=== PATIENT | male | born 1940 | race Caucasian/White ===

== ENCOUNTER 2017-03-06 10:17 | Emergency (ER) | payer MEDICARE, OTHER ==
[2017-03-06] MEDS ORDERED: Sodium Chloride 0.9% 1,000 ML IV SCH (10:45)
[2017-03-06] MEDS ORDERED: Sodium Chloride 0.9% 10 ML Syringe FLUSH PRN (10:45)
[2017-03-06] MEDS ORDERED: Ondansetron 4 MG/2 ML SDV IVPUSH ONE (10:45)
--- NOTE | 2017-03-06 10:49 | EDM.PDOC ---
ED HPI GENERAL MEDICAL PROBLEM - General Chief Complaint: General Stated Complaint: weakness Time Seen by Provider: 03/06/17 10:23 Source of Information: Reports: Patient, Family History Limitations: Reports: No Limitations - History of Present Illness INITIAL COMMENTS - FREE TEXT/NARRATIVE: Patient comes in after feeling fatigued, weak, tired, and decrease in appetite approximate 4-5 days. Patient has an active history of lymphoma currently undergoing treatment at the [facility]. His chemotherapy regimens is every 28 days his last treatment was the week before and the As though 13 of March. Patient/family had called [facility] today in hopes of talking to them regarding patient's status. They werer on hold for over 20 mins and unable to reach anyone so they brought him in here. Patient also complains of the cough that has progressed over the last week at times he is coughing up sputum and other times to try half and loose stool the past week. He has been using his inhaler a little bit more that is prescribed him. He has not had much energy to get around the house at times and does not even have enough energy to get up and eat. He denies any fever at the current time feels fatigued and tired and has noticed that his skin color is more yellow. Onset: Gradual Onset Date: 03/02/17 Duration: Getting Worse Quality: Reports: Other (fatigue, tired, run down) Severity: Mild Associated Symptoms: Reports: Cough, cough w sputum, Loss of Appetite, Malaise, Weakness Neck Pain Score (Numeric/FACES): 2 - Related Data Allergies Allergy/AdvReac Type Severity Reaction Status Date / Time doxycycline Allergy Other Verified 03/06/17 10:37 Home Meds: Home Meds Acetaminophen [Tylenol] 650 mg PO Q8H PRN 03/06/17 [History] Acyclovir [Zovirax] 400 mg PO BID 03/06/17 [History] Albuterol [Ventolin HFA] 2 puff IH Q4H PRN 03/06/17 [History] Aspirin 325 mg PO DAILY 03/06/17 [History] Dutasteride [Dutasteride] 1 tab PO DAILY 03/06/17 [History] Omeprazole [Omeprazole] 20 mg PO DAILY 03/06/17 [History] Prochlorperazine Maleate [Compazine] 10 mg PO QID PRN 03/06/17 [History] Sulfamethoxazole/Trimethoprim [Bactrim Ds Tablet] 1 each PO MOWEFR 03/06/17 [ History] Tamsulosin [Flomax] 0.4 mg PO BIDPC 03/06/17 [History] diphenhydrAMINE HCl [Benadryl] 25 mg PO Q8H PRN 03/06/17 [History] Past Medical History Oncologic (Cancer) History: Reports: Non-Hodgkin's Lymphoma Social & Family History - Tobacco Use Smoking Status *Q: Never Smoker - Recreational Drug Use Recreational Drug Use: No ED ROS GENERAL - Review of Systems Review Of Systems: See Below Constitutional: Reports: Chills, Malaise, Weakness, Fatigue, Decreased Appetite , Weight Loss HEENT: Reports: No Symptoms Respiratory: Reports: Cough, Sputum GI/Abdominal: Reports: Anorexia, Diarrhea, Nausea : Reports: No Symptoms Musculoskeletal: Reports: No Symptoms Skin: Reports: Jaundice Neurological: Reports: No Symptoms Psychiatric: Reports: No Symptoms Immunologic: Reports: No Symptoms ED EXAM, GENERAL - Physical Exam Exam: See Below Exam Limited By: No Limitations General Appearance: Alert, Lethargic (will answer questions but closes eyes inbetween answers) Respiratory/Chest: Decreased Breath Sounds, Crackles Cardiovascular: Normal Peripheral Pulses GI/Abdominal: Normal Bowel Sounds, Soft, Non-Tender, No Distention, No Mass, Pelvis Stable, Abnormal Bowel Sounds (hyperactive ) (Male) Exam: Deferred Rectal (Males) Exam: Deferred Extremities: Normal Inspection, Normal Range of Motion, Non-Tender, No Pedal Edema, Normal Capillary Refill Neurological: Alert, Oriented Psychiatric: Normal Affect, Normal Mood Skin Exam: Warm, Dry, Jaundice ED GENERAL MEDICAL PROCEDURES - Additional/Other Procedure(s) Other (Free Text) Procedure(s): blood transfusion ordered due to severe anemia. The risk and the benefits have been discussed with the pt. Consent formed signed. Code status discussed. Pt would like to continue with the blood transfusion and would like to remain a code level 1 and have all resuscitated effort completed if needed. Course - Vital Signs Last Recorded V/S: Last Vital Signs Temp 37.3 C 03/06/17 13:11 Pulse 90 03/06/17 13:10 Resp 16 03/06/17 13:10 BP 113/44 L 03/06/17 13:10 Pulse Ox 98 03/06/17 13:10 - Orders/Labs/Meds Orders: Active Orders 24 hr Category Date Time Status EKG Documentation Completion [RC] ROUTINE Care 03/06/17 10:42 Ordered Verify Patient Consent Obtain [RC] ASDIRECTED Care 03/06/17 11:20 Active Chest 1V Frontal [CR] Stat Exams 03/06/17 10:42 Taken ANTIBODY ID [REF] Stat Lab 03/06/17 10:54 Received ANTIBODY IDENTIFICATION [BBK] Stat Lab 03/06/17 10:54 Results CULTURE BLOOD [BC] Stat Lab 03/06/17 10:54 Received CULTURE BLOOD [BC] Stat Lab 03/06/17 11:01 Received HAPTOGLOBIN [REF] Stat Lab 03/06/17 12:18 Received MISC TEST Stat Lab 03/06/17 12:18 Received RED BLOOD CELLS LP [BBK] Stat Lab 03/06/17 10:54 Results RETICULOCYTE COUNT [REF] Stat Lab 03/06/17 12:18 Received TYPE AND SCREEN [BBK] Stat Lab 03/06/17 10:54 Results Sodium Chloride 0.9% [Normal Saline] 1,000 ml Med 03/06/17 10:45 Active IV ASDIRECTED Sodium Chloride 0.9% [Normal Saline] 1,000 ml Med 03/06/17 12:42 Active IV ONETIME Sodium Chloride 0.9% [Saline Flush] Med 03/06/17 10:45 Active 10 ml FLUSH ASDIRECTED PRN cefTRIAXone [Rocephin] Med 03/06/17 12:15 Active 1 gm IVPUSH DAILY Blood Culture x2 Reflex Set [OM.PC] Stat Oth 03/06/17 10:42 Ordered Blood Transfusion Reflex Orders [OM.PC] Routine Oth 03/06/17 11:20 Ordered Peripheral IV Insertion Adult [OM.PC] Routine Oth 03/06/17 10:45 Ordered Transfuse Red Blood Cells [COMM] Stat Oth 03/06/17 11:20 Ordered Medication Orders Ceftriaxone Sodium (Rocephin) 1 gm IVPUSH DAILY [facility] Last Admin: 03/06/17 12:27 Dose: 1 gm Sodium Chloride (Normal Saline) 1,000 mls @ 1,000 mls/hr IV ASDIRECTED GREGG Last Admin: 03/06/17 11:25 Dose: 1,000 mls/hr Sodium Chloride (Normal Saline) 1,000 mls @ 1,000 mls/hr IV ONETIME ONE Stop: 03/06/17 13:41 Sodium Chloride (Saline Flush) 10 ml FLUSH ASDIRECTED PRN PRN Reason: Keep Vein Open Labs: Laboratory Tests 03/06/17 03/06/17 03/06/17 Range/Units 10:54 10:54 10:54 WBC 4.3 (4.0-10.0) x10^3/uL RBC 1.26 L (4.5-6.0) x10^6/uL Hgb 3.8 L* (14.0-18.0) g/dL Hct 11.4 L (40.0-52.0) % MCV 90.5 (78.0-93.0) fL MCH 30.2 (26.0-32.0) pg MCHC 33.3 (32.0-36.0) g/dL RDW Coeff of Derian 18.9 H (10.0-15.0) % Plt Count 89 L (130-400) x10^3/uL Add Manual Diff Yes Neutrophils % (Manual) 90 H (50-80) % Band Neutrophils % 2 (0-6) % Lymphocytes % (Manual) 2 L (25-50) % Monocytes % (Manual) 6 (2-11) % Platelet Estimate Decreased L Polychromasia 1+ slight H Poikilocytosis 1+ slight H Anisocytosis 4+ H Microcytosis 3+ marked H Macrocytosis 1+ slight H Spherocytes 2+ moderate H PT (9.8-11.8) SEC INR (2.0-3.5) APTT (22.0-34.0) SEC Sodium 140 (136-145) mmol/L Potassium 4.3 (3.5-5.1) mmol/L Chloride 105 (98-107) mmol/L Carbon Dioxide 23 (21-32) mmol/L BUN 17 (7-18) mg/dL Creatinine 0.9 (0.70-1.30) mg/dL Est Cr Clr Drug Dosing 82.45 mL/min Estimated GFR (MDRD) > 60 Glucose 132 H (74-106) mg/dL Lactic Acid 2.2 H* (0.4-2.0) mmol/L Calcium 7.8 L (8.5-10.1) mg/dL Corrected Calcium 8.36 L (8.5-10.1) mg/dL Total Bilirubin 2.6 H (0.2-1.0) mg/dL AST 57 H (15-37) U/L ALT 12 L (16-63) U/L Alkaline Phosphatase 71 (46-116) U/L C-Reactive Protein 1.0 H (<=0.9) mg/dL Total Protein 5.3 L (6.4-8.2) g/dL Albumin 3.3 L (3.4-5.0) g/dL Globulin 2.0 Albumin/Globulin Ratio 1.65 Amylase 29 (25-115) U/L Lipase 69 L (73-393) U/L Urine Color (YELLOW) Urine Appearance (CLEAR) Urine pH (5.0-8.0) Ur Specific Warrior Urine Protein (NEGATIVE) mg/dL Urine Glucose (UA) (NEGATIVE) mg/dL Urine Ketones (NEGATIVE) mg/dL Urine Occult Blood (NEGATIVE) Urine Nitrite (NEGATIVE) Urine Bilirubin (NEGATIVE) Urine Urobilinogen (0.2) EU/dL Ur Leukocyte Esterase (NEGATIVE) Urine RBC (NOT SEEN) /HPF Urine WBC (NOT SEEN) /HPF Ur Squamous Epith Cells (NEGATIVE) /HPF Urine Bacteria (NEGATIVE) /HPF Urine Mucus (NEGATIVE) /LPF Stool Occult Blood (NEGATIVE) Gel Antibody Screen Crossmatch 03/06/17 03/06/17 03/06/17 Range/Units 10:54 10:54 11:34 WBC (4.0-10.0) x10^3/uL RBC (4.5-6.0) x10^6/uL Hgb (14.0-18.0) g/dL Hct (40.0-52.0) % MCV (78.0-93.0) fL MCH (26.0-32.0) pg MCHC (32.0-36.0) g/dL RDW Coeff of Derian (10.0-15.0) % Plt Count (130-400) x10^3/uL Add Manual Diff Neutrophils % (Manual) (50-80) % Band Neutrophils % (0-6) % Lymphocytes % (Manual) (25-50) % Monocytes % (Manual) (2-11) % Platelet Estimate Polychromasia Poikilocytosis Anisocytosis Microcytosis Macrocytosis Spherocytes PT 11.0 (9.8-11.8) SEC INR 1.0 L (2.0-3.5) APTT 21.4 L (22.0-34.0) SEC Sodium (136-145) mmol/L Potassium (3.5-5.1) mmol/L Chloride (98-107) mmol/L Carbon Dioxide (21-32) mmol/L BUN (7-18) mg/dL Creatinine (0.70-1.30) mg/dL Est Cr Clr Drug Dosing mL/min Estimated GFR (MDRD) Glucose (74-106) mg/dL Lactic Acid (0.4-2.0) mmol/L Calcium (8.5-10.1) mg/dL Corrected Calcium (8.5-10.1) mg/dL Total Bilirubin (0.2-1.0) mg/dL AST (15-37) U/L ALT (16-63) U/L Alkaline Phosphatase (46-116) U/L C-Reactive Protein (<=0.9) mg/dL Total Protein (6.4-8.2) g/dL Albumin (3.4-5.0) g/dL Globulin Albumin/Globulin Ratio Amylase (25-115) U/L Lipase (73-393) U/L Urine Color Radha H (YELLOW) Urine Appearance Clear (CLEAR) Urine pH 7.0 (5.0-8.0) Ur Specific Warrior 1.010 Urine Protein Trace H (NEGATIVE) mg/dL Urine Glucose (UA) Negative (NEGATIVE) mg/dL Urine Ketones Negative (NEGATIVE) mg/dL Urine Occult Blood Moderate H (NEGATIVE) Urine Nitrite Negative (NEGATIVE) Urine Bilirubin Small H (NEGATIVE) Urine Urobilinogen 4.0 H (0.2) EU/dL Ur Leukocyte Esterase Trace H (NEGATIVE) Urine RBC 0-5 (NOT SEEN) /HPF Urine WBC 0-5 (NOT SEEN) /HPF Ur Squamous Epith Cells Rare (NEGATIVE) /HPF Urine Bacteria Few H (NEGATIVE) /HPF Urine Mucus Rare H (NEGATIVE) /LPF Stool Occult Blood (NEGATIVE) Gel Antibody Screen Positive Crossmatch See Detail 03/06/17 03/06/17 Range/Units 12:18 12:34 WBC 3.9 L (4.0-10.0) x10^3/uL RBC 1.16 L (4.5-6.0) x10^6/uL Hgb 3.5 L* (14.0-18.0) g/dL Hct 10.6 L (40.0-52.0) % MCV 91.4 (78.0-93.0) fL MCH 30.2 (26.0-32.0) pg MCHC 33.0 (32.0-36.0) g/dL RDW Coeff of Derian 18.8 H (10.0-15.0) % Plt Count 78 L (130-400) x10^3/uL Add Manual Diff Yes Neutrophils % (Manual) 89 H (50-80) % Band Neutrophils % 2 (0-6) % Lymphocytes % (Manual) 1 L (25-50) % Monocytes % (Manual) 8 (2-11) % Platelet Estimate Decreased L Polychromasia Poikilocytosis Anisocytosis 4+ H Microcytosis 3+ marked H Macrocytosis 1+ slight H Spherocytes 2+ moderate H PT (9.8-11.8) SEC INR (2.0-3.5) APTT (22.0-34.0) SEC Sodium (136-145) mmol/L Potassium (3.5-5.1) mmol/L Chloride (98-107) mmol/L Carbon Dioxide (21-32) mmol/L BUN (7-18) mg/dL Creatinine (0.70-1.30) mg/dL Est Cr Clr Drug Dosing mL/min Estimated GFR (MDRD) Glucose (74-106) mg/dL Lactic Acid (0.4-2.0) mmol/L Calcium (8.5-10.1) mg/dL Corrected Calcium (8.5-10.1) mg/dL Total Bilirubin (0.2-1.0) mg/dL AST (15-37) U/L ALT (16-63) U/L Alkaline Phosphatase (46-116) U/L C-Reactive Protein (<=0.9) mg/dL Total Protein (6.4-8.2) g/dL Albumin (3.4-5.0) g/dL Globulin Albumin/Globulin Ratio Amylase (25-115) U/L Lipase (73-393) U/L Urine Color (YELLOW) Urine Appearance (CLEAR) Urine pH (5.0-8.0) Ur Specific Warrior Urine Protein (NEGATIVE) mg/dL Urine Glucose (UA) (NEGATIVE) mg/dL Urine Ketones (NEGATIVE) mg/dL Urine Occult Blood (NEGATIVE) Urine Nitrite (NEGATIVE) Urine Bilirubin (NEGATIVE) Urine Urobilinogen (0.2) EU/dL Ur Leukocyte Esterase (NEGATIVE) Urine RBC (NOT SEEN) /HPF Urine WBC (NOT SEEN) /HPF Ur Squamous Epith Cells (NEGATIVE) /HPF Urine Bacteria (NEGATIVE) /HPF Urine Mucus (NEGATIVE) /LPF Stool Occult Blood Negative (NEGATIVE) Gel Antibody Screen Crossmatch Meds: Medications Generic Name Dose Route Start Last Admin Trade Name Freq PRN Reason Stop Dose Admin Ceftriaxone Sodium 1 gm 03/06/17 12:15 03/06/17 12:27 Rocephin IVPUSH 1 gm DAILY GREGG Administration Sodium Chloride 1,000 mls @ 1,000 mls/hr 03/06/17 10:45 03/06/17 11:25 Normal Saline IV 1,000 mls/hr ASDIRECTED GREGG Administration Sodium Chloride 1,000 mls @ 1,000 mls/hr 03/06/17 12:42 Normal Saline IV 03/06/17 13:41 ONETIME ONE Sodium Chloride 10 ml 03/06/17 10:45 Saline Flush FLUSH ASDIRECTED PRN Keep Vein Open Discontinued Medications Generic Name Dose Route Start Last Admin Trade Name Freq PRN Reason Stop Dose Admin Acetaminophen 1,000 mg 03/06/17 12:27 03/06/17 12:30 Tylenol Extra Strength PO 03/06/17 12:28 1,000 mg ONETIME ONE Administration Ceftriaxone Sodium 1 gm 03/06/17 11:32 03/06/17 12:44 Rocephin IM 03/06/17 11:33 Not Given ONETIME ONE Diphenhydramine HCl Confirm 03/06/17 13:14 Benadryl Administered 03/06/17 13:15 Dose 100 mg .ROUTE .STK-MED ONE Vancomycin HCl 1 gm/ Sodium 250 mls @ 250 mls/hr 03/06/17 11:31 03/06/17 12: 37 Chloride IV 03/06/17 12:30 250 mls/hr ONETIME ONE Administration Ondansetron HCl 4 mg 03/06/17 10:45 03/06/17 11:26 Zofran IVPUSH 03/06/17 10:46 4 mg ONETIME ONE Administration - Re-Assessments/Exams Free Text/Narrative Re-Assessment/Exam: 03/06/17 12:[address] Moreno who is the pt's oncologist and the provider propulsion machinery service engineer today at [facility]. He would like addition labs ordered and blood products given here to help stabilize prior to transfer. The facility will call back with a room as one becomes available. Additional labs were ordered per his request and will be sent to [facility] in assumption. Results will need to be sent through the [employer] system. Pt still denies any pain or discomfort of any type. Will continue to monitor. O2 saturations have flucuated but have remained 90% and below on room air. supplemental O2 provided. 03/06/17 12:43 12:43 Pt is becoming confused and trashing upon the bed and not responding appropriately. Contact with Dr. Moreno made recommendations: send to [facility]. ER provider states with turn of events and decline in mentation is advised to go ahead and give uncrossed O- universal blood 2 units. We will has had a transfusion immediately. This patient will be taken by ground ALS crew to the [facility] emergency Department with a teen is awaiting for him. CBC was redrawn labs are provided to Dr. Moreno along with the ER physician Dr. chinchilla. The team will be awaiting. 03/06/17 12:56 03/06/17 13:20 Ambulance on site pt discharged. O- blood 2 units given, 2 L fluids given, Rocephin 1gm, Vanco 1gm, ER contacted regarding status. Mentation still remains diminished. Not answering questions appropriate, eyes remaining closes, moaning , will open eyes but unable to follow commands. Elevated temp as well did give Tylenol. 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, Pleural effusion - Discharge Information Referrals: Danelle Ryder MD [Primary Care Provider] - Forms: ED Department Discharge, Interfacility Transfer EMTALA - My Orders Last 24 Hours: My Active Orders 03/06/17 10:42 EKG Documentation Completion [RC] ROUTINE Chest 1V Frontal [CR] Stat Blood Culture x2 Reflex Set [OM.PC] Stat 03/06/17 10:45 Sodium Chloride 0.9% [Normal Saline] 1,000 ml IV ASDIRECTED Sodium Chloride 0.9% [Saline Flush] 10 ml FLUSH ASDIRECTED PRN Peripheral IV Insertion Adult [OM.PC] Routine 03/06/17 10:54 ANTIBODY ID [REF] Stat ANTIBODY IDENTIFICATION [BBK] Stat CULTURE BLOOD [BC] Stat RED BLOOD CELLS LP [BBK] Stat TYPE AND SCREEN [BBK] Stat 03/06/17 11:01 CULTURE BLOOD [BC] Stat 03/06/17 11:20 Verify Patient Consent Obtain [RC] ASDIRECTED Blood Transfusion Reflex Orders [OM.PC] Routine Transfuse Red Blood Cells [COMM] Stat 03/06/17 12:15 cefTRIAXone [Rocephin] 1 gm IVPUSH DAILY 03/06/17 12:18 HAPTOGLOBIN [REF] Stat MISC TEST Stat RETICULOCYTE COUNT [REF] Stat 03/06/17 12:42 Sodium Chloride 0.9% [Normal Saline] 1,000 ml IV ONETIME - Assessment/Plan Last 24 Hours: My Active Orders 03/06/17 10:42 EKG Documentation Completion [RC] ROUTINE Chest 1V Frontal [CR] Stat Blood Culture x2 Reflex Set [OM.PC] Stat 03/06/17 10:45 Sodium Chloride 0.9% [Normal Saline] 1,000 ml IV ASDIRECTED Sodium Chloride 0.9% [Saline Flush] 10 ml FLUSH ASDIRECTED PRN Peripheral IV Insertion Adult [OM.PC] Routine 03/06/17 10:54 ANTIBODY ID [REF] Stat ANTIBODY IDENTIFICATION [BBK] Stat CULTURE BLOOD [BC] Stat RED BLOOD CELLS LP [BBK] Stat TYPE AND SCREEN [BBK] Stat 03/06/17 11:01 CULTURE BLOOD [BC] Stat 03/06/17 11:20 Verify Patient Consent Obtain [RC] ASDIRECTED Blood Transfusion Reflex Orders [OM.PC] Routine Transfuse Red Blood Cells [COMM] Stat 03/06/17 12:15 cefTRIAXone [Rocephin] 1 gm IVPUSH DAILY 03/06/17 12:18 HAPTOGLOBIN [REF] Stat MISC TEST Stat RETICULOCYTE COUNT [REF] Stat 01/07/18 12:42 Sodium Chloride 0.9% [Normal Saline] 1,000 ml IV ONETIME
[2017-03-06 11:26] LABS: CHLORIDE,CL 105 mmol/L (98-107); SODIUM,NA 140 mmol/L (136-145)
[2017-03-06] MEDS ORDERED: cefTRIAXone 1 GM Vial IM ONE (11:32)
[2017-03-06] MEDS ORDERED: cefTRIAXone 1 GM Vial IVPUSH SCH (12:15)
[2017-03-06] MEDS ORDERED: Acetaminophen 500 MG Tab PO ONE (12:27)
[2017-03-06] MEDS ORDERED: Sodium Chloride 0.9% 1,000 ML IV ONE (12:42)
[2017-03-06 13:10] VITALS: BP 113/44
[2017-03-06] MEDS ORDERED: diphenhydrAMINE 50 MG/ML SDV ONE (13:14)
== END 2017-03-06 13:19 | disposition short-term general hospital (02) ==
LOC: VM.ED 10:17
DX: B99.9 Unspecified infectious disease (principal); D63.8 Anemia in other chronic diseases classified elsewhere; D58.9 Hereditary hemolytic anemia, unspecified; J90 Pleural effusion, not elsewhere classified
CPT/HCPCS: 36415; 36430; 71045; 80053; 81001; 82150; 82274; 83010; 83605; 83690; 85025; 85045; 85610; 85730; 86140; 86850; 86870; 86900; 86901; 86920; 86922; 87040; 93005; 94760; 96361; 96365; 96375; 99291; 99292; A9270; J0696; J2405; J3370; J7030; J7050; P9016; 86880; 99285-GF

== ENCOUNTER 2017-08-10 08:15 | Day surgery (SDC) | payer MEDICARE, OTHER ==
[2017-08-10] MEDS: Lactated Ringers 1,000 ML IV SCH (08:51)
[2017-08-10] MEDS ORDERED: fentaNYL 100 MCG/2 ML SDV ONE (10:55)
[2017-08-10] MEDS ORDERED: Propofol 200 MG/20 ML SDV ONE (10:55)
[2017-08-10 12:00] VITALS: BP 144/61
--- NOTE | 2017-08-10 17:59 | OR ---
PREOPERATIVE DIAGNOSIS: Positive Cologuard test. POSTOPERATIVE DIAGNOSIS: Moderate sigmoid diverticulosis, otherwise normal exam. PROCEDURE PROPOSED AND PROCEDURE DONE: Total flexible colonoscopy. INDICATION: This is a 77-year-old gentleman, who was found to have a positive Cologuard test for screening in the clinic and was referred for colonoscopy. He has had one previously about 15 years ago for screening purposes. TECHNIQUE: The patient was brought to the endoscopy suite, placed in left lateral decubitus position. He was sedated per [employer] [facility] with propofol. The flexible video colonoscope was then passed transanally and under visualization advanced to the cecum. Examination revealed normal ascending, transverse, and descending colon. The sigmoid colon revealed rather moderate diverticulosis and the rectum was normal. There was no evidence of any polyps or colitis or other abnormalities. The scope was then withdrawn. The patient tolerated the procedure well. FINAL IMPRESSION: Sigmoid diverticulosis, otherwise normal exam. PLAN: The patient is reassured. I felt that he really does not need any future colonoscopies based on his age. SCM: 08/10/2017 11:22:42 MODL: 08/10/2017 17:50:53 /[id number]
== END 2017-08-10 12:20 | disposition home or self-care (01) ==
LOC: VM.SDS 08:15
PROVIDERS: ATTEND Surgery
DX: R19.5 Other fecal abnormalities (principal); K57.30 Diverticulosis of large intestine without perforation or abscess without bleeding; K21.9 Gastro-esophageal reflux disease without esophagitis; J18.9 Pneumonia, unspecified organism; J01.00 Acute maxillary sinusitis, unspecified; E66.9 Obesity, unspecified; Z68.34 Body mass index [BMI] 34.0-34.9, adult; Z79.2 Long term (current) use of antibiotics; Z79.82 Long term (current) use of aspirin; Z79.899 Other long term (current) drug therapy; Z88.1 Allergy status to other antibiotic agents; Z87.891 Personal history of nicotine dependence
CPT/HCPCS: 00811; 45378; J2704; J3010; J7120

== ENCOUNTER 2017-08-26 13:29 | Inpatient (IN) | payer MEDICARE, OTHER ==
[2017-08-26] MEDS ORDERED: Sodium Chloride 0.9% 10 ML Syringe FLUSH PRN (13:41)
[2017-08-26] MEDS ORDERED: Ondansetron 4 MG/2 ML SDV IV ONE (13:50)
--- NOTE | 2017-08-26 13:52 | EDM.PDOC ---
ED HPI GENERAL MEDICAL PROBLEM - General Stated Complaint: ER Time Seen by Provider: 08/26/17 13:29 Source of Information: Reports: Patient History Limitations: Reports: No Limitations - History of Present Illness INITIAL COMMENTS - FREE TEXT/NARRATIVE: Patient comes to the emergency department which a sterile started having a 5 days her inability to eat, nausea, diarrhea, and abdominal distention. Pt is currently undergoing cancer treatment with the [facility] in [place]. His oncologist advised the family to have him evaluated in the ER. If pt is needing admission to contact them and they would be willing to discuss transfer. Pt stated he started noticing loose diarrhea 5 days ago approximately 5-10 diarrhea episodes a day. He has also had an increase of abdominal discomfort and distention over the course of the last 5 days along with nausea and vomiting. Recently patient was seen in the clinic and was started on lasix 40mg 4 days ago for increase fluid retention and SOB with movement. Onset: Gradual Location: Reports: Abdomen Quality: Reports: Ache Severity: Moderate Improves with: Reports: Immobilization Worsens with: Reports: Movement - Related Data Allergies Allergy/AdvReac Type Severity Reaction Status Date / Time doxycycline Allergy Other Verified 08/26/17 14:36 Old Spice Shaving Lotion Allergy Hives Uncoded 08/10/17 08:47 Seasonal Allergies Allergy Other Uncoded 08/10/17 08:47 Home Meds: Home Meds Acetaminophen [Tylenol] 650 mg PO Q8H PRN 03/06/17 [History] Acyclovir [Zovirax] 400 mg PO BID 03/06/17 [History] Albuterol [Ventolin HFA] 2 puff IH Q4H PRN 03/06/17 [History] Dutasteride 1 tab PO DAILY 03/06/17 [History] Omeprazole 20 mg PO DAILY 03/06/17 [History] Sulfamethoxazole/Trimethoprim [Bactrim Ds Tablet] 1 each PO MOWEFR 03/06/17 [ History] Aspirin [Halfprin] 81 mg PO DAILY 08/05/17 [History] Budesonide [Pulmicort] 0.5 mg NASBOTH DAILY 08/05/17 [History] Fluticasone Propionate [Flonase] 1 spray NASBOTH BID 08/05/17 [History] Fluticasone Propionate [Flovent HFA 110 MCG] 2 puff INH BID 08/05/17 [History] Folic Acid 1 mg PO DAILY 08/05/17 [History] rOPINIRole HCl [Requip] 0.25 mg PO BEDTIME 08/10/17 [History] Past Medical History HEENT History: Reports: Allergic Rhinitis Other HEENT History: amblyopia. paroxysmal positional vertigo of left ear. retinal degeneration. tinnitus Cardiovascular History: Reports: None Respiratory History: Reports: Asthma Other Respiratory History: dyspnea on exertion. chronic bronchitis Gastrointestinal History: Reports: Diverticulosis, GERD Other Gastrointestinal History: diaphragmatic hernia Genitourinary History: Reports: BPH Musculoskeletal History: Reports: Back Pain, Chronic Other Musculoskeletal History: muscle atrophy Neurological History: Reports: Neuropathy, Peripheral, Other (See Below) Other Neuro History: restless leg syndrome. 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 nasal surgery Cardiovascular Surgical History: Reports: None GI Surgical History: Reports: Appendectomy Other GI Surgeries/Procedures: hemorrhoidectomy ext comp Male Surgical History: Reports: Vasectomy Musculoskeletal Surgical History: Reports: None Oncologic Surgical History: Reports: None ED ROS GENERAL - Review of Systems Review Of Systems: See Below Constitutional: Reports: Malaise, Weakness, Fatigue HEENT: Reports: No Symptoms Respiratory: Reports: Cough Cardiovascular: Reports: No Symptoms Endocrine: Reports: Fatigue GI/Abdominal: Reports: Abdominal Pain, Anorexia, Decreased Appetite, Distension , Flatus, Nausea, Stool Incontinence, Vomiting. Denies: Black Stool, Difficulty Swallowing : Reports: No Symptoms Musculoskeletal: Reports: No Symptoms Skin: Reports: Jaundice Neurological: Reports: No Symptoms Psychiatric: Reports: No Symptoms Hematologic/Lymphatic: Reports: Anemia Immunologic: Reports: No Symptoms ED EXAM, GENERAL - Physical Exam Exam: See Below Exam Limited By: No Limitations General Appearance: Alert, WD/WN, No Apparent Distress Eye Exam: Bilateral Eye: PERRL Head: Atraumatic, Normocephalic Neck: Normal Inspection, Supple, Non-Tender, Full Range of Motion Respiratory/Chest: Decreased Breath Sounds, Crackles, Accessory Muscle Use. No : Retractions Cardiovascular: Tachycardia, Gallop/S4 Peripheral Pulses: 1+: Dorsalis Pedis (L), Dorsalis Pedis (R), 3+: Radial (L), Radial (R) GI/Abdominal: Distended, Tender, Abnormal Bowel Sounds (Male) Exam: Deferred Rectal (Males) Exam: Deferred Back Exam: Normal Inspection, Full Range of Motion Extremities: Pallor Neurological: Alert, Oriented, Normal Gait Psychiatric: Normal Affect, Normal Mood Skin Exam: Jaundice, Pallor Course - Vital Signs Last Recorded V/S: Last Vital Signs Temp 37.4 C 08/26/17 13:35 Pulse 88 08/26/17 13:35 Resp 16 08/26/17 13:35 BP 142/68 H 08/26/17 13:35 Pulse Ox 93 L 08/26/17 13:35 - Orders/Labs/Meds Orders: Active Orders 24 hr Category Date Time Status EKG Documentation Completion [RC] STAT Care 08/26/17 13:42 Active Abdomen Pelvis wo Cont [CT] Stat Exams 08/26/17 13:41 Taken Ang Chest [CT] Stat Exams 08/26/17 14:54 Ordered CULTURE BLOOD [BC] Stat Lab 08/26/17 13:57 Received CULTURE BLOOD [BC] Stat Lab 08/26/17 14:06 Received Piperacillin/Tazobactam [Zosyn] 3.375 gm Med 08/26/17 15:50 Active Sodium Chloride 0.9% [Normal Saline] 100 ml IV ONETIME Sodium Chloride 0.9% [Normal Saline] 1,000 ml Med 08/26/17 14:00 Active IV ASDIRECTED Sodium Chloride 0.9% [Saline Flush] Med 08/26/17 13:41 Active 10 ml FLUSH ASDIRECTED PRN metroNIDAZOLE/Normal Saline [Flagyl 500 MG in NS 100 ML Med 08/26/17 15:50 Active ] 500 mg Premix Bag 1 bag IV ONETIME Blood Culture x2 Reflex Set [OM.PC] Stat Oth 08/26/17 13:41 Ordered Peripheral IV Insertion Adult [OM.PC] Stat Oth 08/26/17 13:40 Ordered Medication Orders Sodium Chloride (Normal Saline) 1,000 mls @ 150 mls/hr IV ASDIRECTED GREGG Last Admin: 08/26/17 14:38 Dose: 150 mls/hr Metronidazole 500 mg/ Premix 100 mls @ 100 mls/hr IV ONETIME ONE Stop: 08/26/17 16:49 Piperacillin Sod/Tazobactam (Sod 3.375 gm/ Sodium Chloride) 100 mls @ 200 mls/ hr IV ONETIME ONE Stop: 08/26/17 16:19 Sodium Chloride (Saline Flush) 10 ml FLUSH ASDIRECTED PRN PRN Reason: Keep Vein Open Labs: Laboratory Tests 08/26/17 08/26/17 08/26/17 Range/Units 13:57 13:57 13:57 WBC 2.4 L (4.0-10.0) x10^3/uL RBC 3.29 L (4.5-6.0) x10^6/uL Hgb 10.0 L D (14.0-18.0) g/dL Hct 30.1 L (40.0-52.0) % MCV 91.5 (78.0-93.0) fL MCH 30.4 (26.0-32.0) pg MCHC 33.2 (32.0-36.0) g/dL RDW Coeff of Derian 16.3 H (10.0-15.0) % Plt Count 89 L (130-400) x10^3/uL Neut % (Auto) 72.2 (50.0-80.0) % Lymph % (Auto) 8.7 L (25.0-50.0) % Wetzel % (Auto) 16.2 H (2.0-11.0) % Eos % (Auto) 2.5 (0.0-4.0) % Baso % (Auto) 0.4 (0.2-1.2) % D-Dimer, Quantitative 2.39 H (<=0.58) mg/LFEU Sodium 139 (136-145) mmol/L Potassium 3.9 (3.5-5.1) mmol/L Chloride 102 (98-107) mmol/L Carbon Dioxide 31 (21-32) mmol/L Anion Gap 9.9 L (10-20) mmol/L BUN 15 (7-18) mg/dL Creatinine 0.9 (0.70-1.30) mg/dL Est Cr Clr Drug Dosing TNP Estimated GFR (MDRD) > 60 Glucose 136 H (74-106) mg/dL Lactic Acid (0.4-2.0) mmol/L Calcium 8.3 L (8.5-10.1) mg/dL Corrected Calcium 8.78 (8.5-10.1) mg/dL Total Bilirubin 2.8 H (0.2-1.0) mg/dL AST 31 (15-37) U/L ALT 12 L (16-63) U/L Alkaline Phosphatase 80 (46-116) U/L Troponin I < 0.017 (<=0.056) ng/mL NT-Pro-B Natriuret Pep 346 (<=450) pg/mL Total Protein 5.9 L (6.4-8.2) g/dL Albumin 3.4 (3.4-5.0) g/dL Globulin 2.5 Albumin/Globulin Ratio 1.36 Amylase 25 (25-115) U/L Lipase 68 L (73-393) U/L 08/26/17 Range/Units 13:57 WBC (4.0-10.0) x10^3/uL RBC (4.5-6.0) x10^6/uL Hgb (14.0-18.0) g/dL Hct (40.0-52.0) % MCV (78.0-93.0) fL MCH (26.0-32.0) pg MCHC (32.0-36.0) g/dL RDW Coeff of Derian (10.0-15.0) % Plt Count (130-400) x10^3/uL Neut % (Auto) (50.0-80.0) % Lymph % (Auto) (25.0-50.0) % Wetzel % (Auto) (2.0-11.0) % Eos % (Auto) (0.0-4.0) % Baso % (Auto) (0.2-1.2) % D-Dimer, Quantitative (<=0.58) mg/LFEU Sodium (136-145) mmol/L Potassium (3.5-5.1) mmol/L Chloride (98-107) mmol/L Carbon Dioxide (21-32) mmol/L Anion Gap (10-20) mmol/L BUN (7-18) mg/dL Creatinine (0.70-1.30) mg/dL Est Cr Clr Drug Dosing Estimated GFR (MDRD) Glucose (74-106) mg/dL Lactic Acid 1.6 (0.4-2.0) mmol/L Calcium (8.5-10.1) mg/dL Corrected Calcium (8.5-10.1) mg/dL Total Bilirubin (0.2-1.0) mg/dL AST (15-37) U/L ALT (16-63) U/L Alkaline Phosphatase (46-116) U/L Troponin I (<=0.056) ng/mL NT-Pro-B Natriuret Pep (<=450) pg/mL Total Protein (6.4-8.2) g/dL Albumin (3.4-5.0) g/dL Globulin Albumin/Globulin Ratio Amylase (25-115) U/L Lipase (73-393) U/L Meds: Medications Generic Name Dose Route Start Last Admin Trade Name Freq PRN Reason Stop Dose Admin Sodium Chloride 1,000 mls @ 150 mls/hr 08/26/17 14:00 08/26/17 14:38 Normal Saline IV 150 mls/hr ASDIRECTED GREGG Administration Metronidazole 500 mg/ Premix 100 mls @ 100 mls/hr 08/26/17 15:50 IV 08/26/17 16:49 ONETIME ONE Piperacillin Sod/Tazobactam 100 mls @ 200 mls/hr 08/26/17 15:50 Sod 3.375 gm/ Sodium Chloride IV 08/26/17 16:19 ONETIME ONE Sodium Chloride 10 ml 08/26/17 13:41 Saline Flush FLUSH ASDIRECTED PRN Keep Vein Open Discontinued Medications Generic Name Dose Route Start Last Admin Trade Name Freq PRN Reason Stop Dose Admin Iopamidol 100 ml 08/26/17 15:07 08/26/17 15:08 Isovue-300 (61%) IVPUSH 08/26/17 15:08 100 ml ONETIME ONE Administration Ondansetron HCl 4 mg 08/26/17 13:50 08/26/17 14:39 Zofran IV 08/26/17 13:51 4 mg ONETIME ONE Administration Departure - Departure Time of Disposition: 16:15 Disposition: Admitted As Inpatient 68 Condition: Good Clinical Impression: Diverticulitis, Acute diarrhea, Dehydration Diverticulosis Qualifiers: Diverticulosis site: unspecified location Diverticulosis bleeding: diverticulosis without bleeding Qualified Code(s): K57.90 - Diverticulosis of intestine, part unspecified, without perforation or abscess without bleeding Abdominal pain Qualifiers: Abdominal location: generalized Qualified Code(s): R10.84 - Generalized abdominal pain - Discharge Information Referrals: Danelle Ryder MD [Primary Care Provider] - - Problem List Review Problem List Initiated/Reviewed/Updated: Yes - My Orders Last 24 Hours: My Active Orders 08/26/17 13:40 Peripheral IV Insertion Adult [OM.PC] Stat 08/26/17 13:41 Abdomen Pelvis wo Cont [CT] Stat Sodium Chloride 0.9% [Saline Flush] 10 ml FLUSH ASDIRECTED PRN Blood Culture x2 Reflex Set [OM.PC] Stat 08/26/17 13:42 EKG Documentation Completion [RC] STAT 08/26/17 13:57 CULTURE BLOOD [BC] Stat 08/26/17 14:00 Sodium Chloride 0.9% [Normal Saline] 1,000 ml IV ASDIRECTED 08/26/17 14:06 CULTURE BLOOD [BC] Stat 08/26/17 14:54 Ang Chest [CT] Stat 08/26/17 15:50 Piperacillin/Tazobactam [Zosyn] 3.375 gm Sodium Chloride 0.9% [Normal Saline] 100 ml IV ONETIME metroNIDAZOLE/Normal Saline [Flagyl 500 MG in NS 100 ML] 500 mg Premix Bag 1 bag IV ONETIME - Assessment/Plan Last 24 Hours: My Active Orders 08/26/17 13:40 Peripheral IV Insertion Adult [OM.PC] Stat 08/26/17 13:41 Abdomen Pelvis wo Cont [CT] Stat Sodium Chloride 0.9% [Saline Flush] 10 ml FLUSH ASDIRECTED PRN Blood Culture x2 Reflex Set [OM.PC] Stat 08/26/17 13:42 EKG Documentation Completion [RC] STAT 08/26/17 13:57 CULTURE BLOOD [BC] Stat 08/26/17 14:00 Sodium Chloride 0.9% [Normal Saline] 1,000 ml IV ASDIRECTED 08/26/17 14:06 CULTURE BLOOD [BC] Stat 08/26/17 14:54 Ang Chest [CT] Stat 08/26/17 15:50 Piperacillin/Tazobactam [Zosyn] 3.375 gm Sodium Chloride 0.9% [Normal Saline] 100 ml IV ONETIME metroNIDAZOLE/Normal Saline [Flagyl 500 MG in NS 100 ML] 500 mg Premix Bag 1 bag IV ONETIME Assessment:: 1. Nausea vomiting 2. Decreased appetite 3. Abdominal pain/distention 4. Diverticulitis/diverticulosis Plan: 1. Labs ordered and results reviewed with the patient 2. EKG ordered and results reviewed with patient 3. IV hydration given for history of 5 days of diarrhea 4. Zofran provided for nausea and vomiting 5. CT abdomen and pelvis without contrast ordered results: minimal extraluminal air in the retroperitoneum, minimal cholecystolithiasis, moderate splenomegaly 6. CT [place] chest for elevated D.dimer lab result and history of PE in the past: CT results negative 7. Dr. Moreno consulted regarding pt findings-[id number] Antibiotic treatment was withheld until consultation with oncologist due to patients condition, decrease white count and current oncology treatment pt is under. Oncologist believes the patients current condition is related to diverticulitis and would recommend treatment of Flagyl and Zosyn and be admitted within local facility. If local facility is not capable of treating diverticulitis they will have internal medicine admit pt. He does not feel surgical intervention/consult is needed especially during the acute infectious process. 8. Zosyn and Flagyl given in ER 9. Prednisone 40mg Given in ER per recommendation of Dr. Moreno. Pt should be placed on prednisone 40mg daily until follow up in his clinic post discharge due to autoimmune concerns. 10. Dr. Ryder contacted regarding possible hospital admission. is willing to admit to acute care and pt will be transferred to the medical floor for further treatment and management.
[2017-08-26] MEDS ORDERED: Sodium Chloride 0.9% 1,000 ML IV SCH (14:00)
[2017-08-26 14:40] LABS: ANION GAP 9.9 mmol/L (10-20); CHLORIDE,CL 102 mmol/L (98-107); SODIUM,NA 139 mmol/L (136-145)
[2017-08-26] MEDS ORDERED: Iopamidol 612 MG/ML 100 ML Bottle IVPUSH ONE (15:07)
[2017-08-26] MEDS ORDERED: Piperacillin/Tazobactam 3.375 GM in Sodium Chloride 0.9% 100 ML IV ONE (15:50)
[2017-08-26] MEDS ORDERED: metroNIDAZOLE/Normal Saline 500 MG in Premix Bag 1 BAG IV ONE (15:50)
[2017-08-26] MEDS ORDERED: predniSONE 20 MG Tab PO STA (16:08)
--- NOTE | 2017-08-26 19:27 | PCM.HP ---
H&P History of Present Illness - General Date of Service: 08/26/17 Admit Problem/Dx: Admission Diagnosis/Problem Admission Diagnosis/Problem Diverticulitis Source of Information: Patient, Family () History Limitations: Reports: No Limitations - History of Present Illness Initial Comments - Free Text/Narative: Mr. Mejía is a 77 yo male who presented to the ER today for evaluation of worsening generalized weakness over the past 2-3 days. He has also been having diarrhea for the past 2-3 days, up to 7 stools/day. No blood in the stools or dark, sticky stools. He has not had any abdominal pain unless he presses fairly firmly on the lower abdomen. No fever or chills. He has had a decreased appetite associated with some nausea but no vomiting. I had seen him earlier in the week with ongoing difficulty with shortness of breath. He was started on lasix and has noticed a reduction in both his shortness of breath as well as his leg swelling. He is feeling much better from that standpoint but then developed the symptoms as above. His hemoglobin had dipped slightly from previous at that point and is down further yet today. He denies any bleeding from anywhere. He has not had any chest pain. His cough is at baseline. He has had increased sinus congestion compared to his usual. - Related Data Allergies/Adverse Reactions: Allergies Allergy/AdvReac Type Severity Reaction Status Date / Time doxycycline Allergy Other Verified 08/26/17 14:36 Old Spice Shaving Lotion Allergy Hives Uncoded 08/10/17 08:47 Seasonal Allergies Allergy Other Uncoded 08/10/17 08:47 Home Medications: Home Meds Acetaminophen [Tylenol] 650 mg PO Q8H PRN 03/06/17 [History] Albuterol [Ventolin HFA] 2 puff IH Q4H PRN 03/06/17 [History] Omeprazole 20 mg PO DAILY 03/06/17 [History] Aspirin [Halfprin] 81 mg PO DAILY 08/05/17 [History] Budesonide [Pulmicort] 0.5 mg NASBOTH DAILY 08/05/17 [History] Fluticasone Propionate [Flonase] 1 spray NASBOTH BID 08/05/17 [History] Fluticasone Propionate [Flovent HFA 110 MCG] 2 puff INH BID 08/05/17 [History] Dutasteride [Avodart] 0.5 mg PO DAILY 08/26/17 [History] Furosemide [Lasix] 40 mg PO DAILY 08/26/17 [History] Past Medical History HEENT History: Reports: Allergic Rhinitis Other HEENT History: amblyopia. paroxysmal positional vertigo of left ear. retinal degeneration. tinnitus Cardiovascular History: Reports: None Respiratory History: Reports: Asthma Other Respiratory History: dyspnea on exertion. chronic bronchitis Gastrointestinal History: Reports: Diverticulosis, GERD Other Gastrointestinal History: diaphragmatic hernia Genitourinary History: Reports: BPH Musculoskeletal History: Reports: Back Pain, Chronic Other Musculoskeletal History: muscle atrophy Neurological History: Reports: Neuropathy, Peripheral, Other (See Below) Other Neuro History: restless leg syndrome. 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 nasal surgery Cardiovascular Surgical History: Reports: None GI Surgical History: Reports: Appendectomy Other GI Surgeries/Procedures: hemorrhoidectomy ext comp Male Surgical History: Reports: Vasectomy Musculoskeletal Surgical History: Reports: None Oncologic Surgical History: Reports: None Social & Family History - Family History Cardiac: Reports: Hypertension : Reports: Cystic Kidney Disease Oncologic: Reports: Bone, Prostate - Tobacco Use Smoking Status *Q: Former Smoker Tobacco Use Within Last Twelve Months: No - Alcohol Use Alcohol Use History: No Alcohol Use in Last Twelve Months: Yes Alcohol Use Frequency: Rarely - Recreational Drug Use Recreational Drug Use: No - Living Situation & Occupation Living situation: Reports: , with Significant Other Occupation: Retired H&P Review of Systems - Review of Systems: Review Of Systems: See Below General: Reports: Malaise, Weakness, Fatigue. Denies: Fever, Chills HEENT: Reports: No Symptoms Pulmonary: Reports: No Symptoms Cardiovascular: Reports: No Symptoms Gastrointestinal: Reports: Diarrhea, Nausea Genitourinary: Reports: No Symptoms Musculoskeletal: Reports: No Symptoms Skin: Reports: No Symptoms Neurological: Reports: No Symptoms Exam - Exam Exam: See Below - Vital Signs Vital Signs: Last Vital Signs Temp 37.0 C 08/26/17 17:38 Pulse 76 08/26/17 17:38 Resp 20 08/26/17 17:38 BP 152/74 H 08/26/17 17:38 Pulse Ox 91 L 08/26/17 17:38 Weight: 109.004 kg - Exam General: Alert, Cooperative HEENT: Conjunctiva Clear, Mucosa Moist & [place], Posterior Pharynx Clear, Pupils Equal, Pupils Reactive Neck: Supple, Trachea Midline. No: Lymphadenopathy, Thyromegaly Lungs: Clear to Auscultation, Normal Respiratory Effort Cardiovascular: Regular Rate, Regular Rhythm, Normal S1, Normal S2 GI/Abdominal Exam: Normal Bowel Sounds, Soft, No Organomegaly, No Distention, No Mass, Tender (lower quadrants bilaterally with deep palpation). No: Guarding , Rigid, Rebound Extremities: Normal Inspection, Non-Tender, Normal Capillary Refill, Pedal Edema (trace bilateral) Peripheral Pulses: 2+: Radial (L), Radial (R) Skin: Warm, Dry, Intact - Patient Data Lab Results Last 24 hrs: Laboratory Results - last 24 hr 08/26/17 08/26/17 08/26/17 Range/Units 13:57 13:57 13:57 WBC 2.4 L (4.0-10.0) x10^3/uL RBC 3.29 L (4.5-6.0) x10^6/uL Hgb 10.0 L D (14.0-18.0) g/dL Hct 30.1 L (40.0-52.0) % MCV 91.5 (78.0-93.0) fL MCH 30.4 (26.0-32.0) pg MCHC 33.2 (32.0-36.0) g/dL RDW Coeff of Derian 16.3 H (10.0-15.0) % Plt Count 89 L (130-400) x10^3/uL Neut % (Auto) 72.2 (50.0-80.0) % Lymph % (Auto) 8.7 L (25.0-50.0) % [place] % (Auto) 16.2 H (2.0-11.0) % Eos % (Auto) 2.5 (0.0-4.0) % Baso % (Auto) 0.4 (0.2-1.2) % D-Dimer, Quantitative 2.39 H (<=0.58) mg/LFEU Sodium 139 (136-145) mmol/L Potassium 3.9 (3.5-5.1) mmol/L Chloride 102 (98-107) mmol/L Carbon Dioxide 31 (21-32) mmol/L Anion Gap 9.9 L (10-20) mmol/L BUN 15 (7-18) mg/dL Creatinine 0.9 (0.70-1.30) mg/dL Est Cr Clr Drug Dosing TNP Estimated GFR (MDRD) > 60 Glucose 136 H (74-106) mg/dL Lactic Acid (0.4-2.0) mmol/L Calcium 8.3 L (8.5-10.1) mg/dL Corrected Calcium 8.78 (8.5-10.1) mg/dL Total Bilirubin 2.8 H (0.2-1.0) mg/dL AST 31 (15-37) U/L ALT 12 L (16-63) U/L Alkaline Phosphatase 80 (46-116) U/L Troponin I < 0.017 (<=0.056) ng/mL NT-Pro-B Natriuret Pep 346 (<=450) pg/mL Total Protein 5.9 L (6.4-8.2) g/dL Albumin 3.4 (3.4-5.0) g/dL Globulin 2.5 Albumin/Globulin Ratio 1.36 Amylase 25 (25-115) U/L Lipase 68 L (73-393) U/L 08/26/17 Range/Units 13:57 WBC (4.0-10.0) x10^3/uL RBC (4.5-6.0) x10^6/uL Hgb (14.0-18.0) g/dL Hct (40.0-52.0) % MCV (78.0-93.0) fL MCH (26.0-32.0) pg MCHC (32.0-36.0) g/dL RDW Coeff of Derian (10.0-15.0) % Plt Count (130-400) x10^3/uL Neut % (Auto) (50.0-80.0) % Lymph % (Auto) (25.0-50.0) % [place] % (Auto) (2.0-11.0) % Eos % (Auto) (0.0-4.0) % Baso % (Auto) (0.2-1.2) % D-Dimer, Quantitative (<=0.58) mg/LFEU Sodium (136-145) mmol/L Potassium (3.5-5.1) mmol/L Chloride (98-107) mmol/L Carbon Dioxide (21-32) mmol/L Anion Gap (10-20) mmol/L BUN (7-18) mg/dL Creatinine (0.70-1.30) mg/dL Est Cr Clr Drug Dosing Estimated GFR (MDRD) Glucose (74-106) mg/dL Lactic Acid 1.6 (0.4-2.0) mmol/L Calcium (8.5-10.1) mg/dL Corrected Calcium (8.5-10.1) mg/dL Total Bilirubin (0.2-1.0) mg/dL AST (15-37) U/L ALT (16-63) U/L Alkaline Phosphatase (46-116) U/L Troponin I (<=0.056) ng/mL NT-Pro-B Natriuret Pep (<=450) pg/mL Total Protein (6.4-8.2) g/dL Albumin (3.4-5.0) g/dL Globulin Albumin/Globulin Ratio Amylase (25-115) U/L Lipase (73-393) U/L Result Diagrams: 08/26/17 13:57 08/26/17 13:57 - Problem List (1) Diverticulitis SNOMED Code(s): 646193390 ICD Code: K57.92 - DVTRCLI OF INTEST, PART UNSP, W/O PERF OR ABSCESS W/O BLEED Status: Acute Current Visit: Yes (2) Autoimmune hemolytic anemia SNOMED Code(s): 405918279 ICD Code: D59.1 - OTHER AUTOIMMUNE HEMOLYTIC ANEMIAS Status: Acute Current Visit: Yes (3) Marginal zone lymphoma SNOMED Code(s): 304207090, 699265119 ICD Code: C85.80 - OTH TYPES OF NON-HODGKIN LYMPHOMA, UNSPECIFIED SITE Status: Chronic Current Visit: Yes (4) Pleural effusion SNOMED Code(s): 19269530 ICD Code: J90 - PLEURAL EFFUSION, NOT ELSEWHERE CLASSIFIED Status: Chronic Current Visit: No (5) Restless leg syndrome SNOMED Code(s): 61686694 ICD Code: G25.81 - RESTLESS LEGS SYNDROME Status: Chronic Current Visit: Yes (6) GERD (gastroesophageal reflux disease) SNOMED Code(s): 002293219 ICD Code: K21.9 - GASTRO-ESOPHAGEAL REFLUX DISEASE WITHOUT ESOPHAGITIS Status: Chronic Current Visit: Yes Qualifiers: Esophagitis presence: esophagitis presence not specified Qualified Code(s) : K21.9 - Gastro-esophageal reflux disease without esophagitis (7) Chronic sinusitis SNOMED Code(s): 37142335 ICD Code: J32.9 - CHRONIC SINUSITIS, UNSPECIFIED Status: Chronic Current Visit: Yes Qualifiers: Sinusitis location: pansinusitis Qualified Code(s): J32.4 - Chronic pansinusitis (8) BPH (benign prostatic hyperplasia) SNOMED Code(s): 676475315 ICD Code: N40.0 - BENIGN PROSTATIC HYPERPLASIA WITHOUT LOWER URINRY TRACT SYMP Status: Chronic Current Visit: Yes Qualifiers: Lower urinary tract symptom presence: symptoms absent Qualified Code(s): N40.0 - Benign prostatic hyperplasia without lower urinary tract symptoms Problem List Initiated/Reviewed/Updated: Yes Orders Last 24hrs: Active Orders 24 hr Category Date Time Status Admission Status [Patient Status] [ADT] Routine ADT 08/26/17 16:15 Active Notify Provider Vital Signs [RC] 06,10,14,18,22,02 Care 08/26/17 17:51 Active Oxygen Therapy [RC] .PRN Care 08/26/17 17:51 Active Up With Assistance [RC] ASDIRECTED Care 08/26/17 17:51 Active VTE/DVT Education [RC] .PRN Care 08/26/17 17:51 Active Vital Signs [RC] 06,10,14,18,22,02 Care 08/26/17 17:51 Active Regular Diet [DIET] Diet 08/26/17 Dinner Active Abdomen Pelvis wo Cont [CT] Stat Exams 08/26/17 13:41 Taken Ang Chest [CT] Stat Exams 08/26/17 14:54 Taken CBC WITH AUTO DIFF [HEME] Routine Lab 08/27/17 05:11 Ordered COMPREHENSIVE METABOLIC PN,CMP [CHEM] Routine Lab 08/27/17 05:11 Ordered CULTURE BLOOD [BC] Stat Lab 08/26/17 13:57 Received CULTURE BLOOD [BC] Stat Lab 08/26/17 14:06 Received Aspirin [Halfprin] Med 08/27/17 08:00 Ordered 81 mg PO DAILY Dutasteride [Avodart] Med 08/27/17 08:00 Ordered 0.5 mg PO DAILY Fluticasone Propionate [Flonase] Med 08/26/17 20:00 Ordered 1 spray NASBOTH BID Fluticasone Propionate [Flovent HFA 110 MCG] Med 08/26/17 20:00 Ordered 2 puff INH BID Furosemide [Lasix] Med 08/27/17 08:00 Ordered 40 mg PO DAILY Omeprazole Med 08/27/17 08:00 Ordered 20 mg PO DAILY Piperacillin/Tazobactam [Zosyn] 3.375 gm Med 08/26/17 23:00 Active Sodium Chloride 0.9% [Normal Saline] 100 ml IV Q8H Sodium Chloride 0.9% [Saline Flush] Med 08/26/17 13:41 Active 10 ml FLUSH ASDIRECTED PRN predniSONE Med 08/27/17 08:00 Active 40 mg PO WITHBREAKFAST Blood Culture x2 Reflex Set [OM.PC] Stat Oth 08/26/17 13:41 Ordered Peripheral IV Insertion Adult [OM.PC] Stat Oth 08/26/17 13:40 Ordered Sequential Compression Device [OM.PC] Per Unit Routine Oth 08/26/17 17:52 Ordered Resuscitation Status Routine Resus Stat 08/26/17 17:51 Ordered Medication Orders Aspirin (Halfprin) 81 mg PO DAILY GREGG Fluticasone Propionate (Flonase) 0 gm NASBOTH BID GREGG Furosemide (Lasix) 40 mg PO DAILY [facility]GG Piperacillin Sod/Tazobactam (Sod 3.375 gm/ Sodium Chloride) 100 mls @ 25 mls/ hr IV Q8H GREGG Non-Formulary Medication (Dutasteride [Avodart]) 0.5 mg PO DAILY GREGG Non-Formulary Medication (Fluticasone Propionate [Flovent Hfa 110 Mcg]) 2 puff INH BID GREGG Omeprazole (Omeprazole) 20 mg PO DAILY GREGG Prednisone (Prednisone) 40 mg PO WITHBREAKFAST GREGG Sodium Chloride (Saline Flush) 10 ml FLUSH ASDIRECTED PRN PRN Reason: Keep Vein Open Assessment/Plan Comment:: #1 Diverticulitis - Confirmed by CT scan. Patient has longstanding history of diverticulosis. No other focal pathology on CT scan. - Concern for possible retroperitoneal air. [facility] significant nor concerning. Agreed with patient's oncologist (see below) that it is acceptable for him to stay in [place] as they would plan to medically manage him in [place] as well. - The patient and his also prefer to stay in [place] rather than transferring to [place] if possible. - WBC low. - Patient does not meet any other sepsis criteria. In light of recent issues with fluid overload, will hold off on additional continuous IV fluids above what was given in the ER and bolus IV fluids as needed. - Blood cultures are pending. - Will continue zosyn q6 hours. This should be adequate coverage for relevant bacteria so will not also continue flagyl. - Recheck labs in the am. 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 - Has been discussed with oncology who did not feel the patient required transfer to [place] and would be appropriate to remain in [place]. - Advised restarting prednisone at 40 mg daily. - Will recheck labs daily. #4 Pleural Effusions - Recent Echo without significant abnormalities. - Patient symptoms much better on lasix. - Will continue 40 mg daily. #5 RLS #6 GERD #7 Chronic Sinusitis #8 BPH - Continue home medications. Patient will be admitted [facility] as it is anticipated he will require at least 2 nights in the hospital. As above, his case has been reviewed with oncology and general surgery and neither team felt it was necessary for him to transfer to [place]. Patient and in agreement with admission locally as well but ok with transfer if need be. He wishes to be full code. No pharmacologic VTE prophylaxis in light of his hematologic abnormalities - will do SCD's.
[2017-08-26] MEDS: Fluticasone Propionate Nasal Spray 16 GM Bottle NASBOTH SCH (21:04)
[2017-08-26] MEDS: rOPINIRole 0.5 MG Tab PO SCH (21:06)
[2017-08-26] MEDS: Piperacillin/Tazobactam 3.375 GM in Sodium Chloride 0.9% 100 ML IV SCH (22:42)
[2017-08-27] MEDS: Piperacillin/Tazobactam 3.375 GM in Sodium Chloride 0.9% 100 ML IV SCH ×3 (06:33→23:50)
[2017-08-27] MEDS: Omeprazole 20 MG Cap.CR PO SCH (06:33)
[2017-08-27] MEDS: Aspirin 81 MG Tab.EC PO SCH (08:23)
[2017-08-27] MEDS: Furosemide 40 MG Tab PO SCH (08:23)
[2017-08-27] MEDS: Finasteride 5 MG Tab PO SCH (08:24)
[2017-08-27] MEDS: predniSONE 20 MG Tab PO SCH (08:24)
[2017-08-27] MEDS: Mometasone Furoate Powder 220 MCG/Puff 14 Dose Inhaler INH SCH (08:24)
[2017-08-27] MEDS: Fluticasone Propionate Nasal Spray 16 GM Bottle NASBOTH SCH ×2 (08:25→20:39)
[2017-08-27 08:38] LABS: CHLORIDE,CL 104 mmol/L (98-107); SODIUM,NA 139 mmol/L (136-145)
[2017-08-27 08:39] LABS: ANION GAP 12.2 mmol/L (10-20)
--- NOTE | 2017-08-27 12:59 | PCM.PN ---
- General Info Date of Service: 08/27/17 Subjective Update: Pt states his lower abdomen is mildly sore but it has been like that for " a long time". It is not worse than yesterday. He had diarrhea yesterday but none since coming to the hospital, His says she has had some GI symptoms as well - Review of Systems Pulmonary: Reports: No Symptoms Genitourinary: Reports: No Symptoms - Patient Data Vitals - Most Recent: Last Vital Signs Temp 97.4 F 08/27/17 10:00 Pulse 73 08/27/17 10:00 Resp 16 08/27/17 10:00 BP 127/59 L 08/27/17 10:00 Pulse Ox 92 L 08/27/17 10:00 Weight - Most Recent: 240 lb 5 oz I&O - Last 24 Hours: Intake & Output 08/26/17 08/27/17 08/27/17 22:59 06:59 14:59 Intake Total 240 405 Output Total 750 Balance 240 -345 Lab Results Last 24 Hours: Laboratory Results - last 24 hr 08/26/17 08/26/17 08/26/17 Range/Units 13:57 13:57 13:57 WBC 2.4 L (4.0-10.0) x10^3/uL RBC 3.29 L (4.5-6.0) x10^6/uL Hgb 10.0 L D (14.0-18.0) g/dL Hct 30.1 L (40.0-52.0) % MCV 91.5 (78.0-93.0) fL MCH 30.4 (26.0-32.0) pg MCHC 33.2 (32.0-36.0) g/dL RDW Coeff of Derian 16.3 H (10.0-15.0) % Plt Count 89 L (130-400) x10^3/uL Neut % (Auto) 72.2 (50.0-80.0) % Lymph % (Auto) 8.7 L (25.0-50.0) % [place] % (Auto) 16.2 H (2.0-11.0) % Eos % (Auto) 2.5 (0.0-4.0) % Baso % (Auto) 0.4 (0.2-1.2) % Add Manual Diff Neutrophils % (Manual) (50-80) % Lymphocytes % (Manual) (25-50) % Monocytes % (Manual) (2-11) % Myelocytes % (0) % Blast Cells % (0) % Hypersegmented Neuts Platelet Estimate Hypochromasia D-Dimer, Quantitative 2.39 H (<=0.58) mg/LFEU Sodium 139 (136-145) mmol/L Potassium 3.9 (3.5-5.1) mmol/L Chloride 102 (98-107) mmol/L Carbon Dioxide 31 (21-32) mmol/L Anion Gap 9.9 L (10-20) mmol/L BUN 15 (7-18) mg/dL Creatinine 0.9 (0.70-1.30) mg/dL Est Cr Clr Drug Dosing TNP Estimated GFR (MDRD) > 60 Glucose 136 H (74-106) mg/dL Lactic Acid (0.4-2.0) mmol/L Calcium 8.3 L (8.5-10.1) mg/dL Corrected Calcium 8.78 (8.5-10.1) mg/dL Total Bilirubin 2.8 H (0.2-1.0) mg/dL AST 31 (15-37) U/L ALT 12 L (16-63) U/L Alkaline Phosphatase 80 (46-116) U/L Troponin I < 0.017 (<=0.056) ng/mL NT-Pro-B Natriuret Pep 346 (<=450) pg/mL Total Protein 5.9 L (6.4-8.2) g/dL Albumin 3.4 (3.4-5.0) g/dL Globulin 2.5 Albumin/Globulin Ratio 1.36 Amylase 25 (25-115) U/L Lipase 68 L (73-393) U/L 08/26/17 08/27/17 08/27/17 Range/Units 13:57 07:40 07:40 WBC 4.3 (4.0-10.0) x10^3/uL RBC 3.15 L (4.5-6.0) x10^6/uL Hgb 9.6 L (14.0-18.0) g/dL Hct 28.8 L (40.0-52.0) % MCV 91.4 (78.0-93.0) fL MCH 30.5 (26.0-32.0) pg MCHC 33.3 (32.0-36.0) g/dL RDW Coeff of Derian 16.0 H (10.0-15.0) % Plt Count 116 L (130-400) x10^3/uL Neut % (Auto) (50.0-80.0) % Lymph % (Auto) (25.0-50.0) % [place] % (Auto) (2.0-11.0) % Eos % (Auto) (0.0-4.0) % Baso % (Auto) (0.2-1.2) % Add Manual Diff Yes Neutrophils % (Manual) 90 H (50-80) % Lymphocytes % (Manual) 6 L (25-50) % Monocytes % (Manual) 2 (2-11) % Myelocytes % 1 H (0) % Blast Cells % 1 H (0) % Hypersegmented Neuts Moderate H Platelet Estimate Decreased L Hypochromasia 2+ moderate H D-Dimer, Quantitative (<=0.58) mg/LFEU Sodium 139 (136-145) mmol/L Potassium 4.2 (3.5-5.1) mmol/L Chloride 104 (98-107) mmol/L Carbon Dioxide 27 (21-32) mmol/L Anion Gap 12.2 (10-20) mmol/L BUN 18 (7-18) mg/dL Creatinine 0.9 (0.70-1.30) mg/dL Est Cr Clr Drug Dosing 77.84 Estimated GFR (MDRD) > 60 Glucose 134 H (74-106) mg/dL Lactic Acid 1.6 (0.4-2.0) mmol/L Calcium 8.4 L (8.5-10.1) mg/dL Corrected Calcium 8.96 (8.5-10.1) mg/dL Total Bilirubin 1.4 H (0.2-1.0) mg/dL AST 31 (15-37) U/L ALT 12 L (16-63) U/L Alkaline Phosphatase 71 (46-116) U/L Troponin I (<=0.056) ng/mL NT-Pro-B Natriuret Pep (<=450) pg/mL Total Protein 5.8 L (6.4-8.2) g/dL Albumin 3.3 L (3.4-5.0) g/dL Globulin 2.5 Albumin/Globulin Ratio 1.32 Amylase (25-115) U/L Lipase (73-393) U/L Med Orders - Current: Current Medications Aspirin (Halfprin) 81 mg PO DAILY [facility] Last Admin: 08/27/17 08:23 Dose: 81 mg Finasteride (Proscar) 5 mg PO DAILY [facility] Last Admin: 08/27/17 08:24 Dose: 5 mg Fluticasone Propionate (Flonase) 0 gm NASBOTH BID [facility] Last Admin: 08/27/17 08:25 Dose: 1 spray Furosemide (Lasix) 40 mg PO DAILY [facility] Last Admin: 08/27/17 08:23 Dose: 40 mg Piperacillin Sod/Tazobactam (Sod 3.375 gm/ Sodium Chloride) 100 mls @ 25 mls/ hr IV Q8H [facility] Last Admin: 08/27/17 06:33 Dose: 25 mls/hr Mometasone Furoate (Asmanex 220 Mcg) 2 puff INH DAILY [facility] Last Admin: 08/27/17 08:24 Dose: 2 puff Omeprazole (Omeprazole) 20 mg PO ACBRK [facility] Last Admin: 08/27/17 06:33 Dose: 20 mg Prednisone (Prednisone) 40 mg PO WITHBREAKFAST [facility] Last Admin: 08/27/17 08:24 Dose: 40 mg Ropinirole HCl (Requip) 0.25 mg PO BEDTIME [facility] Last Admin: 08/26/17 21:06 Dose: 0.25 mg Sodium Chloride (Saline Flush) 10 ml FLUSH ASDIRECTED PRN PRN Reason: Keep Vein Open Discontinued Medications Sodium Chloride (Normal Saline) 1,000 mls @ 150 mls/hr IV ASDIRECTED [facility] Last Admin: 08/26/17 14:38 Dose: 150 mls/hr Metronidazole 500 mg/ Premix 100 mls @ 100 mls/hr IV ONETIME ONE Stop: 08/26/17 16:49 Last Admin: 08/26/17 16:53 Dose: 100 mls/hr Piperacillin Sod/Tazobactam (Sod 3.375 gm/ Sodium Chloride) 100 mls @ 200 mls/ hr IV ONETIME ONE Stop: 08/26/17 16:19 Last Admin: 08/26/17 16:13 Dose: 200 mls/hr Iopamidol (Isovue-300 (61%)) 100 ml IVPUSH ONETIME ONE Stop: 08/26/17 15:08 Last Admin: 08/26/17 15:08 Dose: 100 ml Ondansetron HCl (Zofran) 4 mg IV ONETIME ONE Stop: 08/26/17 13:51 Last Admin: 08/26/17 14:39 Dose: 4 mg Prednisone (Prednisone) 40 mg PO NOW STA Stop: 08/26/17 16:09 Last Admin: 08/26/17 17:19 Dose: 40 mg - Exam General: Alert, Oriented Lungs: Clear to Auscultation Cardiovascular: Regular Rate, Regular Rhythm GI/Abdominal Exam: Normal Bowel Sounds, Non-Tender, No Distention - Problem List & Annotations (1) Abdominal pain SNOMED Code(s): 56860908 Code(s): R10.9 - UNSPECIFIED ABDOMINAL PAIN Status: Acute Current Visit: Yes Qualifiers: Abdominal location: generalized Qualified Code(s): R10.84 - Generalized abdominal pain Annotation/Comment:: appears stable, etiology still not 100% clear; Formal Cat report pernding, will continue IV antibiotics for presumptive diverticulitis for now (2) Acute diarrhea SNOMED Code(s): 193374198 Code(s): R19.7 - DIARRHEA, UNSPECIFIED Status: Acute Current Visit: Yes Annotation/Comment:: No BM since coming in; will check for c difficile if it recurs (3) Autoimmune hemolytic anemia SNOMED Code(s): 149131477 Code(s): D59.1 - OTHER AUTOIMMUNE HEMOLYTIC ANEMIAS Status: Acute Current Visit: Yes Annotation/Comment:: hb has slipped a little, will check in AM, if decrease continues, will contact Don[facility] Enrique for firther guidance. (4) Dehydration SNOMED Code(s): 44858979 Code(s): E86.0 - DEHYDRATION Status: Acute Current Visit: Yes Annotation/Comment:: Pt able to take po but not really hungry. If this is diverticulitis, i suggstd trying to rest bowel with clear liquids. - Problem List Review Problem List Initiated/Reviewed/Updated: Yes - My Orders Last 24 Hours: My Active Orders 08/27/17 12:50 C DIFFICILE TOXIN BY PCR [MREF] Routine Isolation [COMM] Routine 08/27/17 Dinner Clear Liquid Diet [DIET] 08/28/17 05:11 CBC WITH MANUAL DIFF [HEME] Routine - Plan Plan:: #1 Diverticulitis - Confirmed by CT scan. Patient has longstanding history of diverticulosis. No other focal pathology on CT scan. - Concern for possible retroperitoneal air. [facility] felt that this was not significant nor concerning. Agreed with patient's oncologist (see below) that it is acceptable for him to stay in [place] as they would plan to medically manage him in [place] as well. - The patient and his also prefer to stay in [place] rather than transferring to [place] if possible. - WBC low. - Patient does not meet any other sepsis criteria. In light of recent issues with fluid overload, will hold off on additional continuous IV fluids above what was given in the ER and bolus IV fluids as needed. - Blood cultures are pending. - Will continue zosyn q6 hours. This should be adequate coverage for relevant bacteria so will not also continue flagyl. - Recheck labs in the am. 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 - Has been discussed with oncology who did not feel the patient required transfer to [place] and would be appropriate to remain in [place]. - Advised restarting prednisone at 40 mg daily. - Will recheck labs daily. #4 Pleural Effusions - Recent Echo without significant abnormalities. - Patient symptoms much better on lasix. - Will continue 40 mg daily. #5 RLS #6 GERD #7 Chronic Sinusitis #8 BPH - Continue home medications. [facility] he will require at least 2 nights in the hospital. As above, his case has been reviewed with oncology and general surgery and neither team felt it was necessary for him to transfer to [place]. Patient and in agreement with admission locally as well but ok with transfer if need be. He wishes to be full code. No pharmacologic VTE prophylaxis in light of his hematologic abnormalities - will do SCD's.
[2017-08-27] MEDS: rOPINIRole 0.5 MG Tab PO SCH (20:38)
[2017-08-28] MEDS: Omeprazole 20 MG Cap.CR PO SCH (07:16)
[2017-08-28] MEDS: Piperacillin/Tazobactam 3.375 GM in Sodium Chloride 0.9% 100 ML IV SCH (07:17)
[2017-08-28] MEDS: Finasteride 5 MG Tab PO SCH (07:59)
[2017-08-28] MEDS: Aspirin 81 MG Tab.EC PO SCH (07:59)
[2017-08-28] MEDS: predniSONE 20 MG Tab PO SCH (07:59)
[2017-08-28] MEDS: Furosemide 40 MG Tab PO SCH (07:59)
[2017-08-28] MEDS: Mometasone Furoate Powder 220 MCG/Puff 14 Dose Inhaler INH SCH (08:00)
[2017-08-28] MEDS: Fluticasone Propionate Nasal Spray 16 GM Bottle NASBOTH SCH ×2 (08:00→20:41)
--- NOTE | 2017-08-28 12:05 | PCM.PN ---
- General Info Date of Service: 08/28/17 Admission Dx/Problem (Free Text): 1. Diverticulitis: pt states his abdomen feels fine,he is very hungry; he has not had a BM yet but states he did not eat for 4-5 days before coming to hospital. - Patient Data Vitals - Most Recent: Last Vital Signs Temp 97.8 F 08/28/17 10:00 Pulse 67 08/28/17 10:00 Resp 18 08/28/17 10:00 BP 122/55 L 08/28/17 10:00 Pulse Ox 90 L 08/28/17 10:00 Weight - Most Recent: 240 lb 5 oz I&O - Last 24 Hours: Intake & Output 08/27/17 08/28/17 08/28/17 22:59 06:59 14:59 Intake Total 625 526 Output Total 200 1000 Balance 425 -474 Lab Results Last 24 Hours: Laboratory Results - last 24 hr 08/28/17 Range/Units 08:28 WBC 2.7 L (4.0-10.0) x10^3/uL RBC 2.72 L (4.5-6.0) x10^6/uL Hgb 8.3 L (14.0-18.0) g/dL Hct 25.6 L (40.0-52.0) % MCV 94.1 H (78.0-93.0) fL MCH 30.5 (26.0-32.0) pg MCHC 32.4 (32.0-36.0) g/dL RDW Coeff of Derian 16.1 H (10.0-15.0) % Plt Count 103 L (130-400) x10^3/uL Neutrophils % (Manual) 86 H (50-80) % Band Neutrophils % 2 (0-6) % Lymphocytes % (Manual) 3 L (25-50) % Monocytes % (Manual) 8 (2-11) % Blast Cells % 1 H (0) % Hypersegmented Neuts Moderate H Platelet Estimate Decreased L Hypochromasia 3+ marked H Macrocytosis 1+ slight H Ovalocytes 1+ slight H Espinoza Results Last 24 Hours: Microbiology 08/26/17 14:06 Aerobic Blood Culture - Preliminary Blood - Venous - Lab Draw NO GROWTH AFTER 1 DAY Anaerobic Blood Culture - Preliminary NO GROWTH AFTER 1 DAY 08/26/17 13:57 Aerobic Blood Culture - Preliminary Blood - Venous NO GROWTH AFTER 1 DAY Anaerobic Blood Culture - Preliminary NO GROWTH AFTER 1 DAY Med Orders - Current: Current Medications Aspirin (Halfprin) 81 mg PO DAILY [facility] Last Admin: 08/28/17 07:59 Dose: 81 mg Ciprofloxacin (Ciprofloxacin Hcl) 500 mg PO BID [facility] Finasteride (Proscar) 5 mg PO DAILY [facility] Last Admin: 08/28/17 07:59 Dose: 5 mg Fluticasone Propionate (Flonase) 0 gm NASBOTH BID [facility] Last Admin: 08/28/17 08:00 Dose: 1 spray Furosemide (Lasix) 40 mg PO DAILY [facility] Last Admin: 08/28/17 07:59 Dose: 40 mg Metronidazole (Flagyl) 500 mg PO Q8H [facility] Mometasone Furoate (Asmanex 220 Mcg) 2 puff INH DAILY [facility] Last Admin: 08/28/17 08:00 Dose: 2 puff Omeprazole (Omeprazole) 20 mg PO ACBRK [facility] Last Admin: 08/28/17 07:16 Dose: 20 mg Prednisone (Prednisone) 40 mg PO WITHBREAKFAST [facility] Last Admin: 08/28/17 07:59 Dose: 40 mg Ropinirole HCl (Requip) 0.25 mg PO BEDTIME [facility] Last Admin: 08/27/17 20:38 Dose: 0.25 mg Sodium Chloride (Saline Flush) 10 ml FLUSH ASDIRECTED PRN PRN Reason: Keep Vein Open Discontinued Medications Sodium Chloride (Normal Saline) 1,000 mls @ 150 mls/hr IV ASDIRECTED [facility] Last Admin: 08/26/17 14:38 Dose: 150 mls/hr Metronidazole 500 mg/ Premix 100 mls @ 100 mls/hr IV ONETIME ONE Stop: 08/26/17 16:49 Last Admin: 08/26/17 16:53 Dose: 100 mls/hr Piperacillin Sod/Tazobactam (Sod 3.375 gm/ Sodium Chloride) 100 mls @ 200 mls/ hr IV ONETIME ONE Stop: 08/26/17 16:19 Last Admin: 08/26/17 16:13 Dose: 200 mls/hr Piperacillin Sod/Tazobactam (Sod 3.375 gm/ Sodium Chloride) 100 mls @ 25 mls/ hr IV Q8H [facility] Last Admin: 07/01/18 07:17 Dose: 25 mls/hr Iopamidol (Isovue-300 (61%)) 100 ml IVPUSH ONETIME ONE Stop: 08/26/17 15:08 Last Admin: 08/26/17 15:08 Dose: 100 ml Ondansetron HCl (Zofran) 4 mg IV ONETIME ONE Stop: 08/26/17 13:51 Last Admin: 08/26/17 14:39 Dose: 4 mg Prednisone (Prednisone) 40 mg PO NOW STA Stop: 08/26/17 16:09 Last Admin: 08/26/17 17:19 Dose: 40 mg - Exam General: Alert, Oriented Lungs: Clear to Auscultation Cardiovascular: Regular Rate, Regular Rhythm GI/Abdominal Exam: Normal Bowel Sounds, Soft, Non-Tender, No Distention - Problem List & Annotations (1) Abdominal pain SNOMED Code(s): 54609206 Code(s): R10.9 - UNSPECIFIED ABDOMINAL PAIN Status: Acute Current Visit: Yes Qualifiers: Abdominal location: generalized Qualified Code(s): R10.84 - Generalized abdominal pain Annotation/Comment:: appears stable, etiology still not 100% clear; Formal Cat report pernding, will continue IV antibiotics for presumptive diverticulitis for now (2) Acute diarrhea SNOMED Code(s): 187653348 Code(s): R19.7 - DIARRHEA, UNSPECIFIED Status: Acute Current Visit: Yes Annotation/Comment:: No BM since coming in; will check for c difficile if it recurs (3) Autoimmune hemolytic anemia SNOMED Code(s): 205055389 Code(s): D59.1 - OTHER AUTOIMMUNE HEMOLYTIC ANEMIAS Status: Acute Current Visit: Yes (4) Dehydration SNOMED Code(s): 12600225 Code(s): E86.0 - DEHYDRATION Status: Acute Current Visit: Yes - Problem List Review Problem List Initiated/Reviewed/Updated: Yes - My Orders Last 24 Hours: My Active Orders 08/27/17 12:50 C DIFFICILE TOXIN BY PCR [MREF] Routine Isolation [COMM] Routine 08/27/17 13:11 Communication Order [RC] 08/28/17 11:43 RETICULOCYTE COUNT [REF] Urgent 08/28/17 11:58 HAPTOGLOBIN [REF] Routine 08/28/17 12:00 metroNIDAZOLE [Flagyl] 500 mg PO Q8H 08/28/17 20:00 Ciprofloxacin [Ciprofloxacin HCl] 500 mg PO BID 08/28/17 Lunch Low Fiber Diet [DIET] - Plan Plan:: 1. Diverticulitis: pt has no abd complaints, has been afebrile and exam is benign,Plan: dc I v zosyn, start po flagyl and cipro advance diet, 2. Anemia; check retic count: consult with oncology.
[2017-08-28] MEDS: metroNIDAZOLE 500 MG Tab PO SCH ×2 (12:19→20:40)
--- NOTE | 2017-08-28 15:51 | PCM.PN ---
- General Info Date of Service: 08/28/17 Admission Dx/Problem (Free Text): Pt feels hungry, has not had any BM, does n Subjective Update: pt has no abdominal pain, is very hungary, has had no bm's - Patient Data Vitals - Most Recent: Last Vital Signs Temp 98.4 F 08/28/17 13:52 Pulse 72 08/28/17 13:52 Resp 16 08/28/17 13:52 BP 122/55 L 08/28/17 10:00 Pulse Ox 94 L 08/28/17 13:52 Weight - Most Recent: 240 lb 5 oz I&O - Last 24 Hours: Intake & Output 08/28/17 08/28/17 08/28/17 06:59 14:59 22:59 Intake Total 526 Output Total 1000 Balance -474 Lab Results Last 24 Hours: Laboratory Results - last 24 hr 08/28/17 Range/Units 08:28 WBC 2.7 L (4.0-10.0) x10^3/uL RBC 2.72 L (4.5-6.0) x10^6/uL Hgb 8.3 L (14.0-18.0) g/dL Hct 25.6 L (40.0-52.0) % MCV 94.1 H (78.0-93.0) fL MCH 30.5 (26.0-32.0) pg MCHC 32.4 (32.0-36.0) g/dL RDW Coeff of Derian 16.1 H (10.0-15.0) % Plt Count 103 L (130-400) x10^3/uL Neutrophils % (Manual) 86 H (50-80) % Band Neutrophils % 2 (0-6) % Lymphocytes % (Manual) 3 L (25-50) % Monocytes % (Manual) 8 (2-11) % Blast Cells % 1 H (0) % Hypersegmented Neuts Moderate H Platelet Estimate Decreased L Hypochromasia 3+ marked H Macrocytosis 1+ slight H Ovalocytes 1+ slight H Espinoza Results Last 24 Hours: Microbiology 08/26/17 14:06 Aerobic Blood Culture - Preliminary Blood - Venous - Lab Draw NO GROWTH AFTER 2 DAYS Anaerobic Blood Culture - Preliminary NO GROWTH AFTER 2 DAYS 08/26/17 13:57 Aerobic Blood Culture - Preliminary Blood - Venous NO GROWTH AFTER 2 DAYS Anaerobic Blood Culture - Preliminary NO GROWTH AFTER 2 DAYS Med Orders - Current: Current Medications Aspirin (Halfprin) 81 mg PO DAILY [facility] Last Admin: 08/28/17 07:59 Dose: 81 mg Ciprofloxacin (Ciprofloxacin Hcl) 500 mg PO BID [facility] Finasteride (Proscar) 5 mg PO DAILY [facility] Last Admin: 08/28/17 07:59 Dose: 5 mg Fluticasone Propionate (Flonase) 0 gm NASBOTH BID [facility] Last Admin: 08/28/17 08:00 Dose: 1 spray Furosemide (Lasix) 40 mg PO DAILY [facility] Last Admin: 08/28/17 07:59 Dose: 40 mg Metronidazole (Flagyl) 500 mg PO Q8H [facility] Last Admin: 08/28/17 12:19 Dose: 500 mg Mometasone Furoate (Asmanex 220 Mcg) 2 puff INH DAILY [facility] Last Admin: 08/28/17 08:00 Dose: 2 puff Omeprazole (Omeprazole) 20 mg PO ACBRK [facility] Last Admin: 08/28/17 07:16 Dose: 20 mg Prednisone (Prednisone) 80 mg PO WITHBREAKFAST [facility] Ropinirole HCl (Requip) 0.25 mg PO BEDTIME [facility] Last Admin: 08/27/17 20:38 Dose: 0.25 mg Sodium Chloride (Saline Flush) 10 ml FLUSH ASDIRECTED PRN PRN Reason: Keep Vein Open Discontinued Medications Sodium Chloride (Normal Saline) 1,000 mls @ 150 mls/hr IV ASDIRECTED [facility] Last Admin: 08/26/17 14:38 Dose: 150 mls/hr Metronidazole 500 mg/ Premix 100 mls @ 100 mls/hr IV ONETIME ONE Stop: 08/26/17 16:49 Last Admin: 08/26/17 16:53 Dose: 100 mls/hr Piperacillin Sod/Tazobactam (Sod 3.375 gm/ Sodium Chloride) 100 mls @ 200 mls/ hr IV ONETIME ONE Stop: 08/26/17 16:19 Last Admin: 08/26/17 16:13 Dose: 200 mls/hr Piperacillin Sod/Tazobactam (Sod 3.375 gm/ Sodium Chloride) 100 mls @ 25 mls/ hr IV Q8H [facility] Last Admin: 08/28/17 07:17 Dose: 25 mls/hr Iopamidol (Isovue-300 (61%)) 100 ml IVPUSH ONETIME ONE Stop: 08/26/17 15:08 Last Admin: 08/26/17 15:08 Dose: 100 ml Ondansetron HCl (Zofran) 4 mg IV ONETIME ONE Stop: 08/26/17 13:51 Last Admin: 08/26/17 14:39 Dose: 4 mg Prednisone (Prednisone) 40 mg PO NOW STA Stop: 08/26/17 16:09 Last Admin: 08/26/17 17:19 Dose: 40 mg Prednisone (Prednisone) 40 mg PO WITHBREAKFAST [facility] Last Admin: 08/28/17 07:59 Dose: 40 mg - Exam General: Alert Lungs: Clear to Auscultation Cardiovascular: Regular Rate, Regular Rhythm GI/Abdominal Exam: Normal Bowel Sounds, Non-Tender, No Distention, No Abnormal Bruit - Problem List & Annotations (1) Abdominal pain SNOMED Code(s): 80506293 Code(s): R10.9 - UNSPECIFIED ABDOMINAL PAIN Status: Acute Current Visit: Yes Qualifiers: Abdominal location: generalized Qualified Code(s): R10.84 - Generalized abdominal pain Annotation/Comment:: resolved; switch to po antibiotics (2) Acute diarrhea SNOMED Code(s): 417673407 Code(s): R19.7 - DIARRHEA, UNSPECIFIED Status: Acute Current Visit: Yes Annotation/Comment:: resolved (3) Autoimmune hemolytic anemia SNOMED Code(s): 327032918 Code(s): D59.1 - OTHER AUTOIMMUNE HEMOLYTIC ANEMIAS Status: Acute Current Visit: Yes Annotation/Comment:: pt has dropped another gram. Spoke with Dr Payan who suggested that if pt is not bleeding, he needs to oliver on 1mg/ kg prednsione- advises 80 mg daily; soombs, peripheral smear. Haptoglobin and retic count already requested. She suggested he needs to stay in hoptial to monitor response to higher dose steroid. (4) Dehydration SNOMED Code(s): 36157460 Code(s): E86.0 - DEHYDRATION Status: Acute Current Visit: Yes Annotation/Comment:: resolved - Problem List Review Problem List Initiated/Reviewed/Updated: Yes - My Orders Last 24 Hours: My Active Orders 08/28/17 08:28 HAPTOGLOBIN [REF] Routine RETICULOCYTE COUNT [REF] Urgent 08/28/17 12:00 metroNIDAZOLE [Flagyl] 500 mg PO Q8H 08/28/17 15:37 BILIRUBIN DIRECT [CHEM] Routine BILIRUBIN TOTAL [CHEM] Routine 08/28/17 15:38 BLOOD SMEARS TO PATHOLOGIST [REF] Routine 08/28/17 20:00 Ciprofloxacin [Ciprofloxacin HCl] 500 mg PO BID 08/28/17 Lunch Low Fiber Diet [DIET] 08/29/17 05:11 CBC WITH MANUAL DIFF [HEME] Routine 08/29/17 08:00 predniSONE 80 mg PO WITHBREAKFAST - Plan Plan:: 1. Diverticulitis: pt has no abd complaints, has been afebrile and exam is benign,Plan: dc I v zosyn, start po flagyl and cipro advance diet, 2. Anemia; check retic count: consult with oncology.
[2017-08-28] MEDS: rOPINIRole 0.5 MG Tab PO SCH (20:40)
[2017-08-28] MEDS: Ciprofloxacin 500 MG Tab PO SCH (20:40)
[2017-08-29] MEDS: metroNIDAZOLE 500 MG Tab PO SCH ×3 (05:16→20:49)
[2017-08-29] MEDS: Omeprazole 20 MG Cap.CR PO SCH (06:51)
[2017-08-29] MEDS: Ciprofloxacin 500 MG Tab PO SCH ×2 (09:07→20:49)
[2017-08-29] MEDS: Aspirin 81 MG Tab.EC PO SCH (09:08)
[2017-08-29] MEDS: Finasteride 5 MG Tab PO SCH (09:08)
[2017-08-29] MEDS: Furosemide 40 MG Tab PO SCH (09:09)
[2017-08-29] MEDS: Mometasone Furoate Powder 220 MCG/Puff 14 Dose Inhaler INH SCH (09:09)
[2017-08-29] MEDS: Fluticasone Propionate Nasal Spray 16 GM Bottle NASBOTH SCH ×2 (09:09→20:51)
[2017-08-29] MEDS: predniSONE 20 MG Tab PO SCH (09:10)
--- NOTE | 2017-08-29 09:34 | PCM.PN ---
- General Info Date of Service: 08/29/17 Subjective Update: Feeling well this morning. Has some lower abdominal pain when he coughs but otherwise none. Has not had any diarrhea since admission; in fact, no BM since admission but he is passing gas. His appetite has been good; no nausea or vomiting. No fever or chills. Has been out of bed without much issue. Denies any other concerns today. - Review of Systems General: Reports: No Symptoms HEENT: Reports: No Symptoms Pulmonary: Reports: No Symptoms Cardiovascular: Reports: No Symptoms Gastrointestinal: Reports: No Symptoms Genitourinary: Reports: No Symptoms Musculoskeletal: Reports: No Symptoms Skin: Reports: No Symptoms - Patient Data Vitals - Most Recent: Last Vital Signs Temp 36.6 C 08/29/17 06:00 Pulse 75 08/29/17 06:00 Resp 18 08/29/17 06:00 BP 135/69 08/29/17 06:00 Pulse Ox 94 L 08/29/17 06:00 Weight - Most Recent: 109.004 kg I&O - Last 24 Hours: Intake & Output 08/28/17 08/29/17 08/29/17 22:59 06:59 14:59 Intake Total 200 450 510 Output Total 1550 500 Balance -1350 -50 510 Lab Results Last 24 Hours: Laboratory Results - last 24 hr 08/28/17 08/28/17 08/28/17 Range/Units 08:28 17:02 17:04 WBC (4.0-10.0) x10^3/uL RBC (4.5-6.0) x10^6/uL Hgb (14.0-18.0) g/dL Hct (40.0-52.0) % MCV (78.0-93.0) fL MCH (26.0-32.0) pg MCHC (32.0-36.0) g/dL RDW Coeff of Derian (10.0-15.0) % Plt Count (130-400) x10^3/uL Neutrophils % (Manual) 86 H (50-80) % Band Neutrophils % 2 (0-6) % Lymphocytes % (Manual) 3 L (25-50) % Monocytes % (Manual) 8 (2-11) % Eosinophils % (Manual) (0-4) % Blast Cells % 1 H (0) % Hypersegmented Neuts Moderate H Toxic Granulation Platelet Estimate Decreased L Hypochromasia 3+ marked H Macrocytosis 1+ slight H Ovalocytes 1+ slight H Acanthocytes (Spur) Rouleaux Total Bilirubin 1.5 H (0.2-1.0) mg/dL Direct Bilirubin 0.26 H (0.00-0.20) mg/dL Direct AHG Gel w DEBRA Negative 08/29/17 Range/Units 06:51 WBC 2.6 L (4.0-10.0) x10^3/uL RBC 2.78 L (4.5-6.0) x10^6/uL Hgb 8.4 L (14.0-18.0) g/dL Hct 26.2 L (40.0-52.0) % MCV 94.2 H (78.0-93.0) fL MCH 30.2 (26.0-32.0) pg MCHC 32.1 (32.0-36.0) g/dL RDW Coeff of Derian 16.0 H (10.0-15.0) % Plt Count 108 L (130-400) x10^3/uL Neutrophils % (Manual) 74 (50-80) % Band Neutrophils % 2 (0-6) % Lymphocytes % (Manual) 8 L (25-50) % Monocytes % (Manual) 15 H (2-11) % Eosinophils % (Manual) 1 (0-4) % Blast Cells % (0) % Hypersegmented Neuts Moderate H Toxic Granulation 1+ slight H Platelet Estimate Decreased L Hypochromasia Macrocytosis 1+ slight H Ovalocytes 4+ H Acanthocytes (Spur) 2+ moderate H Rouleaux 1+ slight H Total Bilirubin (0.2-1.0) mg/dL Direct Bilirubin (0.00-0.20) mg/dL Direct AHG Gel w DEBRA Espinoza Results Last 24 Hours: Microbiology 08/26/17 14:06 Aerobic Blood Culture - Preliminary Blood - Venous - Lab Draw NO GROWTH AFTER 2 DAYS Anaerobic Blood Culture - Preliminary NO GROWTH AFTER 2 DAYS 08/26/17 13:57 Aerobic Blood Culture - Preliminary Blood - Venous NO GROWTH AFTER 2 DAYS Anaerobic Blood Culture - Preliminary NO GROWTH AFTER 2 DAYS Med Orders - Current: Current Medications Aspirin (Halfprin) 81 mg PO DAILY [facility] Last Admin: 08/29/17 09:08 Dose: 81 mg Ciprofloxacin (Ciprofloxacin Hcl) 500 mg PO BID [facility] Last Admin: 08/29/17 09:07 Dose: 500 mg Finasteride (Proscar) 5 mg PO DAILY [facility] Last Admin: 08/29/17 09:08 Dose: 5 mg Fluticasone Propionate (Flonase) 0 gm NASBOTH BID [facility] Last Admin: 08/29/17 09:09 Dose: 1 spray Furosemide (Lasix) 40 mg PO DAILY [facility] Last Admin: 08/29/17 09:09 Dose: 40 mg Metronidazole (Flagyl) 500 mg PO Q8H [facility] Last Admin: 08/29/17 05:16 Dose: 500 mg Mometasone Furoate (Asmanex 220 Mcg) 2 puff INH DAILY [facility] Last Admin: 08/29/17 09:09 Dose: 2 puff Omeprazole (Omeprazole) 20 mg PO ACBRK [facility] Last Admin: 08/29/17 06:51 Dose: 20 mg Prednisone (Prednisone) 80 mg PO WITHBREAKFAST [facility] Last Admin: 08/29/17 09:10 Dose: 80 mg Ropinirole HCl (Requip) 0.25 mg PO BEDTIME [facility] Last Admin: 08/28/17 20:40 Dose: 0.25 mg Sodium Chloride (Saline Flush) 10 ml FLUSH ASDIRECTED PRN PRN Reason: Keep Vein Open Discontinued Medications Sodium Chloride (Normal Saline) 1,000 mls @ 150 mls/hr IV ASDIRECTED [facility] Last Admin: 08/26/17 14:38 Dose: 150 mls/hr Metronidazole 500 mg/ Premix 100 mls @ 100 mls/hr IV ONETIME ONE Stop: 08/26/17 16:49 Last Admin: 08/26/17 16:53 Dose: 100 mls/hr Piperacillin Sod/Tazobactam (Sod 3.375 gm/ Sodium Chloride) 100 mls @ 200 mls/ hr IV ONETIME ONE Stop: 08/26/17 16:19 Last Admin: 08/26/17 16:13 Dose: 200 mls/hr Piperacillin Sod/Tazobactam (Sod 3.375 gm/ Sodium Chloride) 100 mls @ 25 mls/ hr IV Q8H [facility] Last Admin: 08/28/17 07:17 Dose: 25 mls/hr Iopamidol (Isovue-300 (61%)) 100 ml IVPUSH ONETIME ONE Stop: 08/26/17 15:08 Last Admin: 08/26/17 15:08 Dose: 100 ml Ondansetron HCl (Zofran) 4 mg IV ONETIME ONE Stop: 08/26/17 13:51 Last Admin: 08/26/17 14:39 Dose: 4 mg Prednisone (Prednisone) 40 mg PO NOW ST[facility] Stop: 08/26/17 16:09 Last Admin: 08/26/17 17:19 Dose: 40 mg Prednisone (Prednisone) 40 mg PO WITHBREAKFAST [facility] Last Admin: 08/28/17 07:59 Dose: 40 mg - Exam General: Alert, Cooperative, No Acute Distress HEENT: Mucous Membr. Moist/[place] Neck: Supple, Trachea Midline, No Thyromegaly. No: Lymphadenopathy Lungs: Clear to Auscultation, Normal Respiratory Effort Cardiovascular: Regular Rate, Regular Rhythm, No Murmurs GI/Abdominal Exam: Normal Bowel Sounds, Soft, Non-Tender, No Organomegaly, No Distention, No Mass Extremities: Normal Inspection, Non-Tender, No Pedal Edema, Normal Capillary Refill Peripheral Pulses: 2+: Radial (L), Radial (R) Skin: Warm, Dry, Intact - Problem List & Annotations (1) Autoimmune hemolytic anemia SNOMED Code(s): 529324442 Code(s): D59.1 - OTHER AUTOIMMUNE HEMOLYTIC ANEMIAS Status: Acute Current Visit: Yes (2) Diverticulitis SNOMED Code(s): 914408519 Code(s): K57.92 - DVTRCLI OF INTEST, PART UNSP, W/O PERF OR ABSCESS W/O BLEED Status: Acute Current Visit: Yes (3) Marginal zone lymphoma SNOMED Code(s): 849198241, 570246839 Code(s): C85.80 - OTH TYPES OF NON-HODGKIN LYMPHOMA, UNSPECIFIED SITE Status: Chronic Current Visit: Yes (4) Pleural effusion SNOMED Code(s): 46921503 Code(s): J90 - PLEURAL EFFUSION, NOT ELSEWHERE CLASSIFIED Status: Chronic Current Visit: No (5) Restless leg syndrome SNOMED Code(s): 80724840 Code(s): G25.81 - RESTLESS LEGS SYNDROME Status: Chronic Current Visit: Yes (6) GERD (gastroesophageal reflux disease) SNOMED Code(s): 891789743 Code(s): K21.9 - GASTRO-ESOPHAGEAL REFLUX DISEASE WITHOUT ESOPHAGITIS Status: Chronic Current Visit: Yes Qualifiers: Esophagitis presence: esophagitis presence not specified Qualified Code(s) : K21.9 - Gastro-esophageal reflux disease without esophagitis (7) Chronic sinusitis SNOMED Code(s): 46071094 Code(s): J32.9 - CHRONIC SINUSITIS, UNSPECIFIED Status: Chronic Current Visit: Yes Qualifiers: Sinusitis location: pansinusitis Qualified Code(s): J32.4 - Chronic pansinusitis (8) BPH (benign prostatic hyperplasia) SNOMED Code(s): 939039333 Code(s): N40.0 - BENIGN PROSTATIC HYPERPLASIA WITHOUT LOWER URINRY TRACT SYMP Status: Chronic Current Visit: Yes Qualifiers: Lower urinary tract symptom presence: symptoms absent Qualified Code(s): N40.0 - Benign prostatic hyperplasia without lower urinary tract symptoms - Problem List Review Problem List Initiated/Reviewed/Updated: Yes - My Orders Last 24 Hours: My Active Orders 08/30/17 05:11 CBC WITH AUTO DIFF [HEME] Routine - Assessment Assessment:: 77 yo male initially admitted with diverticulitis, now also with worsening of hemolytic anemia. Is doing better today overall. Feeling well. Hgb is stable today. - Plan Plan:: #1 Autoimmune Hemolytic Anemia - This is now what is keeping him admitted more than the diverticulitis. - Hgb is stable today at 8.4. - Just started the higher doses of prednisone yesterday. Will continue 80 mg/ day since this seems to be working well. - Will touch base with his oncologist to review next steps. - Given patient's severe anemia (Hgb of 3) with last episode of hemolytic anemia , would suggest staying 1 more night in the hospital to ensure hemoglobin remains stable. He is in agreement. #2 Diverticulitis - Confirmed by CT scan. Patient has longstanding history of diverticulosis. No other focal pathology on CT scan. - Symptoms nearly resolved. - He is tolerating his diet fine. - Although no BM since admission, is passing gas well and does not feel constipated. Will continue to monitor. - Continue cipro/flagyl to complete a 1 week course. #3 Marginal Zone Lymphoma, in remission - Not currently treated. #4 Pleural Effusions - Recent Echo without significant abnormalities. - Patient symptoms much better on lasix. - Will continue 40 mg daily. #5 RLS #6 GERD #7 Chronic Sinusitis #8 BPH - Continue home medications. Patient will remain on acute until tomorrow to ensure his hemoglobin truly remains stable. He is on oral antibiotics and oral prednisone. No changes today. He wishes to be full code. No pharmacologic VTE prophylaxis in light of his hematologic abnormalities - will do SCD's.
[2017-08-29] MEDS: rOPINIRole 0.5 MG Tab PO SCH (20:52)
[2017-08-30] MEDS: metroNIDAZOLE 500 MG Tab PO SCH (04:42)
[2017-08-30 05:38] VITALS: BP 138/61
[2017-08-30] MEDS ORDERED: Omeprazole 20 MG Cap.CR PO SCH (07:00)
[2017-08-30] MEDS: Ciprofloxacin 500 MG Tab PO SCH (08:34)
[2017-08-30] MEDS: Furosemide 40 MG Tab PO SCH (08:36)
[2017-08-30] MEDS: Finasteride 5 MG Tab PO SCH (08:36)
[2017-08-30] MEDS: predniSONE 20 MG Tab PO SCH (08:37)
[2017-08-30] MEDS: Aspirin 81 MG Tab.EC PO SCH (08:37)
[2017-08-30] MEDS: Fluticasone Propionate Nasal Spray 16 GM Bottle NASBOTH SCH (08:38)
[2017-08-30] MEDS: Mometasone Furoate Powder 220 MCG/Puff 14 Dose Inhaler INH SCH (08:38)
--- NOTE | 2017-08-30 08:41 | PCM.DCSUM1 ---
Discharge Summary - Hospital Course Brief History: Mr. Mejía is a 77 yo male who was admitted with diverticulitis after presenting to the ER with generalized weakness, abdominal pain, and diarrhea for the preceding 2-3 days. - Discharge Data Discharge Date: 08/30/17 Discharge Disposition: Home, Self-Care 01 Condition: Good - Discharge Diagnosis/Problem(s) (1) Autoimmune hemolytic anemia SNOMED Code(s): 980915146 ICD Code: D59.1 - OTHER AUTOIMMUNE HEMOLYTIC ANEMIAS Status: Acute Current Visit: Yes (2) Diverticulitis SNOMED Code(s): 634092147 ICD Code: K57.92 - DVTRCLI OF INTEST, PART UNSP, W/O PERF OR ABSCESS W/O BLEED Status: Acute Current Visit: Yes (3) Marginal zone lymphoma SNOMED Code(s): 740298181, 699170628 ICD Code: C85.80 - [facility] TYPES OF NON-HODGKIN LYMPHOMA, UNSPECIFIED SITE Status: Chronic Current Visit: Yes (4) Pleural effusion SNOMED Code(s): 19288904 ICD Code: J90 - PLEURAL EFFUSION, NOT ELSEWHERE CLASSIFIED Status: Chronic Current Visit: No (5) Restless leg syndrome SNOMED Code(s): 31861408 ICD Code: G25.81 - RESTLESS LEGS SYNDROME Status: Chronic Current Visit: Yes (6) GERD (gastroesophageal reflux disease) SNOMED Code(s): 224106864 ICD Code: K21.9 - GASTRO-ESOPHAGEAL REFLUX DISEASE WITHOUT ESOPHAGITIS Status: Chronic Current Visit: Yes Qualifiers: Esophagitis presence: esophagitis presence not specified Qualified Code(s) : K21.9 - Gastro-esophageal reflux disease without esophagitis (7) Chronic sinusitis SNOMED Code(s): 93270501 ICD Code: J32.9 - CHRONIC SINUSITIS, UNSPECIFIED Status: Chronic Current Visit: Yes Qualifiers: Sinusitis location: pansinusitis Qualified Code(s): J32.4 - Chronic pansinusitis (8) BPH (benign prostatic hyperplasia) SNOMED Code(s): 696962561 ICD Code: N40.0 - BENIGN PROSTATIC HYPERPLASIA WITHOUT LOWER URINRY TRACT SYMP Status: Chronic Current Visit: Yes Qualifiers: Lower urinary tract symptom presence: symptoms absent Qualified Code(s): N40.0 - Benign prostatic hyperplasia without lower urinary tract symptoms - Patient Summary/Data Operative Procedure(s) Performed: none Complications: drop in hemoglobin secondary to recurrent hemolytic anemia Consults: none Labs Pending at D/C: Gladys, retic count Recommended Follow-up Testing/Procedures: as per hematology Planned Operative Procedure(s) after DC: none Hospital Course: He was started on zosyn for his diverticulitis and quickly improved from that perspective. He never met sepsis criteria. He was transitioned to PO antibiotics without incident on hospital day #2. His hospitalization was complicated by a progressive decrease in his hemoglobin, felt to be secondary to recurrent autoimmune hemolytic anemia. His lowest hemoglobin was 8.3 and he never required transfusion. Hematology was consulted and recommended increasing his prednisone to 80 mg daily. His hemoglobin subsequently improved. His primary supervisor delivery department was consulted yesterday and recommended that he discharge home on 60 mg of prednisone with subsequent follow-ups to be arranged by his office. The patient had had some shortness of breath early last week but that improved with lasix prior to admission, which was continued during his hospital stay. His hospitalization was otherwise uncomplicated. On the day of discharge, he is feeling well and without any complaint. He is prepared for dismissal home. He will continue antibiotics for another 2 days to complete a 1 week course. - Patient Instructions Diet: Usual Diet as Tolerated Activity: As Tolerated - Discharge Plan Prescriptions/Med Rec: Ciprofloxacin HCl [Cipro] 500 mg PO BID #4 tablet metroNIDAZOLE [Flagyl] 500 mg PO Q8H #6 tablet predniSONE 60 mg PO WITHBREAKFAST #42 tablet Home Medications: Home Meds Acetaminophen [Tylenol] 650 mg PO Q8H PRN 03/06/17 [History] Albuterol [Ventolin HFA] 2 puff IH Q4H PRN 03/06/17 [History] Omeprazole 20 mg PO DAILY 03/06/17 [History] Aspirin [Halfprin] 81 mg PO DAILY 08/05/17 [History] Fluticasone Propionate [Flonase] 1 spray NASBOTH BID 08/05/17 [History] Fluticasone Propionate [Flovent HFA 110 MCG] 2 puff INH BID 08/05/17 [History] Dutasteride [Avodart] 0.5 mg PO DAILY 08/26/17 [History] Furosemide [Lasix] 40 mg PO DAILY 08/26/17 [History] Ciprofloxacin HCl [Cipro] 500 mg PO BID #4 tablet 08/30/17 [Rx] metroNIDAZOLE [Flagyl] 500 mg PO Q8H #6 tablet 08/30/17 [Rx] predniSONE 60 mg PO WITHBREAKFAST #42 tablet 08/30/17 [Rx] rOPINIRole [Requip] 0.25 mg PO BEDTIME tablet 08/30/17 [Rx] Forms: ED Department Discharge Referrals: Danelle Ryder MD [Primary Care Provider] - 09/08/17 2:00 pm (You have a follow up appt. with Dr. Justyna Ryder on September 08, 2017 at 2 PM---[facility]) - Discharge Summary/Plan Comment DC Time >30 min.: No - General Info Date of Service: 08/30/17 Subjective Update: Feeling well this morning. Still occasional lower abdominal pain with certain movements or coughing. No diarrhea. No BM since admission but is passing gas without any issues. No nausea or vomiting. No fever or chills. Has been up out of bed without any difficulty; no shortness of breath or chest pain. - Review of Systems General: Reports: No Symptoms HEENT: Reports: No Symptoms Pulmonary: Reports: No Symptoms Cardiovascular: Reports: No Symptoms Gastrointestinal: Reports: No Symptoms Genitourinary: Reports: No Symptoms Musculoskeletal: Reports: No Symptoms Skin: Reports: No Symptoms Neurological: Reports: No Symptoms - Patient Data Vitals - Most Recent: Last Vital Signs Temp 36.4 C 08/30/17 05:37 Pulse 64 08/30/17 05:37 Resp 18 08/30/17 05:37 BP 138/61 08/30/17 05:37 Pulse Ox 96 08/30/17 05:37 Weight - Most Recent: 109.004 kg I&O - Last 24 hours: Intake & Output 08/29/17 08/30/17 08/30/17 22:59 06:59 14:59 Intake Total 120 590 240 Output Total 200 700 Balance -80 -110 240 Lab Results - Last 24 hrs: Laboratory Results - last 24 hr 08/28/17 08/29/17 08/30/17 Range/Units 08:28 06:51 06:27 WBC 3.3 L (4.0-10.0) x10^3/uL RBC 2.90 L (4.5-6.0) x10^6/uL Hgb 8.7 L (14.0-18.0) g/dL Hct 26.8 L (40.0-52.0) % MCV 92.4 (78.0-93.0) fL MCH 30.0 (26.0-32.0) pg MCHC 32.5 (32.0-36.0) g/dL RDW Coeff of Derian 16.1 H (10.0-15.0) % Plt Count 118 L (130-400) x10^3/uL Add Manual Diff Yes Neutrophils % (Manual) 74 83 H (50-80) % Band Neutrophils % 2 3 (0-6) % Lymphocytes % (Manual) 8 L 13 L (25-50) % Monocytes % (Manual) 15 H 1 L (2-11) % Eosinophils % (Manual) 1 (0-4) % Hypersegmented Neuts Moderate H Toxic Granulation 1+ slight H Platelet Estimate Decreased L Decreased L Macrocytosis 1+ slight H 1+ slight H Ovalocytes 4+ H Acanthocytes (Spur) 2+ moderate H Rouleaux 1+ slight H Haptoglobin <10 L (44-215) mg/dL BONI Results - Last 24 hrs: Microbiology 08/26/17 14:06 Aerobic Blood Culture - Preliminary Blood - Venous - Lab Draw NO GROWTH AFTER 3 DAYS Anaerobic Blood Culture - Preliminary NO GROWTH AFTER 3 DAYS 08/26/17 13:57 Aerobic Blood Culture - Preliminary Blood - Venous NO GROWTH AFTER 3 DAYS Anaerobic Blood Culture - Preliminary NO GROWTH AFTER 3 DAYS Med Orders - Current: Current Medications Aspirin (Halfprin) 81 mg PO DAILY [facility] Last Admin: 08/29/17 09:08 Dose: 81 mg Ciprofloxacin (Ciprofloxacin Hcl) 500 mg PO BID [facility] Last Admin: 08/29/17 20:49 Dose: 500 mg Finasteride (Proscar) 5 mg PO DAILY [facility] Last Admin: 08/29/17 09:08 Dose: 5 mg Fluticasone Propionate (Flonase) 0 gm NASBOTH BID [facility] Last Admin: 08/29/17 20:51 Dose: Not Given Furosemide (Lasix) 40 mg PO DAILY [facility] Last Admin: 08/29/17 09:09 Dose: 40 mg Metronidazole (Flagyl) 500 mg PO Q8H [facility] Last Admin: 08/30/17 04:42 Dose: 500 mg Mometasone Furoate (Asmanex 220 Mcg) 2 puff INH DAILY [facility] Last Admin: 08/29/17 09:09 Dose: 2 puff Omeprazole (Omeprazole) 20 mg PO ACBREAKFAST [facility] Last Admin: 08/30/17 06:23 Dose: 20 mg Prednisone (Prednisone) 80 mg PO WITHBREAKFAST [facility] Last Admin: 08/29/17 09:10 Dose: 80 mg Ropinirole HCl (Requip) 0.25 mg PO BEDTIME [facility] Last Admin: 08/29/17 20:52 Dose: 0.25 mg Sodium Chloride (Saline Flush) 10 ml FLUSH ASDIRECTED PRN PRN Reason: Keep Vein Open Last Admin: 08/29/17 12:33 Dose: 10 ml Discontinued Medications Sodium Chloride (Normal Saline) 1,000 mls @ 150 mls/hr IV ASDIRECTED [facility] Last Admin: 08/26/17 14:38 Dose: 150 mls/hr Metronidazole 500 mg/ Premix 100 mls @ 100 mls/hr IV ONETIME ONE Stop: 08/26/17 16:49 Last Admin: 08/26/17 16:53 Dose: 100 mls/hr Piperacillin Sod/Tazobactam (Sod 3.375 gm/ Sodium Chloride) 100 mls @ 200 mls/ hr IV ONETIME ONE Stop: 08/26/17 16:19 Last Admin: 08/26/17 16:13 Dose: 200 mls/hr Piperacillin Sod/Tazobactam (Sod 3.375 gm/ Sodium Chloride) 100 mls @ 25 mls/ hr IV Q8H [facility] Last Admin: 08/28/17 07:17 Dose: 25 mls/hr Iopamidol (Isovue-300 (61%)) 100 ml IVPUSH ONETIME ONE Stop: 08/26/17 15:08 Last Admin: 08/26/17 15:08 Dose: 100 ml Omeprazole (Omeprazole) 20 mg PO ACBRK [facility] Last Admin: 08/29/17 06:51 Dose: 20 mg Ondansetron HCl (Zofran) 4 mg IV ONETIME ONE Stop: 08/26/17 13:51 Last Admin: 08/26/17 14:39 Dose: 4 mg Prednisone (Prednisone) 40 mg PO NOW STA Stop: 08/26/17 16:09 Last Admin: 08/26/17 17:19 Dose: 40 mg Prednisone (Prednisone) 40 mg PO WITHBREAKFAST [facility] Last Admin: 08/28/17 07:59 Dose: 40 mg - Exam General: Reports: Alert, Cooperative, No Acute Distress HEENT: Reports: Mucous Membr. Moist/[place] Neck: Reports: Supple, Trachea Midline, No Thyromegaly. Denies: Lymphadenopathy Lungs: Reports: Clear to Auscultation, Normal Respiratory Effort Cardiovascular: Reports: Regular Rate, Regular Rhythm, No Murmurs GI/Abdominal Exam: Normal Bowel Sounds, Soft, Non-Tender, No Organomegaly, No Distention, No Mass Extremities: Normal Inspection, Non-Tender, No Pedal Edema, Normal Capillary Refill Skin: Reports: Warm, Dry, Intact
== END 2017-08-30 09:35 | disposition home or self-care (01) | DRG 392 ==
LOC: VM.ED 13:29 → VM.MS 16:15 → UNDOADMIN 17:33 → VM.MS 17:33
PROVIDERS: ADMIT Family Medicine; ATTEND Family Medicine
DX: K57.92 Diverticulitis of intestine, part unspecified, without perforation or abscess without bleeding (principal); E86.0 Dehydration; R19.7 Diarrhea, unspecified; R10.84 Generalized abdominal pain; D59.1 Other autoimmune hemolytic anemias; C85.80 Other specified types of non-Hodgkin lymphoma, unspecified site; J90 Pleural effusion, not elsewhere classified; J45.909 Unspecified asthma, uncomplicated; K21.9 Gastro-esophageal reflux disease without esophagitis; G25.81 Restless legs syndrome; Z68.30 Body mass index [BMI] 30.0-30.9, adult; N40.0 Benign prostatic hyperplasia without lower urinary tract symptoms; C85.90 Non-Hodgkin lymphoma, unspecified, unspecified site; E66.9 Obesity, unspecified; Z68.32 Body mass index [BMI] 32.0-32.9, adult; H81.12 Benign paroxysmal vertigo, left ear; J32.9 Chronic sinusitis, unspecified; K57.90 Diverticulosis of intestine, part unspecified, without perforation or abscess without bleeding; G62.9 Polyneuropathy, unspecified; Z88.8 Allergy status to other drugs, medicaments and biological substances; Z79.899 Other long term (current) drug therapy; Z79.82 Long term (current) use of aspirin; Z87.891 Personal history of nicotine dependence
CPT/HCPCS: 36415; 71275; 74176; 80053; 82150; 83605; 83690; 83880; 84484; 85025; 85379; 87040 ×2; 93005; 96361; 96365; 96367; 96375; 99285; A9270; J2405; J2543; J7030; J7050; Q9967; 82247; 82248; 83010; 85007; 85008; 85027; 85045; 86880

== ENCOUNTER 2018-04-06 14:24 | Emergency (ER) | payer MEDICARE, OTHER ==
[2018-04-06 15:33] VITALS: BP 141/59
--- NOTE | 2018-04-07 08:32 | EDM.PDOC ---
ED HPI GENERAL MEDICAL PROBLEM - General Chief Complaint: General Stated Complaint: PICC LINE SITE RED AND ITCHY Time Seen by Provider: 04/06/18 14:35 Source of Information: Reports: Patient History Limitations: Reports: No Limitations - History of Present Illness INITIAL COMMENTS - FREE TEXT/NARRATIVE: Pt. presents to ER with complaints of irritation of her PICC line insertion point. He has a picc for chemo and has no issues problems up until today. State the erythema is isolated a very small area. No fever or chills. He states that the dressing was changed today. The nurse that changed the dressing feels that the erythema is not any worse than before. Onset Date: 04/06/18 - Related Data Allergies Allergy/AdvReac Type Severity Reaction Status Date / Time doxycycline Allergy Other Verified 04/06/18 15:29 Old Spice Shaving Lotion Allergy Hives Uncoded 04/06/18 15:29 Seasonal Allergies Allergy Other Uncoded 04/06/18 15:29 Home Meds: Home Meds Acetaminophen [Tylenol] 650 mg PO Q8H PRN 03/06/17 [History] Albuterol [Ventolin HFA] 2 puff IH Q4H PRN 03/06/17 [History] Omeprazole 20 mg PO DAILY 03/06/17 [History] Aspirin [Halfprin] 81 mg PO DAILY 08/05/17 [History] Fluticasone Propionate [Flonase] 1 spray NASBOTH BID 08/05/17 [History] Fluticasone Propionate [Flovent HFA 110 MCG] 2 puff INH BID 08/05/17 [History] Dutasteride [Avodart] 0.5 mg PO DAILY 08/26/17 [History] Furosemide [Lasix] 40 mg PO DAILY PRN 08/26/17 [History] Cetirizine [ZyrTEC] 10 mg PO DAILY 01/16/18 [History] Folic Acid 1 mg PO DAILY 01/16/18 [History] levoFLOXacin [Levaquin] 500 mg PO DAILY 02/16/18 [History] Past Medical History HEENT History: Reports: Allergic Rhinitis Other HEENT History: amblyopia. paroxysmal positional vertigo of left ear. retinal degeneration. tinnitus Cardiovascular History: Reports: None Respiratory History: Reports: Asthma, SOB Other Respiratory History: dyspnea on exertion. chronic bronchitis. Increased shortness of breath today Gastrointestinal History: Reports: Diverticulosis, GERD Other Gastrointestinal History: diaphragmatic hernia Genitourinary History: Reports: BPH Musculoskeletal History: Reports: Back Pain, Chronic Other Musculoskeletal History: muscle atrophy Neurological History: Reports: Neuropathy, Peripheral, Other (See Below) Other Neuro History: restless leg syndrome. 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 nasal surgery Respiratory Surgical History: Reports: None Other Respiratory Surgeries/Procedures: Patient has history of lymphoma. Lymph nodes are enlarged and pushing on his lungs states the patient and . GI Surgical History: Reports: Appendectomy Other GI Surgeries/Procedures: hemorrhoidectomy ext comp Male Surgical History: Reports: Vasectomy Musculoskeletal Surgical History: Reports: None Oncologic Surgical History: Reports: None Social & Family History - Family History Family Medical History: Noncontributory Cardiac: Reports: Hypertension : Reports: Cystic Kidney Disease Oncologic: Reports: Bone, Prostate - Tobacco Use Smoking Status *Q: Unknown Ever Smoked - Caffeine Use Caffeine Use: Reports: None - Recreational Drug Use Recreational Drug Use: No - Living Situation & Occupation Living situation: Reports: , with Significant Other Occupation: Retired ED ROS GENERAL - Review of Systems Review Of Systems: ROS reveals no pertinent complaints other than HPI. ED EXAM, GENERAL - Physical Exam Exam: See Below Exam Limited By: No Limitations General Appearance: Alert, WD/WN, No Apparent Distress Extremities: Non-Tender, Other (mild erythema noted to insertion of PICC line. It is pruritic) Neurological: Alert, Oriented, CN II-XII Intact, Normal Cognition, Normal Gait, Normal Reflexes, No Motor/Sensory Deficits Course - Vital Signs Last Recorded V/S: Last Vital Signs Temp 36.2 C 04/06/18 14:30 Pulse 73 04/06/18 14:30 Resp 16 04/06/18 14:30 BP 141/59 H 04/06/18 14:30 Pulse Ox Departure - Departure Time of Disposition: 14:55 Disposition: Home, Self-Care 01 Clinical Impression: Local infection due to peripherally inserted central catheter (PICC) - Discharge Information Referrals: Danelle Ryder MD [Primary Care Provider] - Forms: ED Department Discharge - Assessment/Plan Plan: Advised watchful waiting. The erythema is very mild. He has not fever or chills. Advised to return if fever or chills, chest pain, shortness of breath, or worsening inflammation.
== END 2018-04-06 14:55 | disposition home or self-care (01) ==
LOC: VM.ED 14:24
DX: T80.212A Local infection due to central venous catheter, initial encounter (principal); J45.909 Unspecified asthma, uncomplicated; Z79.899 Other long term (current) drug therapy; Z79.82 Long term (current) use of aspirin; Z88.1 Allergy status to other antibiotic agents; Z91.09 Other allergy status, other than to drugs and biological substances
CPT/HCPCS: 99282

== ENCOUNTER 2018-06-07 10:12 | Observation (INO) | payer MEDICARE, OTHER ==
[2018-06-07] MEDS ORDERED: Morphine 4 MG/ML Syringe IVPUSH ONE (10:26)
[2018-06-07] MEDS ORDERED: diazePAM 5 MG/ML MDV IVPUSH ONE (10:26)
--- NOTE | 2018-06-07 12:58 | EDM.PDOC ---
ED HPI GENERAL MEDICAL PROBLEM - General Chief Complaint: Back Pain or Injury Time Seen by Provider: 06/07/18 10:15 Source of Information: Reports: Patient History Limitations: Reports: No Limitations - History of Present Illness INITIAL COMMENTS - FREE TEXT/NARRATIVE: Pt. presents to ER with complaints of low back pain. Pt. states that he stained his deck over the weekend and feels that this repetitive activity exacerbated a compression fracture of the L spine. Denies any saddle anesthesia. No incontinence. Pt. states that the pain was noticeable yesterday and worse during the night last night and he was unable to stand on his own or get out of bed this AM. Denies any fever or chills. No nausea, vomiting, or diarrhea. Pt. denies any recent trauma. No radiation into the lower extremities. Onset: Today Onset Date: 06/07/18 Location: Reports: Back Quality: Reports: Ache, Throbbing Severity: Severe Improves with: Reports: Rest Worsens with: Reports: Movement Middle Back Pain Score (Numeric/FACES): 3 - Related Data Allergies Allergy/AdvReac Type Severity Reaction Status Date / Time doxycycline Allergy Other Verified 06/07/18 11:05 Old Spice Shaving Lotion Allergy Hives Uncoded 04/06/18 15:29 Seasonal Allergies Allergy Other Uncoded 04/06/18 15:29 Home Meds: Home Meds Acetaminophen [Tylenol] 650 mg PO Q8H PRN 03/06/17 [History] Albuterol [Ventolin HFA] 2 puff IH Q4H PRN 03/06/17 [History] Omeprazole 20 mg PO DAILY 03/06/17 [History] Aspirin [Halfprin] 81 mg PO DAILY 08/05/17 [History] Fluticasone Propionate [Flonase] 1 spray NASBOTH BID 08/05/17 [History] Fluticasone Propionate [Flovent HFA 110 MCG] 2 puff INH BID 08/05/17 [History] Dutasteride [Avodart] 0.5 mg PO DAILY 08/26/17 [History] Furosemide [Lasix] 40 mg PO DAILY PRN 08/26/17 [History] Cetirizine [ZyrTEC] 10 mg PO DAILY 01/16/18 [History] Sulfamethoxazole/Trimethoprim [Bactrim Ds Tablet] 1 each PO MOWEFR 04/08/18 [ History] traMADol [Ultram] 50 - 100 mg PO Q6H PRN 06/07/18 [History] Past Medical History HEENT History: Reports: Allergic Rhinitis Other HEENT History: amblyopia. paroxysmal positional vertigo of left ear. retinal degeneration. tinnitus Cardiovascular History: Reports: None Respiratory History: Reports: Asthma, SOB Other Respiratory History: dyspnea on exertion. chronic bronchitis. Increased shortness of breath today Gastrointestinal History: Reports: Diverticulosis, GERD Other Gastrointestinal History: diaphragmatic hernia Genitourinary History: Reports: BPH Musculoskeletal History: Reports: Back Pain, Chronic Other Musculoskeletal History: muscle atrophy Neurological History: Reports: Neuropathy, Peripheral, Other (See Below) Other Neuro History: restless leg syndrome. 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 nasal surgery Respiratory Surgical History: Reports: None Other Respiratory Surgeries/Procedures: Patient has history of lymphoma. Lymph nodes are enlarged and pushing on his lungs states the patient and . GI Surgical History: Reports: Appendectomy Other GI Surgeries/Procedures: hemorrhoidectomy ext comp Male Surgical History: Reports: Vasectomy Musculoskeletal Surgical History: Reports: None Oncologic Surgical History: Reports: None Social & Family History - Family History Family Medical History: Noncontributory Cardiac: Reports: Hypertension : Reports: Cystic Kidney Disease Oncologic: Reports: Bone, Prostate - Tobacco Use Smoking Status *Q: Unknown Ever Smoked - Caffeine Use Caffeine Use: Reports: None - Living Situation & Occupation Living situation: Reports: , with Significant Other Occupation: Retired ED ROS GENERAL - Review of Systems Review Of Systems: See Below Constitutional: Reports: No Symptoms HEENT: Reports: No Symptoms Respiratory: Reports: No Symptoms Cardiovascular: Reports: No Symptoms Endocrine: Reports: No Symptoms GI/Abdominal: Reports: No Symptoms : Reports: No Symptoms Musculoskeletal: Reports: Back Pain, Other (history of lumbar compression fx) Skin: Reports: No Symptoms Neurological: Reports: No Symptoms Psychiatric: Reports: No Symptoms Hematologic/Lymphatic: Reports: No Symptoms Immunologic: Reports: No Symptoms ED EXAM, GENERAL - Physical Exam Exam: See Below Exam Limited By: No Limitations General Appearance: Alert, WD/WN, No Apparent Distress Head: Atraumatic, Normocephalic Neck: Normal Inspection, Supple, Non-Tender, Full Range of Motion Respiratory/Chest: No Respiratory Distress, Lungs Clear, Normal Breath Sounds, No Accessory Muscle Use, Chest Non-Tender Cardiovascular: Normal Peripheral Pulses, Regular Rate, Rhythm, No Edema, No Gallop, No JVD, No Murmur, No Rub Peripheral Pulses: 4+: Posterior Tibial (L), Posterior Tibial (R), Dorsalis Pedis (L), Dorsalis Pedis (R) GI/Abdominal: Normal Bowel Sounds, Soft, Non-Tender, No Organomegaly, No Distention, No Abnormal Bruit, No Mass (Male) Exam: Deferred Rectal (Males) Exam: Deferred Back Exam: Decreased Range of Motion, Muscle Spasm, Paraspinal Tenderness Extremities: Normal Inspection, Normal Range of Motion, Non-Tender, No Pedal Edema, Normal Capillary Refill Neurological: Alert, Oriented, CN II-XII Intact, Normal Cognition, Normal Gait, Normal Reflexes, No Motor/Sensory Deficits Psychiatric: Normal Affect, Normal Mood Skin Exam: Warm, Dry, Intact, Normal Color, No Rash Course - Vital Signs Last Recorded V/S: Last Vital Signs Temp 36.4 C 06/07/18 10:12 Pulse 76 06/07/18 11:19 Resp 16 06/07/18 11:19 BP 145/62 H 06/07/18 11:19 Pulse Ox 95 06/07/18 11:19 - Orders/Labs/Meds Orders: Active Orders 24 hr Category Date Time Status Patient Status [ADT] Routine ADT 06/07/18 12:19 Active Implanted Port Access [RC] CONTINUOUS Care 06/07/18 10:24 Active Meds: Medications Discontinued Medications Generic Name Dose Route Start Last Admin Trade Name Tremaine PRN Reason Stop Dose Admin Diazepam 5 mg 06/07/18 10:26 06/07/18 10:58 Valium IVPUSH 06/07/18 10:27 5 mg STAT ONE Administration Morphine Sulfate 4 mg 06/07/18 10:26 06/07/18 10:52 Morphine IVPUSH 06/07/18 10:27 4 mg ONETIME ONE Administration - Re-Assessments/Exams Free Text/Narrative Re-Assessment/Exam: 06/07/18 13:04 Pt. was given morphine 4mg IV and valium 5mg IV. Became quite somnolent and required oxygen. Pt. states that the medication minimally helped with the discomfort. He had a great deal of difficulty ambulating and would require a team lift to get him in and out of bed. Decision was made to admit patient for pain control/strengthening. Departure - Departure Time of Disposition: 13:03 Disposition: Refer to Observation Clinical Impression: Low back pain - Discharge Information Referrals: Danelle Ryder MD [Primary Care Provider] - - Problem List Review Problem List Initiated/Reviewed/Updated: Yes - My Orders Last 24 Hours: My Active Orders 06/07/18 10:24 Implanted Port Access [RC] CONTINUOUS 06/07/18 12:19 Patient Status [ADT] Routine - Assessment/Plan Last 24 Hours: My Active Orders 06/07/18 10:24 Implanted Port Access [RC] CONTINUOUS 06/07/18 12:19 Patient Status [ADT] Routine Plan: Pt. will be admitted observation. I spoke with Dr. Ryder who will assume care of the patient tomorrow AM. Will start oral Aguilar and flexeril for pain medication and morphine for breaththrough pain. Pt. is a code 1.
[2018-06-07] MEDS ORDERED: Acetaminophen/HYDROcodone 325-10 MG Tab PO ONE (13:14)
[2018-06-07] MEDS: Cyclobenzaprine 10 MG Tab PO SCH ×2 (14:01→20:04)
[2018-06-07] MEDS ORDERED: Furosemide 40 MG Tab PO PRN (16:28)
[2018-06-07] MEDS ORDERED: Albuterol 0.083% 2.5 MG/3 ML Neb Soln INH PRN (16:50)
[2018-06-07] MEDS ORDERED: Cyclobenzaprine 10 MG Tab PO PRN (17:19)
[2018-06-07] MEDS: Sulfamethoxazole/Trimethoprim 800-160 MG Tab PO SCH (18:03)
[2018-06-07] MEDS: Acetaminophen/HYDROcodone 325-10 MG Tab PO PRN ×2 (18:03→22:40)
[2018-06-07] MEDS: Fluticasone Propionate Nasal Spray 16 GM Bottle **OWN MED NASBOTH SCH (20:04)
[2018-06-07] MEDS: FLUTICASONE PROPIONATE INH SCH (20:05)
[2018-06-08] MEDS: Acetaminophen/HYDROcodone 325-10 MG Tab PO PRN ×4 (02:26→19:51)
[2018-06-08] MEDS: Omeprazole 20 MG Cap.CR PO SCH (06:18)
[2018-06-08] MEDS: Cyclobenzaprine 10 MG Tab PO SCH ×3 (07:56→19:50)
[2018-06-08] MEDS: FLUTICASONE PROPIONATE INH SCH ×2 (07:56→19:51)
[2018-06-08] MEDS: Loratadine 10 MG Tab PO SCH (07:56)
[2018-06-08] MEDS: Aspirin 81 MG Tab.EC PO SCH (07:56)
[2018-06-08] MEDS: DUTASTERIDE 0.5 MG PO SCH (07:57)
[2018-06-08] MEDS: Fluticasone Propionate Nasal Spray 16 GM Bottle **OWN MED NASBOTH SCH ×2 (07:57→19:50)
[2018-06-08] MEDS ORDERED: Heparin Sodium 100 Units/ML 3 ML Syringe IVPUSH SCH (08:00)
[2018-06-08] MEDS: Sodium Chloride 0.9% 10 ML Syringe FLUSH SCH ×2 (08:00→19:51)
[2018-06-08] MEDS ORDERED: predniSONE 20 MG Tab PO SCH (08:00)
[2018-06-08] MEDS: predniSONE 20 MG Tab PO SCH (09:42)
--- NOTE | 2018-06-08 12:04 | PCM.PN ---
- General Info Date of Service: 06/08/18 Subjective Update: 78 yo male hospital day #2 admitted with acute on chronic low back pain with no red flag symptoms. Started 36 hours after he was staining his deck. He did not sleep well overnight due to needing to void every 45 minutes. Pain is only 10% improved today in comparison to yesterday. He has not been out of bed yet this morning. Pain is located in the right lower back. No radiation into the legs. No numbness or tingling in the legs but his legs do feel week. No fever or chills. No other injury or trauma. He feels the flexeril has helped the most of anything. PT has not seen him yet. - Review of Systems General: Reports: No Symptoms Pulmonary: Reports: No Symptoms Cardiovascular: Reports: No Symptoms Gastrointestinal: Reports: No Symptoms Genitourinary: Reports: Frequency Skin: Reports: No Symptoms - Patient Data Vitals - Most Recent: Last Vital Signs Temp 36.6 C 06/08/18 10:00 Pulse 74 06/08/18 05:37 Resp 16 06/08/18 10:00 BP 138/58 L 06/08/18 10:00 Pulse Ox 91 L 06/08/18 05:37 Weight - Most Recent: 98.43 kg I&O - Last 24 Hours: Intake & Output 06/07/18 06/08/18 06/08/18 22:59 06:59 14:59 Intake Total 200 Output Total 320 Balance -120 Med Orders - Current: Current Medications Hydrocodone Bitart/Acetaminophen ([place] 325-10 Mg) 1 tab PO Q3H PRN PRN Reason: Pain Last Admin: 06/08/18 02:26 Dose: 1 tab Albuterol (Proventil Neb Soln) 2.5 mg INH Q4H PRN PRN Reason: DYSPNEA Last Admin: 06/07/18 18:05 Dose: 2.5 mg Aspirin (Halfprin) 81 mg PO DAILY [facility] Last Admin: 06/08/18 07:56 Dose: 81 mg Cyclobenzaprine HCl (Flexeril) 10 mg PO TID [facility] Last Admin: 06/08/18 07:56 Dose: 10 mg Fluticasone Propionate (Flonase) 0 gm NASBOTH BID [facility] Last Admin: 06/08/18 07:57 Dose: 1 spray Furosemide (Lasix) 40 mg PO DAILY PRN PRN Reason: Edema Heparin Sodium (Porcine) (Heparin Lock Flush 100 Units/Ml) 1,000 unit IVPUSH DAILY [facility] Last Admin: 06/08/18 08:00 Dose: 1,000 unit Loratadine (Claritin) 10 mg PO DAILY [facility] Last Admin: 06/08/18 07:56 Dose: 10 mg Dutasteride (Avodart () 0.5 Mg Own Med) 0 mg PO DAILY [facility] Last Admin: 06/08/18 07:57 Dose: 0.5 mg Fluticasone Propionate (Flovent Hfa 110 Mcg) Own Med 0 puff INH BID [facility] Last Admin: 06/08/18 07:56 Dose: 1 puff Omeprazole (Omeprazole) 20 mg PO ACBREAKFAST [facility] Last Admin: 06/08/18 06:18 Dose: 20 mg Prednisone (Prednisone) 40 mg PO WITHBREAKFAST [facility] Last Admin: 06/08/18 09:42 Dose: 40 mg Sodium Chloride (Saline Flush) 10 ml FLUSH BID [facility] Last Admin: 06/08/18 08:00 Dose: 10 ml Trimethoprim/Sulfamethoxazole (Septra Ds) 1 tab PO MoWeFr@0900 [facility] Last Admin: 06/07/18 18:03 Dose: 1 tab Discontinued Medications Hydrocodone Bitart/Acetaminophen ([place] 325-10 Mg) 1 tab PO ONETIME ONE Stop: 06/07/18 13:15 Last Admin: 06/07/18 13:26 Dose: 1 tab Cyclobenzaprine HCl (Flexeril) 10 mg PO TID PRN PRN Reason: Pain Diazepam (Valium) 5 mg IVPUSH STAT ONE Stop: 06/07/18 10:27 Last Admin: 06/07/18 10:58 Dose: 5 mg Morphine Sulfate (Morphine) 4 mg IVPUSH ONETIME ONE Stop: 06/07/18 10:27 Last Admin: 06/07/18 10:52 Dose: 4 mg Prednisone (Prednisone) 40 mg PO DAILY [facility] - Exam General: Alert, Cooperative, No Acute Distress Neck: Supple, Trachea Midline, No Thyromegaly. No: Lymphadenopathy Lungs: Clear to Auscultation, Normal Respiratory Effort Cardiovascular: Regular Rate, Regular Rhythm, No Murmurs GI/Abdominal Exam: Normal Bowel Sounds, Soft, Non-Tender Back Exam: No: Paraspinal Tenderness, Vertebral Tenderness Extremities: Normal Inspection, Non-Tender, No Pedal Edema Skin: Warm, Dry, Intact Neurological: No New Focal Deficit, Strength Equal Bilateral, Reflexes Equal Bilateral, Sensation Intact - Problem List & Annotations (1) Low back pain SNOMED Code(s): 298705927 Code(s): M54.5 - LOW BACK PAIN Status: Acute Current Visit: Yes Qualifiers: Chronicity: acute Back pain laterality: right Sciatica presence: without sciatica Qualified Code(s): M54.5 - Low back pain (2) Frequency of urination SNOMED Code(s): 707393942 Code(s): R35.0 - FREQUENCY OF MICTURITION Status: Acute Current Visit: Yes (3) Asthma SNOMED Code(s): 409360848 Code(s): J45.909 - UNSPECIFIED ASTHMA, UNCOMPLICATED Status: Chronic Current Visit: Yes Qualifiers: Asthma severity: moderate Asthma persistence: persistent Asthma complication type: uncomplicated Qualified Code(s): J45.40 - Moderate persistent asthma, uncomplicated (4) BPH (benign prostatic hyperplasia) SNOMED Code(s): 495817890 Code(s): N40.0 - BENIGN PROSTATIC HYPERPLASIA WITHOUT LOWER URINRY TRACT SYMP Status: Chronic Current Visit: No Qualifiers: Lower urinary tract symptom presence: symptoms absent Qualified Code(s): N40.0 - Benign prostatic hyperplasia without lower urinary tract symptoms (5) Chronic sinusitis SNOMED Code(s): 13660767 Code(s): J32.9 - CHRONIC SINUSITIS, UNSPECIFIED Status: Chronic Current Visit: No Qualifiers: Sinusitis location: pansinusitis Qualified Code(s): 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 Not doing much better today. - Plan Plan:: #1 Acute on Chronic Low Back Pain - PT to work with him today. - Continue current pain regimen but will also add prednisone with plans to d/c home on a medrol dosepack. - If we are not able to control his pain better by tomorrow am, will plan to check labs and an x-ray and consider transfer for urgent MRI. #2 Urinary Frequency - Likely medication related. Will monitor. 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 Patient will remain on observation status today as he does not meet criteria for acute. Hopefully, he will be able to d/c home tomorrow; if not, will need to assess need for further evaluation and possibly transfer. No VTE prophylaxis as it is anticipated he will d/c within 48 hours. Code status is full.
[2018-06-08 14:37] LABS: CHLORIDE,CL 98 mmol/L (98-107); SODIUM,NA 134 mmol/L (136-145)
[2018-06-08 14:41] LABS: ANION GAP 14.3 mmol/L (10-20)
--- NOTE | 2018-06-08 16:33 | PCM.SN ---
- Free Text/Narrative Note: Labs obtained today due to significant struggles initially with PT today. CBC, BMP, and u/a ok. CRP and ESR are both elevated but it is unclear what his baseline is. PT went much better this afternoon and he is moving around much better now. Therefore, will continue current care plan and recheck labs in the morning. Anticipate d/c tomorrow morning if he continues to improve; otherwise, will need to consider transfer for further evaluation/testing.
[2018-06-09] MEDS: Omeprazole 20 MG Cap.CR PO SCH (06:06)
[2018-06-09] MEDS: Acetaminophen/HYDROcodone 325-10 MG Tab PO PRN (06:11)
[2018-06-09] MEDS: Sodium Chloride 0.9% 10 ML Syringe FLUSH SCH (06:44)
[2018-06-09] MEDS: predniSONE 20 MG Tab PO SCH (07:36)
[2018-06-09] MEDS: Cyclobenzaprine 10 MG Tab PO SCH (07:36)
[2018-06-09] MEDS: Aspirin 81 MG Tab.EC PO SCH (07:36)
[2018-06-09] MEDS: FLUTICASONE PROPIONATE INH SCH (07:37)
[2018-06-09] MEDS: Fluticasone Propionate Nasal Spray 16 GM Bottle **OWN MED NASBOTH SCH (07:37)
[2018-06-09] MEDS: DUTASTERIDE 0.5 MG PO SCH (07:37)
[2018-06-09] MEDS ORDERED: Heparin Sodium 100 Units/ML 3 ML Syringe IVPUSH PRN (07:37)
[2018-06-09] MEDS: Loratadine 10 MG Tab PO SCH (07:37)
[2018-06-09] MEDS ORDERED: Sodium Chloride 0.9% 10 ML Syringe FLUSH PRN (07:39)
[2018-06-09] MEDS ORDERED: Sodium Chloride 0.9% 10 ML Syringe FLUSH SCH (08:00)
[2018-06-09] MEDS ORDERED: Heparin Sodium 100 Units/ML 3 ML Syringe IVPUSH SCH ×2 (08:00)
--- NOTE | 2018-06-09 08:10 | PCM.DCSUM1 ---
Discharge Summary - Hospital Course Brief History: Mr. Mejía is a 78 yo male who was admitted for management of acute on chronic low back pain without any red flag symptoms. - Discharge Data Discharge Date: 06/09/18 Discharge Disposition: Home, Self-Care 01 Condition: Good - Discharge Diagnosis/Problem(s) (1) Low back pain SNOMED Code(s): 934537994 ICD Code: M54.5 - LOW BACK PAIN Status: Acute Current Visit: Yes Qualifiers: Chronicity: acute Back pain laterality: right Sciatica presence: without sciatica Qualified Code(s): M54.5 - Low back pain (2) Frequency of urination SNOMED Code(s): 353877320 ICD Code: R35.0 - FREQUENCY OF MICTURITION Status: Acute Current Visit: Yes (3) Asthma SNOMED Code(s): 800768493 ICD Code: J45.909 - UNSPECIFIED ASTHMA, UNCOMPLICATED Status: Chronic Current Visit: Yes Qualifiers: Asthma severity: moderate Asthma persistence: persistent Asthma complication type: uncomplicated Qualified Code(s): J45.40 - Moderate persistent asthma, uncomplicated (4) BPH (benign prostatic hyperplasia) SNOMED Code(s): 478946454 ICD Code: N40.0 - BENIGN PROSTATIC HYPERPLASIA WITHOUT LOWER URINRY TRACT SYMP Status: Chronic Current Visit: No Qualifiers: Lower urinary tract symptom presence: symptoms absent Qualified Code(s): N40.0 - Benign prostatic hyperplasia without lower urinary tract symptoms (5) Chronic sinusitis SNOMED Code(s): 92103648 ICD Code: J32.9 - CHRONIC SINUSITIS, UNSPECIFIED Status: Chronic Current Visit: No Qualifiers: Sinusitis location: pansinusitis Qualified Code(s): 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 By the following morning, his pain had not improved much, and he had significant difficulty working with PT. He had also noted urinary frequency. Therefore, labs and a u/a were obtained. These were remarkable only for elevations in his ESR and CRP. Prednisone was added for pain control and PT worked with him again in the afternoon with much better results. ESR and CRP were stable on repeat and it is felt based on his complex medical history that this is not related to his back pain. He is doing much better in terms of mobility on the day of discharge but feels his pain is about the same. He will need to continue PT as an outpatient as well. His urinary frequency improved once he was able to stand to void. He will be given prescriptions for flexeril and norco as well as for a medrol dose pack to take at home. He will follow-up in clinic next week, sooner as needed. - Patient Instructions Diet: Usual Diet as Tolerated Activity: As Tolerated Driving: Do Not Drive (as long as taking norco) Showering/Bathing: May Shower Notify Provider of: Fever, Increased Pain, Swelling and Redness - Discharge Plan *PRESCRIPTION DRUG MONITORING PROGRAM REVIEWED*: No *COPY OF PRESCRIPTION DRUG MONITORING REPORT IN PATIENT MANDO: No Prescriptions/Med Rec: Cyclobenzaprine [Flexeril] 10 mg PO TID PRN #21 tablet PRN Reason: Muscle Spasm methylPREDNISolone [Medrol] 4 mg PO ASDIRECTED #1 dospk Home Medications: Home Meds Albuterol [Ventolin HFA] 2 puff IH Q4H PRN 03/06/17 [History] Omeprazole 20 mg PO DAILY 03/06/17 [History] Aspirin [Halfprin] 81 mg PO DAILY 08/05/17 [History] Fluticasone Propionate [Flonase] 1 spray NASBOTH BID 08/05/17 [History] Fluticasone Propionate [Flovent HFA 110 MCG] 2 puff INH BID 08/05/17 [History] Dutasteride [Avodart] 0.5 mg PO DAILY 08/26/17 [History] Furosemide [Lasix] 40 mg PO DAILY PRN 08/26/17 [History] Cetirizine [ZyrTEC] 10 mg PO DAILY 01/16/18 [History] Sulfamethoxazole/Trimethoprim [Bactrim Ds Tablet] 1 each PO MOWEFR 04/08/18 [ History] Heparin Sodium,Porcine/PF [Heparin 1,000 Unit/10 (100/ml)] 1,000 unit IV DAILY 06/07/18 [History] Acetaminophen/HYDROcodone [[place] 325-10 MG] 1 tab PO Q3H PRN tablet 06/09/18 [ Rx] Cyclobenzaprine [Flexeril] 10 mg PO TID PRN #21 tablet 06/09/18 [Rx] methylPREDNISolone [Medrol] 4 mg PO ASDIRECTED #1 dospk 06/09/18 [Rx] Forms: ED Department Discharge Referrals: Danelle Ryder MD [Primary Care Provider] - - Discharge Summary/Plan Comment DC Time >30 min.: No - General Info Date of Service: 06/09/18 Subjective Update: 78 yo male admitted with acute on chronic back pain. Doing much better this morning. Pain is about the same but his mobility has significantly improved. Voiding without issue and was only up 2-3 times last night. No radiation of pain into the legs. Last night felt that his left leg was weaker than the right but that is improved this morning; does have more pain with mobility of the left leg. No numbness or tingling. No bowel/bladder issues. Patient has been afebrile. - Review of Systems General: Reports: No Symptoms HEENT: Reports: No Symptoms Pulmonary: Reports: No Symptoms Gastrointestinal: Reports: No Symptoms Genitourinary: Reports: No Symptoms Musculoskeletal: Reports: Back Pain Skin: Reports: No Symptoms Neurological: Reports: No Symptoms - Patient Data Vitals - Most Recent: Last Vital Signs Temp 36.4 C 06/09/18 06:00 Pulse 69 06/09/18 06:00 Resp 18 06/09/18 06:00 BP 137/84 06/09/18 06:00 Pulse Ox 96 06/09/18 06:00 Weight - Most Recent: 98.43 kg I&O - Last 24 hours: Intake & Output 06/08/18 06/09/18 06/09/18 22:59 06:59 14:59 Intake Total 200 Output Total 175 400 Balance -175 -200 Lab Results - Last 24 hrs: Laboratory Results - last 24 hr 06/08/18 06/08/18 06/08/18 Range/Units 14:07 14:07 14:25 WBC 6.8 (4.0-10.0) x10^3/uL RBC 3.36 L (4.5-6.0) x10^6/uL Hgb 10.1 L D (14.0-18.0) g/dL Hct 31.4 L (40.0-52.0) % MCV 93.5 H D (78.0-93.0) fL MCH 30.1 (26.0-32.0) pg MCHC 32.2 (32.0-36.0) g/dL RDW Coeff of Derian 15.2 H (10.0-15.0) % Plt Count 79 L (130-400) x10^3/uL Neut % (Auto) 92.0 H (50.0-80.0) % Lymph % (Auto) 2.5 L (25.0-50.0) % [place] % (Auto) 5.1 (2.0-11.0) % Eos % (Auto) 0.0 (0.0-4.0) % Baso % (Auto) 0.4 (0.2-1.2) % ESR 82 H (0-16) mm/hr Sodium 134 L (136-145) mmol/L Potassium 4.3 (3.5-5.1) mmol/L Chloride 98 (98-107) mmol/L Carbon Dioxide 26 (21-32) mmol/L Anion Gap 14.3 (10-20) mmol/L BUN 23 H (7-18) mg/dL Creatinine 0.9 (0.70-1.30) mg/dL Est Cr Clr Drug Dosing 81.19 mL/min Estimated GFR (MDRD) > 60 Glucose 136 H (74-106) mg/dL Calcium 8.8 (8.5-10.1) mg/dL C-Reactive Protein 19.0 H (<=0.9) mg/dL Urine Color Dark yellow H (YELLOW) Urine Appearance Slightly cloudy H (CLEAR) Urine pH 6.0 (5.0-8.0) Ur Specific [place] 1.020 Urine Protein 30 H (NEGATIVE) mg/dL Urine Glucose (UA) Negative (NEGATIVE) mg/dL Urine Ketones Negative (NEGATIVE) mg/dL Urine Occult Blood Negative (NEGATIVE) Urine Nitrite Negative (NEGATIVE) Urine Bilirubin Negative (NEGATIVE) Urine Urobilinogen 0.2 (0.2) EU/dL Ur Leukocyte Esterase Negative (NEGATIVE) Urine RBC 0-5 (NOT SEEN) /HPF Urine WBC 0-5 (NOT SEEN) /HPF Ur Squamous Epith Cells Not seen (NEGATIVE) /HPF Amorphous Sediment Rare Urine Bacteria Rare (NEGATIVE) /HPF Urine Mucus Rare H (NEGATIVE) /LPF 06/09/18 06/09/18 Range/Units 06:44 06:44 WBC (4.0-10.0) x10^3/uL RBC (4.5-6.0) x10^6/uL Hgb (14.0-18.0) g/dL Hct (40.0-52.0) % MCV (78.0-93.0) fL MCH (26.0-32.0) pg MCHC (32.0-36.0) g/dL RDW Coeff of Derian (10.0-15.0) % Plt Count (130-400) x10^3/uL Neut % (Auto) (50.0-80.0) % Lymph % (Auto) (25.0-50.0) % [place] % (Auto) (2.0-11.0) % Eos % (Auto) (0.0-4.0) % Baso % (Auto) (0.2-1.2) % ESR 81 H (0-16) mm/hr Sodium (136-145) mmol/L Potassium (3.5-5.1) mmol/L Chloride (98-107) mmol/L Carbon Dioxide (21-32) mmol/L Anion Gap (10-20) mmol/L BUN (7-18) mg/dL Creatinine (0.70-1.30) mg/dL Est Cr Clr Drug Dosing mL/min Estimated GFR (MDRD) Glucose (74-106) mg/dL Calcium (8.5-10.1) mg/dL C-Reactive Protein 16.7 H (<=0.9) mg/dL Urine Color (YELLOW) Urine Appearance (CLEAR) Urine pH (5.0-8.0) Ur Specific [place] Urine Protein (NEGATIVE) mg/dL Urine Glucose (UA) (NEGATIVE) mg/dL Urine Ketones (NEGATIVE) mg/dL Urine Occult Blood (NEGATIVE) Urine Nitrite (NEGATIVE) Urine Bilirubin (NEGATIVE) Urine Urobilinogen (0.2) EU/dL Ur Leukocyte Esterase (NEGATIVE) Urine RBC (NOT SEEN) /HPF Urine WBC (NOT SEEN) /HPF Ur Squamous Epith Cells (NEGATIVE) /HPF Amorphous Sediment Urine Bacteria (NEGATIVE) /HPF Urine Mucus (NEGATIVE) /LPF BONI Results - Last 24 hrs: Microbiology 06/08/18 09:42 MRSA Surveillance Culture - Final Nares, Left NO MRSA ISOLATED Med Orders - Current: Current Medications Hydrocodone Bitart/Acetaminophen ([place] 325-10 Mg) 1 tab PO Q3H PRN PRN Reason: Pain Last Admin: 06/09/18 06:11 Dose: 1 tab Albuterol (Proventil Neb Soln) 2.5 mg INH Q4H PRN PRN Reason: DYSPNEA Last Admin: 06/07/18 18:05 Dose: 2.5 mg Aspirin (Halfprin) 81 mg PO DAILY [facility] Last Admin: 06/09/18 07:36 Dose: 81 mg Cyclobenzaprine HCl (Flexeril) 10 mg PO TID [facility] Last Admin: 06/09/18 07:36 Dose: 10 mg Fluticasone Propionate (Flonase) 0 gm NASBOTH BID [facility] Last Admin: 06/09/18 07:37 Dose: 1 spray Furosemide (Lasix) 40 mg PO DAILY PRN PRN Reason: Edema Heparin Sodium (Porcine) (Heparin Lock Flush 100 Units/Ml) 300 unit IVPUSH DAILY [facility] Last Admin: 06/09/18 07:40 Dose: Not Given Heparin Sodium (Porcine) (Heparin Lock Flush 100 Units/Ml) 300 unit IVPUSH ASDIRECTED PRN PRN Reason: kvo Loratadine (Claritin) 10 mg PO DAILY [facility] Last Admin: 06/09/18 07:37 Dose: 10 mg Dutasteride (Avodart () 0.5 Mg Own Med) 0 mg PO DAILY [facility] Last Admin: 06/09/18 07:37 Dose: 0.5 mg Fluticasone Propionate (Flovent Hfa 110 Mcg) Own Med 0 puff INH BID [facility] Last Admin: 06/09/18 07:37 Dose: 2 puff Omeprazole (Omeprazole) 20 mg PO ACBREAKFAST [facility] Last Admin: 06/09/18 06:06 Dose: 20 mg Prednisone (Prednisone) 40 mg PO WITHBREAKFAST [facility] Last Admin: 06/09/18 07:36 Dose: 40 mg Sodium Chloride (Saline Flush) 10 ml FLUSH DAILY [facility] Sodium Chloride (Saline Flush) 10 ml FLUSH ASDIRECTED PRN PRN Reason: kvo Trimethoprim/Sulfamethoxazole (Septra Ds) 1 tab PO MoWeFr@0900 [facility] Last Admin: 06/07/18 18:03 Dose: 1 tab Discontinued Medications Hydrocodone Bitart/Acetaminophen ([place] 325-10 Mg) 1 tab PO ONETIME ONE Stop: 06/07/18 13:15 Last Admin: 06/07/18 13:26 Dose: 1 tab Cyclobenzaprine HCl (Flexeril) 10 mg PO TID PRN PRN Reason: Pain Diazepam (Valium) 5 mg IVPUSH STAT ONE Stop: 06/07/18 10:27 Last Admin: 06/07/18 10:58 Dose: 5 mg Heparin Sodium (Porcine) (Heparin Lock Flush 100 Units/Ml) 1,000 unit IVPUSH DAILY [facility] Last Admin: 06/08/18 08:00 Dose: 1,000 unit Heparin Sodium (Porcine) (Heparin Lock Flush 100 Units/Ml) 100 unit IVPUSH DAILY [facility] Last Admin: 06/09/18 07:11 Dose: 100 unit Morphine Sulfate (Morphine) 4 mg IVPUSH ONETIME ONE Stop: 06/07/18 10:27 Last Admin: 06/07/18 10:52 Dose: 4 mg Prednisone (Prednisone) 40 mg PO DAILY [facility] Sodium Chloride (Saline Flush) 10 ml FLUSH BID [facility] Last Admin: 06/09/18 06:44 Dose: 10 ml Sodium Chloride (Saline Flush) 10 ml FLUSH DAILY [facility] - Exam General: Reports: Alert, Oriented, Cooperative, No Acute Distress HEENT: Reports: Mucous Membr. Moist/[place] Neck: Reports: Supple, Trachea Midline, No Thyromegaly. Denies: Lymphadenopathy Lungs: Reports: Clear to Auscultation, Normal Respiratory Effort Cardiovascular: Reports: Regular Rate, Regular Rhythm, No Murmurs GI/Abdominal Exam: Normal Bowel Sounds, Soft, Non-Tender, No Organomegaly, No Distention, No Mass Extremities: Non-Tender, No Pedal Edema, Normal Capillary Refill Skin: Reports: Warm, Dry, Intact Neurological: Reports: No New Focal Deficit
[2018-06-09] MEDS: Sulfamethoxazole/Trimethoprim 800-160 MG Tab PO SCH (09:11)
[2018-06-09 10:13] VITALS: BP 112/51
[2018-06-10] MEDS ORDERED: Sodium Chloride 0.9% 10 ML Syringe FLUSH SCH (08:00)
== END 2018-06-09 10:35 | disposition home or self-care (01) ==
LOC: VM.ED 10:12 → VM.MS 12:52
PROVIDERS: ADMIT Physician Assistant; ATTEND Family Medicine
DX: G89.29 Other chronic pain (principal); M54.5 Low back pain; R35.0 Frequency of micturition; J45.40 Moderate persistent asthma, uncomplicated; J32.4 Chronic pansinusitis; C85.80 Other specified types of non-Hodgkin lymphoma, unspecified site; K21.9 Gastro-esophageal reflux disease without esophagitis; N40.0 Benign prostatic hyperplasia without lower urinary tract symptoms; Z88.1 Allergy status to other antibiotic agents; Z91.048 Other nonmedicinal substance allergy status; Z79.82 Long term (current) use of aspirin; Z79.51 Long term (current) use of inhaled steroids; Z79.52 Long term (current) use of systemic steroids; Z79.899 Other long term (current) drug therapy
CPT/HCPCS: 80048; 81001; 85025; 85652; 86140; 94640; 96374; 96375; 97161; 97165; 97530; 99284; A9270; G0283; G0378; J1642; J2270; J3360; 36415; J7613-GY

== ENCOUNTER 2018-06-14 18:11 | Emergency (ER) | payer MEDICARE, OTHER ==
[2018-06-14] MEDS ORDERED: Sodium Chloride 0.9% 10 ML Syringe FLUSH PRN (18:21)
[2018-06-14] MEDS ORDERED: Sodium Chloride 0.9% 1,000 ML IV ONE (18:23)
[2018-06-14] MEDS ORDERED: HYDROmorphone 1 MG/ML Syringe IVPUSH ONE ×2 (18:23→20:44)
[2018-06-14 18:31] VITALS: BP 154/80
--- NOTE | 2018-06-14 18:37 | EDM.PDOC ---
ED HPI GENERAL MEDICAL PROBLEM - General Chief Complaint: Fever Time Seen by Provider: 06/14/18 18:11 Source of Information: Reports: Patient History Limitations: Reports: No Limitations - History of Present Illness INITIAL COMMENTS - FREE TEXT/NARRATIVE: Pt. presents to ER with complaints of severe low back pain. He was admitted for the same from 06/07 to 06/09. Pt. has been experiencing low back pain for several months and was diagnosed with a lumbar compression fracture earlier this spring. Pt. has finished chemotherapy for non-hodgkins lymphoma this spring as well. Denies any radiculopathy. No saddle anesthesia. No incontinence. He states that the pain has never really improved since discharge. He has been having a hard time participating in PT. He states that overall the discomfort is unchanged from how it was when he was admitted last week. Pt. is experiencing new onset cough that started today. He is also experiencing some abdominal pain as well. He states that it is diffuse in nature. He states that he has been chilled. He states that his cough is productive. He denies any dysuria, frequency, or urgency. No skin rashes. Denies any chest pain. He states again the the back pain has been present for weeks, worse today. The cough and chest congestion started today. The abdominal pain has been present for the past several days. Onset Date: 06/14/18 Location: Reports: Chest, Abdomen, Back Middle Back Pain Score (Numeric/FACES): 8 - Related Data Allergies Allergy/AdvReac Type Severity Reaction Status Date / Time doxycycline Allergy Other Verified 06/14/18 18:20 Old Spice Shaving Lotion Allergy Hives Uncoded 06/14/18 18:20 Seasonal Allergies Allergy Other Uncoded 06/14/18 18:20 Home Meds: Home Meds Albuterol [Ventolin HFA] 2 puff IH Q4H PRN 03/06/17 [History] Omeprazole 20 mg PO DAILY 03/06/17 [History] Aspirin [Halfprin] 81 mg PO DAILY 08/05/17 [History] Fluticasone Propionate [Flonase] 1 spray NASBOTH BID 08/05/17 [History] Fluticasone Propionate [Flovent HFA 110 MCG] 2 puff INH BID 08/05/17 [History] Dutasteride [Avodart] 0.5 mg PO DAILY 08/26/17 [History] Furosemide [Lasix] 40 mg PO DAILY PRN 08/26/17 [History] Cetirizine [ZyrTEC] 10 mg PO DAILY 01/16/18 [History] Sulfamethoxazole/Trimethoprim [Bactrim Ds Tablet] 1 each PO MOWEFR 04/08/18 [ History] Acetaminophen/HYDROcodone [Lane 325-10 MG] 1 tab PO Q3H PRN tablet 06/09/18 [ Rx] Cyclobenzaprine [Flexeril] 10 mg PO TID PRN #21 tablet 06/09/18 [Rx] Heparin Sodium [Heparin Lock Flush 100 Units/ML] 300 units IV DAILY 06/09/18 [ History] methylPREDNISolone [Medrol] 4 mg PO ASDIRECTED #1 dospk 06/09/18 [Rx] Past Medical History HEENT History: Reports: Allergic Rhinitis Other HEENT History: amblyopia. paroxysmal positional vertigo of left ear. retinal degeneration. tinnitus Cardiovascular History: Reports: None Respiratory History: Reports: Asthma, SOB Other Respiratory History: dyspnea on exertion. chronic bronchitis. Increased shortness of breath today Gastrointestinal History: Reports: Diverticulosis, GERD Other Gastrointestinal History: diaphragmatic hernia Genitourinary History: Reports: BPH Musculoskeletal History: Reports: Back Pain, Chronic Other Musculoskeletal History: muscle atrophy Neurological History: Reports: Neuropathy, Peripheral, Other (See Below) Other Neuro History: restless leg syndrome. 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 nasal surgery Respiratory Surgical History: Reports: None Other Respiratory Surgeries/Procedures: Patient has history of lymphoma. Lymph nodes are enlarged and pushing on his lungs states the patient and . GI Surgical History: Reports: Appendectomy Other GI Surgeries/Procedures: hemorrhoidectomy ext comp Male Surgical History: Reports: Vasectomy Musculoskeletal Surgical History: Reports: None Oncologic Surgical History: Reports: None Social & Family History - Family History Family Medical History: Noncontributory Cardiac: Reports: Hypertension : Reports: Cystic Kidney Disease Oncologic: Reports: Bone, Prostate - Caffeine Use Caffeine Use: Reports: None - Living Situation & Occupation Living situation: Reports: , with Significant Other Occupation: Retired ED ROS GENERAL - Review of Systems Review Of Systems: See Below Constitutional: Reports: Fever, Chills, Malaise, Weakness, Fatigue HEENT: Reports: No Symptoms Respiratory: Reports: Cough, Sputum. Denies: Shortness of Breath Cardiovascular: Reports: No Symptoms Endocrine: Reports: No Symptoms GI/Abdominal: Reports: No Symptoms : Reports: No Symptoms Musculoskeletal: Reports: Back Pain Skin: Reports: No Symptoms Neurological: Reports: Other (low back pain) Psychiatric: Reports: No Symptoms Hematologic/Lymphatic: Reports: No Symptoms Immunologic: Reports: No Symptoms ED EXAM, GENERAL - Physical Exam Exam: See Below Exam Limited By: No Limitations General Appearance: Alert, WD/WN, No Apparent Distress Throat/Mouth: Normal Teeth, Normal Gums, Normal Oropharynx, No Airway Compromise Head: Atraumatic, Normocephalic Neck: Normal Inspection, Supple, Non-Tender, Full Range of Motion Respiratory/Chest: No Respiratory Distress, Lungs Clear, Normal Breath Sounds, No Accessory Muscle Use, Chest Non-Tender Cardiovascular: Normal Peripheral Pulses, Regular Rate, Rhythm, No Edema, No JVD , No Murmur Peripheral Pulses: 4+: Radial (R), Dorsalis Pedis (L), Dorsalis Pedis (R) GI/Abdominal: Distended, Tender (Male) Exam: Deferred Rectal (Males) Exam: Deferred Back Exam: Decreased Range of Motion, Muscle Spasm, Paraspinal Tenderness, Vertebral Tenderness Extremities: Normal Inspection, Normal Range of Motion, Non-Tender, Normal Capillary Refill, Pallor Neurological: Alert, Oriented, CN II-XII Intact, Normal Cognition, No Motor/ Sensory Deficits Psychiatric: Normal Affect, Normal Mood Skin Exam: Warm, Dry, Intact, Pallor Course - Vital Signs Last Recorded V/S: Last Vital Signs Temp 38.1 C 06/14/18 19:18 Pulse 119 H 06/14/18 18:11 Resp 16 06/14/18 18:11 BP 154/80 H 06/14/18 18:11 Pulse Ox 92 L 06/14/18 18:11 - Orders/Labs/Meds Orders: Active Orders 24 hr Category Date Time Status CULTURE BLOOD [BC] Stat Lab 06/14/18 18:38 Results CULTURE BLOOD [BC] Stat Lab 06/14/18 18:47 Results UA W/MICROSCOPIC [URIN] Stat Lab 06/14/18 20:30 Results Sodium Chloride 0.9% [Saline Flush] Med 06/14/18 18:21 Active 10 ml FLUSH ASDIRECTED PRN Blood Culture x2 Reflex Set [OM.PC] Stat Oth 06/14/18 18:22 Ordered Peripheral IV Insertion Adult [OM.PC] Routine Oth 06/14/18 18:21 Ordered Medication Orders Sodium Chloride (Saline Flush) 10 ml FLUSH ASDIRECTED PRN PRN Reason: Keep Vein Open Labs: Laboratory Tests 06/14/18 06/14/18 06/14/18 Range/Units 18:38 18:38 18:38 WBC 5.6 (4.0-10.0) x10^3/uL RBC 3.81 L (4.5-6.0) x10^6/uL Hgb 11.1 L (14.0-18.0) g/dL Hct 34.9 L (40.0-52.0) % MCV 91.6 (78.0-93.0) fL MCH 29.1 (26.0-32.0) pg MCHC 31.8 L (32.0-36.0) g/dL RDW Coeff of Derian 14.9 (10.0-15.0) % Plt Count 113 L (130-400) x10^3/uL Add Manual Diff Yes Neutrophils % (Manual) 90 H (50-80) % Band Neutrophils % 3 (0-6) % Lymphocytes % (Manual) 3 L (25-50) % Monocytes % (Manual) 4 (2-11) % Platelet Estimate Decreased L Anisocytosis 1+ slight H PT 10.2 (10.0-12.8) SEC INR 0.9 L (2.0-3.5) Sodium 134 L (136-145) mmol/L Potassium 4.1 (3.5-5.1) mmol/L Chloride 97 L (98-107) mmol/L Carbon Dioxide 30 (21-32) mmol/L Anion Gap 11.1 (10-20) mmol/L BUN 16 (7-18) mg/dL Creatinine 0.8 (0.70-1.30) mg/dL Est Cr Clr Drug Dosing 91.33 mL/min Estimated GFR (MDRD) > 60 Glucose 136 H (74-106) mg/dL Lactic Acid (0.4-2.0) mmol/L Calcium 8.4 L (8.5-10.1) mg/dL Corrected Calcium 9.36 (8.5-10.1) mg/dL Phosphorus 3.2 (2.6-4.7) mg/dL Magnesium 1.7 L (1.8-2.4) mg/dL Total Bilirubin 0.9 (0.2-1.0) mg/dL AST 21 (15-37) U/L ALT 12 L (16-63) U/L Alkaline Phosphatase 78 (46-116) U/L C-Reactive Protein 5.5 H (<=0.9) mg/dL Total Protein 6.4 (6.4-8.2) g/dL Albumin 2.8 L (3.4-5.0) g/dL Globulin 3.6 Albumin/Globulin Ratio 0.78 TSH, Ultra Sensitive 2.040 (0.358-3.74) uIU/mL Urine Color (YELLOW) Urine Appearance (CLEAR) Urine pH (5.0-8.0) Ur Specific [place] Urine Protein (NEGATIVE) mg/dL Urine Glucose (UA) (NEGATIVE) mg/dL Urine Ketones (NEGATIVE) mg/dL Urine Occult Blood (NEGATIVE) Urine Nitrite (NEGATIVE) Urine Bilirubin (NEGATIVE) Urine Urobilinogen (0.2) EU/dL Ur Leukocyte Esterase (NEGATIVE) 06/14/18 06/14/18 Range/Units 18:38 20:30 WBC (4.0-10.0) x10^3/uL RBC (4.5-6.0) x10^6/uL Hgb (14.0-18.0) g/dL Hct (40.0-52.0) % MCV (78.0-93.0) fL MCH (26.0-32.0) pg MCHC (32.0-36.0) g/dL RDW Coeff of Derian (10.0-15.0) % Plt Count (130-400) x10^3/uL Add Manual Diff Neutrophils % (Manual) (50-80) % Band Neutrophils % (0-6) % Lymphocytes % (Manual) (25-50) % Monocytes % (Manual) (2-11) % Platelet Estimate Anisocytosis PT (10.0-12.8) SEC INR (2.0-3.5) Sodium (136-145) mmol/L Potassium (3.5-5.1) mmol/L Chloride (98-107) mmol/L Carbon Dioxide (21-32) mmol/L Anion Gap (10-20) mmol/L BUN (7-18) mg/dL Creatinine (0.70-1.30) mg/dL Est Cr Clr Drug Dosing mL/min Estimated GFR (MDRD) Glucose (74-106) mg/dL Lactic Acid 1.0 (0.4-2.0) mmol/L Calcium (8.5-10.1) mg/dL Corrected Calcium (8.5-10.1) mg/dL Phosphorus (2.6-4.7) mg/dL Magnesium (1.8-2.4) mg/dL Total Bilirubin (0.2-1.0) mg/dL AST (15-37) U/L ALT (16-63) U/L Alkaline Phosphatase (46-116) U/L C-Reactive Protein (<=0.9) mg/dL Total Protein (6.4-8.2) g/dL Albumin (3.4-5.0) g/dL Globulin Albumin/Globulin Ratio TSH, Ultra Sensitive (0.358-3.74) uIU/mL Urine Color Yellow (YELLOW) Urine Appearance Cloudy H (CLEAR) Urine pH 8.5 H (5.0-8.0) Ur Specific [place] 1.010 Urine Protein Negative (NEGATIVE) mg/dL Urine Glucose (UA) Negative (NEGATIVE) mg/dL Urine Ketones Negative (NEGATIVE) mg/dL Urine Occult Blood Negative (NEGATIVE) Urine Nitrite Negative (NEGATIVE) Urine Bilirubin Negative (NEGATIVE) Urine Urobilinogen 2.0 H (0.2) EU/dL Ur Leukocyte Esterase Negative (NEGATIVE) Meds: Medications Generic Name Dose Route Start Last Admin Trade Name Freq PRN Reason Stop Dose Admin Sodium Chloride 10 ml 06/14/18 18:21 Saline Flush FLUSH ASDIRECTED PRN Keep Vein Open Discontinued Medications Generic Name Dose Route Start Last Admin Trade Name Freq PRN Reason Stop Dose Admin Ceftriaxone Sodium 2 gm 06/14/18 18:51 06/14/18 19:00 Rocephin IVPUSH 06/14/18 18:52 2 gm STAT ONE Administration Hydromorphone HCl 1 mg 06/14/18 18:23 06/14/18 18:45 Dilaudid IVPUSH 06/14/18 18:24 1 mg ONETIME ONE Administration Hydromorphone HCl 1 mg 06/14/18 20:44 Dilaudid IVPUSH 06/14/18 20:45 ONETIME ONE Sodium Chloride 1,000 mls @ 1,000 mls/hr 06/14/18 18:23 06/14/18 18:42 Normal Saline IV 06/14/18 19:22 1,000 mls/hr .BOLUS ONE Administration Iopamidol 100 ml 06/14/18 19:49 06/14/18 20:08 Isovue-300 (61%) IVPUSH 06/14/18 19:50 100 ml ONETIME ONE Administration - Radiology Interpretation Free Text/Narrative:: CT abdomen and pelvis with contrast obtained and showed ruptured cecal volvulus. There was free air in the abdomen and chest cavity. Departure - Departure Time of Disposition: 20:49 Disposition: DC/Tfer to [facility] 02 Clinical Impression: Rupture of bowel, Cecal volvulus - Discharge Information Referrals: Danelle Ryder MD [Primary Care Provider] - Forms: ED Department Discharge, Interfacility Transfer EMTALA - Problem List Review Problem List Initiated/Reviewed/Updated: Yes - My Orders Last 24 Hours: My Active Orders 06/14/18 18:21 Sodium Chloride 0.9% [Saline Flush] 10 ml FLUSH ASDIRECTED PRN Peripheral IV Insertion Adult [OM.PC] Routine 06/14/18 18:22 Blood Culture x2 Reflex Set [OM.PC] Stat 06/14/18 18:38 CULTURE BLOOD [BC] Stat 06/14/18 18:47 CULTURE BLOOD [BC] Stat 06/14/18 20:30 UA W/MICROSCOPIC [URIN] Stat - Assessment/Plan Last 24 Hours: My Active Orders 06/14/18 18:21 Sodium Chloride 0.9% [Saline Flush] 10 ml FLUSH ASDIRECTED PRN Peripheral IV Insertion Adult [OM.PC] Routine 06/14/18 18:22 Blood Culture x2 Reflex Set [OM.PC] Stat 04/17/19 18:38 CULTURE BLOOD [BC] Stat 06/14/18 18:47 CULTURE BLOOD [BC] Stat 06/14/18 20:30 UA W/MICROSCOPIC [URIN] Stat Plan: [facility] was contacted. I spoke with Dr. Robb who accepts the patient in transfer. He will be transported via [facility] ground ambulance. He can have dilaudid or morphine during transport for pain control. Was given a total of 2 mg of dilaudid during his stay. He was given zosyn 3.375gm IV. Family is present and will be accompanying patient.
[2018-06-14] MEDS ORDERED: cefTRIAXone 2 GM Vial IVPUSH ONE (18:51)
[2018-06-14 19:25] LABS: CHLORIDE,CL 97 mmol/L (98-107); SODIUM,NA 134 mmol/L (136-145)
[2018-06-14 19:26] LABS: ANION GAP 11.1 mmol/L (10-20)
--- NOTE | 2018-06-14 19:31 | CR ---
[id number] RAD/RAD Chest PA or AP 1V EXAM: SINGLE VIEW CHEST. INDICATION: COUGH COMPARISON: CORRELATION IS MADE WITH THE EXAM OF FEBRUARY 16, 2018. FINDINGS: A PICC line is seen on the right. There are bibasilar hypoventilatory changes with small effusions. The cardiomediastinal contour is stable. There appears to be centrilobular emphysema. IMPRESSION: BIBASILAR HYPOVENTILATORY CHANGES. PLEURAL REACTION MOSTLY ON THE LEFT. Darrius Lopez MD 06/14/18 1930 Thank you for allowing us to participate in the care of your patient.
[2018-06-14] MEDS ORDERED: Iopamidol 612 MG/ML 100 ML Bottle IVPUSH ONE (19:49)
--- NOTE | 2018-06-14 20:33 | CT ---
[id number] CT/CT Abdomen Pelvis W IV EXAM: CT Abdomen Pelvis W IV CLINICAL DATA: ABDOMINAL PAIN AND DISTENTION COMPARISON: CORRELATION IS MADE WITH THE EXAM OF AUGUST 26, 2017. FINDINGS: There is a perforated cecal volvulus. Report given to the referring medical care provider at the time of the dictation. The liver and spleen, kidneys and adrenals, pancreas and aorta are unremarkable. The gallbladder is distended. The mesenteric vessels demonstrate normal enhancement. Small renal cysts are seen. There is no aneurysm. There are atheromatous changes. There is thickening of the bladder wall. The prostate is enlarged. It is indeterminate whether or not there is any malignancy involving the prostate or bladder. There is small bowel distention. There are moderate bilateral pleural effusions. There also is a moderate right-sided pneumothorax. IMPRESSION: CECAL VOLVULUS WITH PERFORATED VISCUS. RIGHT-SIDED PNEUMOTHORAX. Darrius Lopez MD 06/14/182031 Thank you for allowing us to participate in the care of your patient.
== END 2018-06-14 21:10 | disposition short-term general hospital (02) ==
LOC: VM.ED 18:11
DX: K56.2 Volvulus (principal); J45.909 Unspecified asthma, uncomplicated; C85.90 Non-Hodgkin lymphoma, unspecified, unspecified site; K21.9 Gastro-esophageal reflux disease without esophagitis; Z88.5 Allergy status to narcotic agent; Z79.899 Other long term (current) drug therapy; Z88.1 Allergy status to other antibiotic agents; Z79.82 Long term (current) use of aspirin
CPT/HCPCS: 36415; 71045; 74177; 80053; 81001; 83605; 83735; 84100; 84443; 85025; 85610; 86140; 87040; 87077; 96361; 96374; 96375; 96376; 99285; J0696; J1170; J7030; Q9967; 87186

== ENCOUNTER 2018-07-01 11:15 | Inpatient (IN) | payer MEDICARE, OTHER ==
[2018-07-01] MEDS ORDERED: Furosemide 40 MG Tab PO PRN (11:48)
--- NOTE | 2018-07-01 11:48 | PCM.HP ---
H&P History of Present Illness - General Date of Service: 07/01/18 Admit Problem/Dx: Admission Diagnosis/Problem Admission Diagnosis/Problem Abscess Source of Information: Patient History Limitations: Reports: No Limitations - History of Present Illness Initial Comments - Free Text/Narative: Mr. Mejía is a 78 yo male with PMH of who is admitted to swing bed for strengthening after an acute admission in [place] 06/23-06/29 for hospital acquired pneumonia with that hospitalization complicated by identification of discitis and a psoas abscess. He had been previously hospitalized in [place] 06/14-06/22 for peritonitis secondary to a ruptured cecal volvulus. He underwent an exploratory laparotomy, right hemicolectomy, peritoneal lavage, and double closure with ABThera device on 06/15 and then exploratory laparotomy and ileostomy creation on 06/16. At the time of admission, he was also noted to have a right pneumothorax which was treated with a chest tube. Postoperatively he did well, progressed with therapies, had pain controlled on PO medications, and had no complications after the chest tube was removed. PT and OT cleared him to return home and he was discharged on 06/22. He returned to the ER within 24 hours for evaluation of a fever, which was felt to be secondary to hospital acquired pneumonia. He was treated with antibiotics and progressively improved. However, he did have ongoing back pain and an MRI was done, revealing discitis complicated by a psoas abscess. Neurosurgery was consulted and recommended conservative therapy with surgery being indicated only as a last resort due to his comorbidities. ID was consulted as well and recommended a 6 week course of ceftriaxone and vancomycin. His hospitalization was complicated by an episode of delirium, felt to be secondary to the combination of starting gabapentin and baclofen on the same day. This resolved with discontinuation of these medications. PT and OT this time recommended strengthening prior to his return home; therefore, he is admitted to swing bed at [facility]. He had some nausea on the way here but did not have significant pain. He would rate his back pain currently at 2/10. He has not been having excessive abdominal pain but has had persistent nausea and his appetite is very poor. He has leg weakness but no leg pain. His ostomy is working well and he is voiding without any issues. He denies any fever or chills. After the car ride to [place], he did cough up a significant amount of sputum. But otherwise he states that his cough has been improving. He has had increased nasal congestion and postnasal drip when he has not been able to do his sinus rinses like usual. He denies any chest pain or shortness of breath. He is tired and states that his mood has alternated between "bitter" and "sarcastic." Overall, he feels he is holding up ok but he is looking forward to getting back home. - Related Data Allergies/Adverse Reactions: Allergies Allergy/AdvReac Type Severity Reaction Status Date / Time doxycycline Allergy Other Verified 06/14/18 18:20 Old Spice Shaving Lotion Allergy Hives Uncoded 06/14/18 18:20 Seasonal Allergies Allergy Other Uncoded 06/14/18 18:20 Home Medications: Home Meds Albuterol [Ventolin HFA] 2 puff IH Q4H PRN 03/06/17 [History] Omeprazole 20 mg PO DAILY 03/06/17 [History] Aspirin [Halfprin] 81 mg PO DAILY 08/05/17 [History] Fluticasone Propionate [Flonase] 1 spray NASBOTH BID 08/05/17 [History] Fluticasone Propionate [Flovent HFA 110 MCG] 2 puff INH BID 08/05/17 [History] Dutasteride [Avodart] 0.5 mg PO DAILY 08/26/17 [History] Furosemide [Lasix] 40 mg PO DAILY PRN 08/26/17 [History] Cetirizine [ZyrTEC] 10 mg PO DAILY 01/16/18 [History] Sulfamethoxazole/Trimethoprim [Bactrim Ds Tablet] 1 each PO MOWEFR 04/08/18 [ History] Cyclobenzaprine [Flexeril] 10 mg PO TID PRN #21 tablet 06/09/18 [Rx] Heparin Sodium [Heparin Lock Flush 100 Units/ML] 300 units IV DAILY 06/09/18 [ History] Acetaminophen/HYDROcodone [[place] 325-10 MG] 1 tab PO Q3H PRN 07/01/18 [History] Acetaminophen/HYDROcodone [[place] 325-10 MG] 1 tab PO Q6HR PRN 07/01/18 [History] Cholecalciferol (Vitamin D3) [Vitamin D] 5,000 unit PO DAILY 07/01/18 [History] Folic Acid 1 mg PO DAILY 07/01/18 [History] Loperamide [Imodium AD] 2 mg PO ASDIRECTED PRN 07/01/18 [History] Ondansetron [Zofran] 4 mg PO TID PRN 07/01/18 [History] Sodium Chloride 0.9% [Normal Saline] 10 ml FLUSH ASDIRECTED PRN 07/01/18 [ History] Vancomycin/0.9 % Sod Chloride [Vanco 1.25 gm/250 ml-0.9% NaCl] 1.25 gm IV DAILY 07/01/18 [History] cefTRIAXone [Rocephin] 2 gm IV DAILY 07/01/18 [History] Past Medical History HEENT History: Reports: Allergic Rhinitis Other HEENT History: amblyopia. paroxysmal positional vertigo of left ear. retinal degeneration. tinnitus Cardiovascular History: Reports: None Respiratory History: Reports: Asthma, SOB Other Respiratory History: dyspnea on exertion. chronic bronchitis. Increased shortness of breath today Gastrointestinal History: Reports: Diverticulosis, GERD, Other (See Below) ( ruptured cecal volvulus) Other Gastrointestinal History: diaphragmatic hernia Genitourinary History: Reports: BPH Musculoskeletal History: Reports: Back Pain, Chronic Other Musculoskeletal History: muscle atrophy Neurological History: Reports: Neuropathy, Peripheral, Other (See Below) Other Neuro History: restless leg syndrome. 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 nasal surgery Respiratory Surgical History: Reports: None Other Respiratory Surgeries/Procedures: Patient has history of lymphoma. Lymph nodes are enlarged and pushing on his lungs states the patient and . GI Surgical History: Reports: Appendectomy, Colostomy, Other (See Below) Other GI Surgeries/Procedures: hemorrhoidectomy ext comp, hemicolectomy. Male Surgical History: Reports: Vasectomy Musculoskeletal Surgical History: Reports: None, Other (See Below) Other Musculoskeletal Surgeries/Procedures:: spinal abscess Oncologic Surgical History: Reports: None Social & Family History - Family History Cardiac: Reports: Hypertension : Reports: Cystic Kidney Disease Oncologic: Reports: Bone, Prostate - Tobacco Use Smoking Status *Q: Former Smoker - Caffeine Use Caffeine Use: Reports: None - Alcohol Use Alcohol Use History: No Alcohol Use in Last Twelve Months: No - Recreational Drug Use Recreational Drug Use: No - Living Situation & Occupation Living situation: Reports: , with Significant Other Occupation: Retired H&P Review of Systems - Review of Systems: Review Of Systems: See Below General: Reports: Weakness, Decreased Appetite. Denies: Fever, Chills, Night Sweats HEENT: Reports: Rhinitis, Post Nasal Drip, Sinus Congestion Pulmonary: Reports: Cough, Sputum. Denies: Shortness of Breath Cardiovascular: Reports: No Symptoms Gastrointestinal: Reports: Abdominal Pain, Anorexia, Nausea. Denies: Vomiting Genitourinary: Reports: No Symptoms Musculoskeletal: Reports: Back Pain Skin: Reports: No Symptoms Psychiatric: Reports: No Symptoms Neurological: Reports: No Symptoms Exam - Exam Exam: See Below - Vital Signs Vital Signs: Last Vital Signs Temp 36.7 C 07/01/18 11:40 Pulse 99 07/01/18 11:40 Resp 18 07/01/18 11:40 BP 143/78 H 07/01/18 11:40 Pulse Ox 94 L 07/01/18 11:40 - Exam General: Alert, Oriented, Cooperative HEENT: Mucosa Moist & [place], Posterior Pharynx Clear, Pupils Equal, Pupils Reactive Neck: Supple, Trachea Midline Lungs: Clear to Auscultation, Normal Respiratory Effort Cardiovascular: Regular Rate, Regular Rhythm, Normal S1, Normal S2 GI/Abdominal Exam: Normal Bowel Sounds, Soft, Non-Tender, No Organomegaly, No Distention, No Mass Extremities: Non-Tender, Pedal Edema (2+ bilaterally) Peripheral Pulses: 2+: Radial (L), Radial (R) Skin: Warm, Dry, Incision (bandage over abdominal incision is clean/dry/intact) Neurological: Reflexes Equal Bilateral, Strength Equal Bilateral, Sensation Intact - Problem List (1) Discitis of lumbar region SNOMED Code(s): 527460383 ICD Code: M46.46 - DISCITIS, UNSPECIFIED, LUMBAR REGION Status: Acute Current Visit: Yes (2) Psoas abscess, right SNOMED Code(s): 504211780 ICD Code: K68.12 - PSOAS MUSCLE ABSCESS Status: Acute Current Visit: Yes (3) Debility SNOMED Code(s): 30810299 ICD Code: R53.81 - OTHER MALAISE Status: Acute Current Visit: Yes (4) Ileostomy in place SNOMED Code(s): 946702738 ICD Code: Z93.2 - ILEOSTOMY STATUS Status: Acute Current Visit: Yes (5) Pancytopenia SNOMED Code(s): 177649117 ICD Code: D61.818 - OTHER PANCYTOPENIA Status: Chronic Current Visit: Yes (6) Marginal zone lymphoma SNOMED Code(s): 692394186, 665711694 ICD Code: C85.80 - OTH TYPES OF NON-HODGKIN LYMPHOMA, UNSPECIFIED SITE Status: Chronic Current Visit: No (7) Malnutrition SNOMED Code(s): 93124990 ICD Code: E46 - UNSPECIFIED PROTEIN-CALORIE MALNUTRITION Status: Acute Current Visit: Yes Qualifiers: Malnutrition type: protein-calorie malnutrition Protein-calorie malnutrition severity: moderate Qualified Code(s): E44.0 - Moderate protein- calorie malnutrition (8) Decreased appetite SNOMED Code(s): 51959651 ICD Code: R63.0 - ANOREXIA Status: Acute Current Visit: Yes (9) Asthma SNOMED Code(s): 610025411 ICD Code: J45.909 - UNSPECIFIED ASTHMA, UNCOMPLICATED Status: Chronic Current Visit: No Qualifiers: Asthma severity: moderate Asthma persistence: persistent Asthma complication type: uncomplicated Qualified Code(s): J45.40 - Moderate persistent asthma, uncomplicated (10) Chronic sinusitis SNOMED Code(s): 72738059 ICD Code: J32.9 - CHRONIC SINUSITIS, UNSPECIFIED Status: Chronic Current Visit: No Qualifiers: Sinusitis location: pansinusitis Qualified Code(s): J32.4 - Chronic pansinusitis (11) BPH (benign prostatic hyperplasia) SNOMED Code(s): 277467259 ICD Code: N40.0 - BENIGN PROSTATIC HYPERPLASIA WITHOUT LOWER URINRY TRACT SYMP Status: Chronic Current Visit: No Qualifiers: Lower urinary tract symptom presence: symptoms absent Qualified Code(s): N40.0 - Benign prostatic hyperplasia without lower urinary tract symptoms (12) GERD (gastroesophageal reflux disease) SNOMED Code(s): 713759824 ICD Code: K21.9 - GASTRO-ESOPHAGEAL REFLUX DISEASE WITHOUT ESOPHAGITIS Status: Chronic Current Visit: No Qualifiers: Esophagitis presence: esophagitis presence not specified Qualified Code(s) : K21.9 - Gastro-esophageal reflux disease without esophagitis Problem List Initiated/Reviewed/Updated: Yes Orders Last 24hrs: Active Orders 24 hr Category Date Time Status Admission Status [Patient Status] [ADT] Routine ADT 07/01/18 10:07 Active Notify Provider Vital Signs [RC] ASDIRECTED Care 07/01/18 11:46 Ordered Oxygen Therapy [RC] PRN Care 07/01/18 11:46 Ordered Up With Assistance [RC] ASDIRECTED Care 07/01/18 11:46 Ordered VTE/DVT Education [RC] PER UNIT ROUTINE Care 07/01/18 11:46 Ordered Vital Signs [RC] PER UNIT ROUTINE Care 07/01/18 11:46 Ordered OT Evaluation and Treatment [CONS] Routine Cons 07/01/18 11:46 Ordered PT Evaluation and Treatment [CONS] Routine Cons 07/01/18 11:46 Ordered Regular Diet [DIET] Diet 07/01/18 Lunch Ordered CULTURE MRSA SURVEY [RM] Routine Lab 07/01/18 11:45 Ordered Resuscitation Status Routine Resus Stat 07/01/18 11:46 Ordered Assessment/Plan Comment:: 78 yo male admitted to swing bed for strengthening after 2 prolonged hospitalizations in the past month. He will also be getting IV antibiotics for his discitis as well. #1 Discitis of lumbar region #2 Psoas abscess, right - IV ceftriaxone and vancomycin for 6 weeks. - No follow-up currently scheduled with neurosurgery or ID but anticipate both will be needed. Will watch for those to get scheduled. - Also no instructions from [place] regarding lab monitoring on the IV antibiotics but anticipate that will be needed/coming as well. - He will need the TLSO brace on whenever out of bed until he sees neurosurgery in follow-up. - Continue current pain regimen as per hospital discharge list but will work to wean narcotics as able. #3 Debility - Secondary to extensive time in the hospital over the past month as well as his spinal infection. - PT/OT consults ordered. #[address] - He is scheduled for follow-up with general surgery next week related to this. - Currently functioning well and without complication. 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 - His oncologist has been following along. - Patient's asks about doing IVIG and I am not sure they would be starting that now based on the above issues. She will touch base with his oncologist again. #7 Malnutrition #8 Decreased appetite - Hopefully his appetite will improve now that he is in a familiar environment, especially when he gets up and working with PT. - Will monitor closely. - He has zofran ordered PRN. - He will be on a regular diet. #9 Asthma #10 Chronic Sinusitis - He has recovered nicely from his pneumonia. - As soon as he is able, I do feel he would benefit from resuming his sinus rinses. - Otherwise, continue home medications. #11 BPH #12 GERD - Home medications continued. Patient will be admitted to swing bed for strengthening and will also be getting IV antibiotics. Unclear how long he will need rehab before returning home but will look to PT guidance on this. Continue medications as per hospital discharge list. He will not need VTE prophylaxis as he will be up ad drake. Code status is full - discussed on admission.
[2018-07-01] MEDS ORDERED: Loperamide 2 MG Cap PO PRN (12:08)
[2018-07-01] MEDS: cefTRIAXone 2 GM Vial IV SCH (14:15)
[2018-07-01] MEDS ORDERED: Albuterol 0.083% 2.5 MG/3 ML Neb Soln INH PRN (15:00)
[2018-07-01] MEDS: Sodium Chloride 0.9% 10 ML Syringe FLUSH PRN ×2 (15:51→15:52)
[2018-07-01] MEDS: Heparin Sodium 100 Units/ML 3 ML Syringe IVPUSH SCH (15:53)
[2018-07-01] MEDS: Acetaminophen 500 MG Tab PO PRN (17:42)
[2018-07-01] MEDS: Acetaminophen/HYDROcodone 325-10 MG Tab PO PRN ×2 (18:06→23:20)
[2018-07-01] MEDS: Fluticasone Propionate Nasal Spray 16 GM Bottle NASBOTH SCH (21:52)
[2018-07-02] MEDS: Omeprazole 20 MG Cap.CR PO SCH (06:50)
[2018-07-02] MEDS: Acetaminophen/HYDROcodone 325-10 MG Tab PO PRN ×3 (06:50→23:16)
[2018-07-02] MEDS: Mometasone Furoate Powder 220 MCG/Puff 14 Dose Inhaler INH SCH (07:44)
[2018-07-02] MEDS: Aspirin 81 MG Tab.EC PO SCH (07:45)
[2018-07-02] MEDS: Ergocalciferol (Vitamin D2) 50,000 Unit Cap PO SCH (07:45)
[2018-07-02] MEDS: Loratadine 10 MG Tab PO SCH (07:45)
[2018-07-02] MEDS: Finasteride 5 MG Tab PO SCH (07:45)
[2018-07-02] MEDS: Fluticasone Propionate Nasal Spray 16 GM Bottle NASBOTH SCH ×2 (07:45→19:59)
[2018-07-02] MEDS: Folic Acid 1 MG Tab PO SCH (07:45)
[2018-07-02] MEDS ORDERED: Heparin Sodium 100 Units/ML 3 ML Syringe IVPUSH SCH (08:00)
[2018-07-02] MEDS: Ondansetron 4 MG Tab.DIS PO PRN (12:57)
[2018-07-02] MEDS: cefTRIAXone 2 GM Vial IV SCH (14:18)
[2018-07-02] MEDS: Heparin Sodium 100 Units/ML 3 ML Syringe IVPUSH SCH (15:52)
[2018-07-03] MEDS: Omeprazole 20 MG Cap.CR PO SCH ×2 (05:28→08:12)
[2018-07-03] MEDS: Cyclobenzaprine 10 MG Tab PO PRN ×3 (05:28→23:51)
[2018-07-03] MEDS: Mometasone Furoate Powder 220 MCG/Puff 14 Dose Inhaler INH SCH (08:11)
[2018-07-03] MEDS: Ergocalciferol (Vitamin D2) 50,000 Unit Cap PO SCH (08:12)
[2018-07-03] MEDS: Finasteride 5 MG Tab PO SCH (08:12)
[2018-07-03] MEDS: Fluticasone Propionate Nasal Spray 16 GM Bottle NASBOTH SCH ×2 (08:12→20:17)
[2018-07-03] MEDS: Loratadine 10 MG Tab PO SCH (08:13)
[2018-07-03] MEDS: Sulfamethoxazole/Trimethoprim 800-160 MG Tab PO SCH (08:13)
[2018-07-03] MEDS: Aspirin 81 MG Tab.EC PO SCH (08:13)
[2018-07-03] MEDS: Folic Acid 1 MG Tab PO SCH (08:13)
[2018-07-03] MEDS: cefTRIAXone 2 GM Vial IV SCH (14:23)
[2018-07-03] MEDS: Heparin Sodium 100 Units/ML 3 ML Syringe IVPUSH SCH (16:45)
[2018-07-03] MEDS: Acetaminophen/HYDROcodone 325-10 MG Tab PO PRN (17:32)
[2018-07-03] MEDS: Sodium Chloride 0.9% 10 ML Syringe FLUSH PRN (23:08)
[2018-07-04] MEDS: Heparin Sodium 100 Units/ML 3 ML Syringe IVPUSH SCH ×2 (00:57→12:33)
[2018-07-04] MEDS: Acetaminophen/HYDROcodone 325-10 MG Tab PO PRN ×2 (03:04→09:28)
[2018-07-04] MEDS: Omeprazole 20 MG Cap.CR PO SCH ×2 (05:17→06:27)
[2018-07-04] MEDS: Finasteride 5 MG Tab PO SCH (08:05)
[2018-07-04] MEDS: Loratadine 10 MG Tab PO SCH (08:05)
[2018-07-04] MEDS: Folic Acid 1 MG Tab PO SCH (08:05)
[2018-07-04] MEDS: Fluticasone Propionate Nasal Spray 16 GM Bottle NASBOTH SCH ×2 (08:05→19:48)
[2018-07-04] MEDS: Aspirin 81 MG Tab.EC PO SCH (08:05)
[2018-07-04] MEDS: Mometasone Furoate Powder 220 MCG/Puff 14 Dose Inhaler INH SCH (08:05)
[2018-07-04] MEDS: cefTRIAXone 2 GM Vial IV SCH (12:32)
[2018-07-05] MEDS: Heparin Sodium 100 Units/ML 3 ML Syringe IVPUSH SCH ×3 (00:07→23:45)
[2018-07-05] MEDS: Acetaminophen/HYDROcodone 325-10 MG Tab PO PRN ×2 (01:49→10:57)
[2018-07-05] MEDS: Omeprazole 20 MG Cap.CR PO SCH ×2 (04:55→06:25)
[2018-07-05] MEDS: Finasteride 5 MG Tab PO SCH (08:32)
[2018-07-05] MEDS: Folic Acid 1 MG Tab PO SCH (08:32)
[2018-07-05] MEDS: Loratadine 10 MG Tab PO SCH (08:32)
[2018-07-05] MEDS: Sulfamethoxazole/Trimethoprim 800-160 MG Tab PO SCH (08:32)
[2018-07-05] MEDS: Aspirin 81 MG Tab.EC PO SCH (08:33)
[2018-07-05] MEDS: Fluticasone Propionate Nasal Spray 16 GM Bottle NASBOTH SCH ×2 (08:33→19:24)
[2018-07-05] MEDS: Mometasone Furoate Powder 220 MCG/Puff 14 Dose Inhaler INH SCH (08:34)
[2018-07-05] MEDS: Cyclobenzaprine 10 MG Tab PO PRN (13:25)
[2018-07-05] MEDS: cefTRIAXone 2 GM Vial IV SCH (13:58)
[2018-07-05] MEDS: Sodium Chloride 0.9% 10 ML Syringe FLUSH PRN (22:36)
[2018-07-06] MEDS: Omeprazole 20 MG Cap.CR PO SCH (06:40)
[2018-07-06] MEDS: Folic Acid 1 MG Tab PO SCH (07:41)
[2018-07-06] MEDS: Aspirin 81 MG Tab.EC PO SCH (07:41)
[2018-07-06] MEDS: Cyclobenzaprine 10 MG Tab PO PRN ×2 (07:41→19:40)
[2018-07-06] MEDS: Finasteride 5 MG Tab PO SCH (07:42)
[2018-07-06] MEDS: Loratadine 10 MG Tab PO SCH (07:42)
[2018-07-06] MEDS: Fluticasone Propionate Nasal Spray 16 GM Bottle NASBOTH SCH ×2 (07:47→19:39)
[2018-07-06] MEDS: Mometasone Furoate Powder 220 MCG/Puff 14 Dose Inhaler INH SCH (07:48)
--- NOTE | 2018-07-06 08:38 | PCM.SN ---
- Free Text/Narrative Note: Patient seen this morning as nursing notes he started complaining of chest pain overnight. Pain is on the left side when he moves, turns, reaches, or takes a deep breath. He has been able to pinpoint it by palpating. He is not short of breath. Tenderness to palpation in the left intercostal space between ribs 7-8. This reproduces his pain completely. Lungs CTAB. Heart RRR with normal S1 and S2. No murmur. History and exam both consistent with chest wall pain. He just go a dose of flexeril and we will see how this works for him. No further evaluation at this time. Did discuss his pain management as he has not been apt to take the norco but is having a lot of pain then, not able to sit up or participate fully with PT. He is not taking this as he notes his is concerned about side effects. She has worried that this is the cause for his decreased appetite. She notes that his personality has been different since he has been on this. The patient does not otherwise feel he has had side effects. Discussed the option to decrease the dose to the 325/5 and he is more agreeable to taking this then. Order will be updated. He is not moving as well and as much as had been anticipated. Therefore, will start lovenox for VTE prophylaxis and reassess need for this on a weekly basis.
[2018-07-06] MEDS: Acetaminophen/HYDROcodone 325-10 MG Tab PO PRN (08:40)
[2018-07-06] MEDS: Enoxaparin 40 MG/0.4 ML Syringe SUBCUT SCH (08:56)
[2018-07-06] MEDS: cefTRIAXone 2 GM Vial IV SCH (12:24)
[2018-07-06] MEDS: Acetaminophen/HYDROcodone 325-5 MG Tab PO PRN ×2 (14:58→19:39)
[2018-07-06] MEDS: Heparin Sodium 100 Units/ML 3 ML Syringe IVPUSH SCH (16:04)
[2018-07-07] MEDS: Omeprazole 20 MG Cap.CR PO SCH (06:20)
[2018-07-07] MEDS: cefTRIAXone 2 GM Vial IV SCH (09:09)
[2018-07-07] MEDS: Sulfamethoxazole/Trimethoprim 800-160 MG Tab PO SCH (09:10)
[2018-07-07] MEDS: Finasteride 5 MG Tab PO SCH (09:10)
[2018-07-07] MEDS: Aspirin 81 MG Tab.EC PO SCH (09:10)
[2018-07-07] MEDS: Enoxaparin 40 MG/0.4 ML Syringe SUBCUT SCH (09:10)
[2018-07-07] MEDS: Loratadine 10 MG Tab PO SCH (09:10)
[2018-07-07] MEDS: Folic Acid 1 MG Tab PO SCH (09:10)
[2018-07-07] MEDS: Cyclobenzaprine 10 MG Tab PO PRN ×2 (09:10→20:08)
[2018-07-07] MEDS: Fluticasone Propionate Nasal Spray 16 GM Bottle NASBOTH SCH ×2 (09:11→20:08)
[2018-07-07] MEDS: Mometasone Furoate Powder 220 MCG/Puff 14 Dose Inhaler INH SCH (09:11)
[2018-07-07] MEDS: Sodium Chloride 0.9% 10 ML Syringe FLUSH PRN ×2 (09:11→20:11)
[2018-07-07] MEDS: Acetaminophen/HYDROcodone 325-5 MG Tab PO PRN ×3 (09:41→20:08)
[2018-07-07] MEDS: Heparin Sodium 100 Units/ML 3 ML Syringe IVPUSH SCH (09:41)
[2018-07-08] MEDS: Omeprazole 20 MG Cap.CR PO SCH (06:14)
[2018-07-08] MEDS: Mometasone Furoate Powder 220 MCG/Puff 14 Dose Inhaler INH SCH (08:21)
[2018-07-08] MEDS: Loratadine 10 MG Tab PO SCH (08:21)
[2018-07-08] MEDS: Finasteride 5 MG Tab PO SCH (08:22)
[2018-07-08] MEDS: Aspirin 81 MG Tab.EC PO SCH (08:22)
[2018-07-08] MEDS: Acetaminophen/HYDROcodone 325-5 MG Tab PO PRN ×3 (08:23→20:02)
[2018-07-08] MEDS: Folic Acid 1 MG Tab PO SCH (08:23)
[2018-07-08] MEDS: Enoxaparin 40 MG/0.4 ML Syringe SUBCUT SCH (08:24)
[2018-07-08] MEDS: Fluticasone Propionate Nasal Spray 16 GM Bottle NASBOTH SCH ×2 (08:24→20:03)
[2018-07-08] MEDS: cefTRIAXone 2 GM Vial IV SCH (08:32)
[2018-07-08] MEDS: Sodium Chloride 0.9% 10 ML Syringe IV SCH ×2 (08:32→20:02)
[2018-07-08] MEDS ORDERED: Vancomycin 500 MG SDV ONE (08:55)
[2018-07-08] MEDS: Heparin Sodium 100 Units/ML 3 ML Syringe IVPUSH SCH (10:50)
[2018-07-08] MEDS: Cyclobenzaprine 10 MG Tab PO PRN (20:02)
[2018-07-08] MEDS: Ondansetron 4 MG Tab.DIS PO PRN (20:02)
[2018-07-09] MEDS: Omeprazole 20 MG Cap.CR PO SCH (06:23)
[2018-07-09] MEDS: Cyclobenzaprine 10 MG Tab PO PRN ×3 (06:44→21:20)
[2018-07-09] MEDS: Fluticasone Propionate Nasal Spray 16 GM Bottle NASBOTH SCH ×2 (08:39→21:21)
[2018-07-09] MEDS: Mometasone Furoate Powder 220 MCG/Puff 14 Dose Inhaler INH SCH (08:40)
[2018-07-09] MEDS: Folic Acid 1 MG Tab PO SCH (08:42)
[2018-07-09] MEDS: Loratadine 10 MG Tab PO SCH (08:42)
[2018-07-09] MEDS: Finasteride 5 MG Tab PO SCH (08:42)
[2018-07-09] MEDS: Aspirin 81 MG Tab.EC PO SCH (08:42)
[2018-07-09] MEDS: Acetaminophen/HYDROcodone 325-5 MG Tab PO PRN ×3 (08:43→21:20)
[2018-07-09] MEDS: Enoxaparin 40 MG/0.4 ML Syringe SUBCUT SCH (08:46)
[2018-07-09] MEDS: Sodium Chloride 0.9% 10 ML Syringe IV SCH ×2 (08:54→21:20)
[2018-07-09] MEDS: cefTRIAXone 2 GM Vial IV SCH (08:54)
[2018-07-09] MEDS: Heparin Sodium 100 Units/ML 3 ML Syringe IVPUSH SCH (11:43)
[2018-07-09] MEDS: guaiFENesin 100 MG/5 ML Soln 10 ML UD Cup PO PRN (18:28)
[2018-07-10] MEDS: Omeprazole 20 MG Cap.CR PO SCH (06:29)
[2018-07-10] MEDS: Enoxaparin 40 MG/0.4 ML Syringe SUBCUT SCH (08:18)
[2018-07-10] MEDS: Sodium Chloride 0.9% 10 ML Syringe IV SCH ×2 (08:18→21:15)
[2018-07-10] MEDS: cefTRIAXone 2 GM Vial IV SCH (08:18)
[2018-07-10] MEDS: Sodium Chloride 0.9% 10 ML Syringe FLUSH PRN ×2 (08:19→12:20)
[2018-07-10] MEDS: Loratadine 10 MG Tab PO SCH (08:19)
[2018-07-10] MEDS: Aspirin 81 MG Tab.EC PO SCH (08:19)
[2018-07-10] MEDS: Acetaminophen/HYDROcodone 325-5 MG Tab PO PRN ×3 (08:19→21:15)
[2018-07-10] MEDS: Ergocalciferol (Vitamin D2) 50,000 Unit Cap PO SCH (08:19)
[2018-07-10] MEDS: Cyclobenzaprine 10 MG Tab PO PRN ×3 (08:19→21:15)
[2018-07-10] MEDS: Finasteride 5 MG Tab PO SCH (08:19)
[2018-07-10] MEDS: Folic Acid 1 MG Tab PO SCH (08:19)
[2018-07-10] MEDS: Sulfamethoxazole/Trimethoprim 800-160 MG Tab PO SCH (08:19)
[2018-07-10] MEDS: Fluticasone Propionate Nasal Spray 16 GM Bottle NASBOTH SCH ×2 (08:20→21:14)
[2018-07-10] MEDS: Mometasone Furoate Powder 220 MCG/Puff 14 Dose Inhaler INH SCH (08:20)
[2018-07-10] MEDS ORDERED: Alteplase 2 MG Vial IVPUSH ONE (10:30)
[2018-07-10] MEDS: Heparin Sodium 100 Units/ML 3 ML Syringe IVPUSH SCH (12:20)
[2018-07-11] MEDS: Omeprazole 20 MG Cap.CR PO SCH (06:24)
[2018-07-11] MEDS: Acetaminophen/HYDROcodone 325-5 MG Tab PO PRN ×3 (08:08→21:35)
[2018-07-11] MEDS: Loratadine 10 MG Tab PO SCH (08:08)
[2018-07-11] MEDS: Finasteride 5 MG Tab PO SCH (08:08)
[2018-07-11] MEDS: Cyclobenzaprine 10 MG Tab PO PRN ×3 (08:08→21:36)
[2018-07-11] MEDS: Enoxaparin 40 MG/0.4 ML Syringe SUBCUT SCH (08:08)
[2018-07-11] MEDS: Folic Acid 1 MG Tab PO SCH (08:08)
[2018-07-11] MEDS: cefTRIAXone 2 GM Vial IV SCH (08:08)
[2018-07-11] MEDS: Aspirin 81 MG Tab.EC PO SCH (08:08)
[2018-07-11] MEDS: Sodium Chloride 0.9% 10 ML Syringe IV SCH ×2 (08:09→21:35)
[2018-07-11] MEDS: Fluticasone Propionate Nasal Spray 16 GM Bottle NASBOTH SCH ×2 (08:09→21:35)
[2018-07-11] MEDS: Mometasone Furoate Powder 220 MCG/Puff 14 Dose Inhaler INH SCH (08:09)
[2018-07-11] MEDS: Heparin Sodium 100 Units/ML 3 ML Syringe IVPUSH SCH (10:37)
[2018-07-12] MEDS: Omeprazole 20 MG Cap.CR PO SCH (06:28)
[2018-07-12] MEDS: Sulfamethoxazole/Trimethoprim 800-160 MG Tab PO SCH ×2 (07:39→08:43)
[2018-07-12] MEDS: Cyclobenzaprine 10 MG Tab PO PRN (07:39)
[2018-07-12] MEDS: Acetaminophen/HYDROcodone 325-5 MG Tab PO PRN ×2 (07:39→18:02)
[2018-07-12] MEDS: Loratadine 10 MG Tab PO SCH (07:39)
[2018-07-12] MEDS: Enoxaparin 40 MG/0.4 ML Syringe SUBCUT SCH (07:39)
[2018-07-12] MEDS: Mometasone Furoate Powder 220 MCG/Puff 14 Dose Inhaler INH SCH (07:40)
[2018-07-12] MEDS: Aspirin 81 MG Tab.EC PO SCH (07:40)
[2018-07-12] MEDS: Folic Acid 1 MG Tab PO SCH (07:40)
[2018-07-12] MEDS: Finasteride 5 MG Tab PO SCH (07:40)
[2018-07-12] MEDS: Sodium Chloride 0.9% 10 ML Syringe IV SCH ×2 (07:40→21:09)
[2018-07-12] MEDS: Fluticasone Propionate Nasal Spray 16 GM Bottle NASBOTH SCH ×2 (07:40→21:06)
[2018-07-12] MEDS: Sodium Chloride 0.9% 10 ML Syringe FLUSH PRN ×2 (09:04→10:56)
[2018-07-12] MEDS: cefTRIAXone 2 GM Vial IV SCH (09:04)
[2018-07-12] MEDS: Heparin Sodium 100 Units/ML 3 ML Syringe IVPUSH SCH (10:55)
[2018-07-12] MEDS: Ondansetron 4 MG Tab.DIS PO PRN (17:22)
[2018-07-13] MEDS: Omeprazole 20 MG Cap.CR PO SCH (06:16)
[2018-07-13] MEDS: Enoxaparin 40 MG/0.4 ML Syringe SUBCUT SCH (07:51)
[2018-07-13] MEDS: Fluticasone Propionate Nasal Spray 16 GM Bottle NASBOTH SCH ×2 (07:52→21:12)
[2018-07-13] MEDS: Mometasone Furoate Powder 220 MCG/Puff 14 Dose Inhaler INH SCH (07:52)
[2018-07-13] MEDS: Finasteride 5 MG Tab PO SCH (07:53)
[2018-07-13] MEDS: Loratadine 10 MG Tab PO SCH (07:53)
[2018-07-13] MEDS: Folic Acid 1 MG Tab PO SCH (07:53)
[2018-07-13] MEDS: Acetaminophen/HYDROcodone 325-5 MG Tab PO PRN ×3 (07:53→23:24)
[2018-07-13] MEDS: Aspirin 81 MG Tab.EC PO SCH (07:54)
[2018-07-13] MEDS: Sodium Chloride 0.9% 10 ML Syringe IV SCH ×2 (07:54→23:25)
[2018-07-13] MEDS: cefTRIAXone 2 GM Vial IV SCH (09:22)
[2018-07-13] MEDS: Heparin Sodium 100 Units/ML 3 ML Syringe IVPUSH SCH (11:29)
[2018-07-14] MEDS: Omeprazole 20 MG Cap.CR PO SCH (06:01)
[2018-07-14] MEDS: Enoxaparin 40 MG/0.4 ML Syringe SUBCUT SCH (08:06)
[2018-07-14] MEDS: Sodium Chloride 0.9% 10 ML Syringe FLUSH PRN ×2 (08:06→17:40)
[2018-07-14] MEDS: Aspirin 81 MG Tab.EC PO SCH (08:07)
[2018-07-14] MEDS: Heparin Sodium 100 Units/ML 3 ML Syringe IVPUSH PRN ×2 (08:07→17:40)
[2018-07-14] MEDS: Finasteride 5 MG Tab PO SCH (08:07)
[2018-07-14] MEDS: Acetaminophen/HYDROcodone 325-5 MG Tab PO PRN (08:07)
[2018-07-14] MEDS: Loratadine 10 MG Tab PO SCH (08:07)
[2018-07-14] MEDS: Folic Acid 1 MG Tab PO SCH (08:07)
[2018-07-14] MEDS: Fluticasone Propionate Nasal Spray 16 GM Bottle NASBOTH SCH ×2 (08:09→22:02)
[2018-07-14] MEDS: Mometasone Furoate Powder 220 MCG/Puff 14 Dose Inhaler INH SCH (08:10)
[2018-07-14 08:22] LABS: CHLORIDE,CL 101 mmol/L (98-107); SODIUM,NA 137 mmol/L (136-145)
[2018-07-14 08:25] LABS: ANION GAP 12.7 mmol/L (10-20)
[2018-07-14] MEDS: Sodium Chloride 0.9% 10 ML Syringe IV SCH ×2 (10:02→21:55)
[2018-07-14] MEDS: Sulfamethoxazole/Trimethoprim 800-160 MG Tab PO SCH (10:02)
[2018-07-14] MEDS: cefTRIAXone 2 GM Vial IV SCH (10:02)
[2018-07-14] MEDS: Heparin Sodium 100 Units/ML 3 ML Syringe IVPUSH SCH (10:04)
[2018-07-14] MEDS ORDERED: Sodium Chloride 0.9% 500 ML IV ONE (16:01)
[2018-07-14] MEDS: Magnesium Chloride 64 MG Tab.ER PO SCH (22:02)
[2018-07-14] MEDS: Ondansetron 4 MG Tab.DIS PO PRN (22:02)
[2018-07-14] MEDS: Ketorolac 10 MG Tab PO PRN (22:03)
[2018-07-15] MEDS: Acetaminophen/HYDROcodone 325-5 MG Tab PO PRN (05:44)
[2018-07-15] MEDS: Omeprazole 20 MG Cap.CR PO SCH (06:00)
[2018-07-15] MEDS: Folic Acid 1 MG Tab PO SCH (08:12)
[2018-07-15] MEDS: Magnesium Chloride 64 MG Tab.ER PO SCH ×2 (08:12→20:20)
[2018-07-15] MEDS: Sodium Chloride 0.9% 10 ML Syringe IV SCH ×3 (08:12→20:24)
[2018-07-15] MEDS: cefTRIAXone 2 GM Vial IV SCH (08:12)
[2018-07-15] MEDS: Aspirin 81 MG Tab.EC PO SCH (08:12)
[2018-07-15] MEDS: Loratadine 10 MG Tab PO SCH (08:12)
[2018-07-15] MEDS: Enoxaparin 40 MG/0.4 ML Syringe SUBCUT SCH (08:12)
[2018-07-15] MEDS: Fluticasone Propionate Nasal Spray 16 GM Bottle NASBOTH SCH ×2 (08:13→20:18)
[2018-07-15] MEDS: Finasteride 5 MG Tab PO SCH (08:14)
[2018-07-15] MEDS: Mometasone Furoate Powder 220 MCG/Puff 14 Dose Inhaler INH SCH (08:14)
[2018-07-15] MEDS: Ketorolac 10 MG Tab PO PRN ×2 (09:19→20:19)
[2018-07-15] MEDS: Acetaminophen 500 MG Tab PO PRN ×2 (09:20→20:20)
[2018-07-15] MEDS: Heparin Sodium 100 Units/ML 3 ML Syringe IVPUSH SCH (09:22)
[2018-07-16] MEDS: guaiFENesin 100 MG/5 ML Soln 10 ML UD Cup PO PRN (03:27)
[2018-07-16] MEDS: Acetaminophen/HYDROcodone 325-5 MG Tab PO PRN ×3 (05:34→22:33)
[2018-07-16] MEDS: Omeprazole 20 MG Cap.CR PO SCH (06:06)
[2018-07-16] MEDS: Sodium Chloride 0.9% 10 ML Syringe IV SCH ×2 (08:16→20:03)
[2018-07-16] MEDS: cefTRIAXone 2 GM Vial IV SCH (08:16)
[2018-07-16] MEDS: Enoxaparin 40 MG/0.4 ML Syringe SUBCUT SCH (08:17)
[2018-07-16] MEDS: Aspirin 81 MG Tab.EC PO SCH (08:18)
[2018-07-16] MEDS: Loratadine 10 MG Tab PO SCH (08:18)
[2018-07-16] MEDS: Magnesium Chloride 64 MG Tab.ER PO SCH ×2 (08:18→20:03)
[2018-07-16] MEDS: Finasteride 5 MG Tab PO SCH (08:18)
[2018-07-16] MEDS: Folic Acid 1 MG Tab PO SCH (08:18)
[2018-07-16] MEDS: Mometasone Furoate Powder 220 MCG/Puff 14 Dose Inhaler INH SCH (08:19)
[2018-07-16] MEDS: Fluticasone Propionate Nasal Spray 16 GM Bottle NASBOTH SCH ×2 (08:19→20:02)
[2018-07-16] MEDS: Heparin Sodium 100 Units/ML 3 ML Syringe IVPUSH SCH (09:34)
[2018-07-16] MEDS: Ketorolac 10 MG Tab PO PRN (14:34)
[2018-07-16] MEDS: Acetaminophen 500 MG Tab PO PRN (14:35)
[2018-07-17] MEDS: Ketorolac 10 MG Tab PO PRN ×2 (06:22→12:21)
[2018-07-17] MEDS: Omeprazole 20 MG Cap.CR PO SCH (06:23)
[2018-07-17] MEDS: Acetaminophen 500 MG Tab PO PRN (06:24)
[2018-07-17] MEDS: Sodium Chloride 0.9% 10 ML Syringe FLUSH PRN (06:25)
[2018-07-17] MEDS: Heparin Sodium 100 Units/ML 3 ML Syringe IVPUSH PRN (06:25)
[2018-07-17] MEDS: Fluticasone Propionate Nasal Spray 16 GM Bottle NASBOTH SCH ×2 (08:06→20:05)
[2018-07-17] MEDS: Magnesium Chloride 64 MG Tab.ER PO SCH ×2 (08:06→20:06)
[2018-07-17] MEDS: Sulfamethoxazole/Trimethoprim 800-160 MG Tab PO SCH (08:06)
[2018-07-17] MEDS: Folic Acid 1 MG Tab PO SCH (08:06)
[2018-07-17] MEDS: Mometasone Furoate Powder 220 MCG/Puff 14 Dose Inhaler INH SCH (08:06)
[2018-07-17] MEDS: Aspirin 81 MG Tab.EC PO SCH (08:06)
[2018-07-17] MEDS: Finasteride 5 MG Tab PO SCH (08:06)
[2018-07-17] MEDS: Loratadine 10 MG Tab PO SCH (08:06)
[2018-07-17] MEDS: Enoxaparin 40 MG/0.4 ML Syringe SUBCUT SCH (08:07)
[2018-07-17] MEDS: Sodium Chloride 0.9% 10 ML Syringe IV SCH (08:07)
[2018-07-17] MEDS: cefTRIAXone 2 GM Vial IV SCH (08:07)
[2018-07-17] MEDS: Ergocalciferol (Vitamin D2) 50,000 Unit Cap PO SCH (08:45)
[2018-07-17] MEDS: Heparin Sodium 100 Units/ML 3 ML Syringe IVPUSH SCH (09:49)
[2018-07-17] MEDS: Ondansetron 4 MG Tab.DIS PO PRN (11:51)
[2018-07-17] MEDS: prednisoLONE Acetate 1% Ophth Susp 5 ML Bottle EYERT PRN (15:52)
[2018-07-17] MEDS: Acetaminophen/HYDROcodone 325-5 MG Tab PO PRN (20:07)
[2018-07-18] MEDS: Ketorolac 10 MG Tab PO PRN (00:55)
[2018-07-18] MEDS: Omeprazole 20 MG Cap.CR PO SCH (06:16)
[2018-07-18] MEDS: Sodium Chloride 0.9% 10 ML Syringe IV SCH ×3 (07:34→19:53)
[2018-07-18] MEDS: prednisoLONE Acetate 1% Ophth Susp 5 ML Bottle EYERT PRN (08:07)
[2018-07-18] MEDS: Fluticasone Propionate Nasal Spray 16 GM Bottle NASBOTH SCH ×2 (08:07→19:52)
[2018-07-18] MEDS: Mometasone Furoate Powder 220 MCG/Puff 14 Dose Inhaler INH SCH (08:07)
[2018-07-18] MEDS: Aspirin 81 MG Tab.EC PO SCH (08:08)
[2018-07-18] MEDS: Enoxaparin 40 MG/0.4 ML Syringe SUBCUT SCH (08:08)
[2018-07-18] MEDS: Finasteride 5 MG Tab PO SCH (08:08)
[2018-07-18] MEDS: Magnesium Chloride 64 MG Tab.ER PO SCH ×2 (08:08→19:52)
[2018-07-18] MEDS: Loratadine 10 MG Tab PO SCH (08:09)
[2018-07-18] MEDS: cefTRIAXone 2 GM Vial IV SCH (08:09)
[2018-07-18] MEDS: Folic Acid 1 MG Tab PO SCH (08:09)
[2018-07-18] MEDS: Acetaminophen/HYDROcodone 325-5 MG Tab PO PRN ×3 (08:28→20:46)
--- NOTE | 2018-07-18 09:03 | PCM.SN ---
- Free Text/Narrative Note: Patient upset regarding his medications this morning. Wondering why he cannot have toradol with the norco before PT. Toradol started over the weekend but no notes as to why. He has noted benefit from this. Discussed limitations on toradol as far as number of days/doses in a row, which he has reached. Would not recommend continuing this and he understands. He will see how PT goes today and we can consider addition of another NSAID; however, concern would be for potential GI bleed in setting of being on lovenox and having a recent GI surgery. Per his request, will d/c his BPH medication as well.
[2018-07-18] MEDS: Heparin Sodium 100 Units/ML 3 ML Syringe IVPUSH SCH (11:40)
[2018-07-18] MEDS: Acetaminophen 500 MG Tab PO PRN (13:03)
[2018-07-18] MEDS: Cyclobenzaprine 10 MG Tab PO PRN (13:03)
[2018-07-19] MEDS: Omeprazole 20 MG Cap.CR PO SCH (05:59)
[2018-07-19] MEDS: Acetaminophen/HYDROcodone 325-5 MG Tab PO PRN ×2 (05:59→11:18)
[2018-07-19 06:06] VITALS: BP 105/56
[2018-07-19] MEDS: Enoxaparin 40 MG/0.4 ML Syringe SUBCUT SCH (08:26)
[2018-07-19] MEDS: prednisoLONE Acetate 1% Ophth Susp 5 ML Bottle EYERT PRN (08:26)
[2018-07-19] MEDS: Fluticasone Propionate Nasal Spray 16 GM Bottle NASBOTH SCH (08:27)
[2018-07-19] MEDS: Mometasone Furoate Powder 220 MCG/Puff 14 Dose Inhaler INH SCH (08:27)
[2018-07-19] MEDS: Magnesium Chloride 64 MG Tab.ER PO SCH (08:28)
[2018-07-19] MEDS: Loratadine 10 MG Tab PO SCH (08:28)
[2018-07-19] MEDS: Sulfamethoxazole/Trimethoprim 800-160 MG Tab PO SCH (08:28)
[2018-07-19] MEDS: Sodium Chloride 0.9% 10 ML Syringe IV SCH (08:28)
[2018-07-19] MEDS: Folic Acid 1 MG Tab PO SCH (08:29)
[2018-07-19] MEDS: Aspirin 81 MG Tab.EC PO SCH (08:29)
--- NOTE | 2018-07-19 08:38 | PCM.DCSUM1 ---
Discharge Summary - Hospital Course Brief History: Mr. Mejía is a 78 yo male who was admitted to [facility] for rehabilitation following a hospitalization in [place] for pneumonia and discitis/ psoas abscess. - Discharge Data Discharge Date: 07/19/18 Discharge Disposition: Home, Self-Care 01 Condition: Good - Discharge Diagnosis/Problem(s) (1) Discitis of lumbar region SNOMED Code(s): 201647050 ICD Code: M46.46 - DISCITIS, UNSPECIFIED, LUMBAR REGION Status: Acute Current Visit: Yes (2) Psoas abscess, right SNOMED Code(s): 892800731 ICD Code: K68.12 - PSOAS MUSCLE ABSCESS Status: Acute Current Visit: Yes (3) Debility SNOMED Code(s): 50876524 ICD Code: R53.81 - OTHER MALAISE Status: Acute Current Visit: Yes (4) Ileostomy in place SNOMED Code(s): 811734048 ICD Code: Z93.2 - ILEOSTOMY STATUS Status: Acute Current Visit: Yes (5) Pancytopenia SNOMED Code(s): 807887431 ICD Code: D61.818 - OTHER PANCYTOPENIA Status: Chronic Current Visit: Yes (6) Marginal zone lymphoma SNOMED Code(s): 513551150, 162675108 ICD Code: C85.80 - [facility] TYPES OF NON-HODGKIN LYMPHOMA, UNSPECIFIED SITE Status: Chronic Current Visit: No (7) Malnutrition SNOMED Code(s): 05508726 ICD Code: E46 - UNSPECIFIED PROTEIN-CALORIE MALNUTRITION Status: Acute Current Visit: Yes Qualifiers: Malnutrition type: protein-calorie malnutrition Protein-calorie malnutrition severity: moderate Qualified Code(s): E44.0 - Moderate protein- calorie malnutrition (8) Decreased appetite SNOMED Code(s): 76484174 ICD Code: R63.0 - ANOREXIA Status: Acute Current Visit: Yes (9) Asthma SNOMED Code(s): 609584753 ICD Code: J45.909 - UNSPECIFIED ASTHMA, UNCOMPLICATED Status: Chronic Current Visit: No Qualifiers: Asthma severity: moderate Asthma persistence: persistent Asthma complication type: uncomplicated Qualified Code(s): J45.40 - Moderate persistent asthma, uncomplicated (10) Chronic sinusitis SNOMED Code(s): 50136937 ICD Code: J32.9 - CHRONIC SINUSITIS, UNSPECIFIED Status: Chronic Current Visit: No Qualifiers: Sinusitis location: pansinusitis Qualified Code(s): J32.4 - Chronic pansinusitis (11) BPH (benign prostatic hyperplasia) SNOMED Code(s): 187817676 ICD Code: N40.0 - BENIGN PROSTATIC HYPERPLASIA WITHOUT LOWER URINRY TRACT SYMP Status: Chronic Current Visit: No Qualifiers: Lower urinary tract symptom presence: symptoms absent Qualified Code(s): N40.0 - Benign prostatic hyperplasia without lower urinary tract symptoms (12) GERD (gastroesophageal reflux disease) SNOMED Code(s): 075482726 ICD Code: K21.9 - GASTRO-ESOPHAGEAL REFLUX DISEASE WITHOUT ESOPHAGITIS Status: Chronic Current Visit: No Qualifiers: Esophagitis presence: esophagitis presence not specified Qualified Code(s) : K21.9 - Gastro-esophageal reflux disease without esophagitis (13) Hypomagnesemia SNOMED Code(s): 748552167 ICD Code: E83.42 - HYPOMAGNESEMIA Status: Acute Current Visit: Yes - Patient Summary/Data Operative Procedure(s) Performed: none Complications: none Consults: Consultations 07/01/18 11:46 OT Evaluation and Treatment [CONS] Routine PT Evaluation and Treatment [CONS] Routine Labs Pending at D/C: none Recommended Follow-up Testing/Procedures: none Planned Operative Procedure(s) after DC: none Hospital Course: Mr. Day was admitted to [facility]. He received his once daily antibiotics and his labs were monitored weekly and stable. His pain remained controlled on oral medications and he was able to progress well with therapies. It is felt he is prepared for dismissal home to continue outpatient therapies and outpatient antibiotics. His hospitalization was complicated by hypomagnesemia for which he was started on oral replacement; he tolerated this well. His appetite was also very poor upon admission and only improved slightly during his hospitalization; he is optimistic this will improve further once he is able to return home to his usual environment. He did have some delirium early on as well but that has now cleared as well. His hospitalization has otherwise been uncomplicated. - Patient Instructions Diet: Usual Diet as Tolerated Activity: As Tolerated Driving: Do Not Drive (while on narcotics) Showering/Bathing: May Shower Notify Provider of: Fever, Increased Pain, Swelling and Redness, Drainage, Nausea and/or Vomiting - Discharge Plan *PRESCRIPTION DRUG MONITORING PROGRAM REVIEWED*: No *COPY OF PRESCRIPTION DRUG MONITORING REPORT IN PATIENT MANDO: No Prescriptions/Med Rec: Ergocalciferol (Vitamin D2) [Vitamin D2] 50,000 units PO Q7D #8 cap Magnesium Chloride [Mag-64] 128 mg PO BID #120 tab.er Home Medications: Home Meds Albuterol [Ventolin HFA] 2 puff IH Q4H PRN 03/06/17 [History] Omeprazole 20 mg PO DAILY 03/06/17 [History] Aspirin [Halfprin] 81 mg PO DAILY 08/05/17 [History] Fluticasone Propionate [Flonase] 1 spray NASBOTH BID 08/05/17 [History] Fluticasone Propionate [Flovent HFA 110 MCG] 2 puff INH BID 08/05/17 [History] Dutasteride [Avodart] 0.5 mg PO DAILY 08/26/17 [History] Furosemide [Lasix] 40 mg PO DAILY PRN 08/26/17 [History] Cetirizine [ZyrTEC] 10 mg PO DAILY 01/16/18 [History] Sulfamethoxazole/Trimethoprim [Bactrim Ds Tablet] 1 each PO MOWEFR 04/08/18 [ History] Cyclobenzaprine [Flexeril] 10 mg PO TID PRN #21 tablet 06/09/18 [Rx] Folic Acid 1 mg PO DAILY 07/01/18 [History] Sodium Chloride 0.9% [Normal Saline] 10 ml FLUSH ASDIRECTED PRN 07/01/18 [ History] cefTRIAXone [Rocephin] 2 gm IV DAILY 07/01/18 [History] Acetaminophen [Tylenol Extra Strength] 500 mg PO Q6H PRN tablet 07/19/18 [Rx] Acetaminophen/HYDROcodone [[place] 325-5 MG] 1 tab PO Q6H PRN tablet 07/19/18 [Rx ] Ergocalciferol (Vitamin D2) [Vitamin D2] 50,000 units PO Q7D #8 cap 07/19/18 [Rx ] Heparin Sodium [Heparin Lock Flush 100 Units/ML] 300 unit IVPUSH ASDIRECTED PRN syringe 07/19/18 [Rx] Heparin Sodium [Heparin Lock Flush 100 Units/ML] 300 unit IVPUSH DAILY@1015 syringe 07/19/18 [Rx] Magnesium Chloride [Mag-64] 128 mg PO BID #120 tab.er 07/19/18 [Rx] Pharmacy to Dose - Vancomycin 1 dose .XX ASDIRECTED each 07/19/18 [Rx] Sodium Chloride 0.9% [Normal Saline] 250 ml IV DAILY@0900 advbag 07/19/18 [Rx] Sodium Chloride 0.9% [Saline Flush] 10 ml IV BID syringe 07/19/18 [Rx] Vancomycin 1 gm IV DAILY@0900 sdv 07/19/18 [Rx] Referrals: Danelle Ryder MD [Primary Care Provider] - 08/02/18 - Discharge Summary/Plan Comment DC Time >30 min.: No - General Info Date of Service: 07/19/18 Subjective Update: Patient is doing well this morning. He is excited to go home. He slept ok last night. Pain remains controlled and PT went well yesterday. His appetite is still not back to normal but is steadily improving. Occasional nausea but no vomiting. No abdominal pain. He had a low grade temp this morning but no other fever or chills. - Review of Systems General: Reports: No Symptoms HEENT: Reports: No Symptoms Pulmonary: Reports: No Symptoms Cardiovascular: Reports: No Symptoms Gastrointestinal: Reports: No Symptoms Genitourinary: Reports: No Symptoms Musculoskeletal: Reports: Back Pain Skin: Reports: No Symptoms - Patient Data Vitals - Most Recent: Last Vital Signs Temp 37.4 C 07/19/18 06:00 Pulse 90 07/19/18 06:00 Resp 18 07/19/18 06:00 BP 105/56 L 07/19/18 06:00 Pulse Ox 94 L 07/19/18 06:00 Weight - Most Recent: 84.368 kg Med Orders - Current: Current Medications Acetaminophen (Tylenol Extra Strength) 500 mg PO Q6H PRN PRN Reason: Pain Last Admin: 07/18/18 13:03 Dose: 500 mg Hydrocodone Bitart/Acetaminophen ([place] 325-5 Mg) 1 tab PO Q6H PRN PRN Reason: Pain Last Admin: 07/19/18 05:59 Dose: 1 tab Albuterol (Proventil Neb Soln) 2.5 mg INH Q4H PRN PRN Reason: SHORTNESS OF BREATH Aspirin (Halfprin) 81 mg PO DAILY GREGG Last Admin: 07/19/18 08:29 Dose: 81 mg Ceftriaxone Sodium (Rocephin) 2 gm IV DAILY@0900 [facility] Last Admin: 07/18/18 08:09 Dose: 2 gm Cyclobenzaprine HCl (Flexeril) 10 mg PO TID PRN PRN Reason: Muscle Spasm Last Admin: 07/18/18 13:03 Dose: 10 mg Enoxaparin Sodium (Lovenox) 40 mg SUBCUT DAILY [facility] Last Admin: 07/19/18 08:26 Dose: 40 mg Ergocalciferol (Vitamin D2) 50,000 units PO Q7D [facility] Last Admin: 07/17/18 08:45 Dose: 50,000 units Fluticasone Propionate (Flonase) 0 gm NASBOTH BID [facility] Last Admin: 07/19/18 08:27 Dose: 1 spray Folic Acid (Folic Acid) 1 mg PO DAILY [facility] Last Admin: 07/19/18 08:29 Dose: 1 mg Furosemide (Lasix) 40 mg PO DAILY PRN PRN Reason: Edema Guaifenesin (Robitussin) 200 mg PO Q4H PRN PRN Reason: Cough Last Admin: 07/16/18 03:27 Dose: 200 mg Heparin Sodium (Porcine) (Heparin Lock Flush 100 Units/Ml) 300 unit IVPUSH ASDIRECTED PRN PRN Reason: Other Last Admin: 07/17/18 06:25 Dose: 300 unit Heparin Sodium (Porcine) (Heparin Lock Flush 100 Units/Ml) 300 unit IVPUSH DAILY@1015 [facility] Last Admin: 07/18/18 11:40 Dose: 300 unit Vancomycin HCl 1 gm/ Sodium (Chloride) 250 mls @ 250 mls/hr IV DAILY@0900 [facility] Last Admin: 07/19/18 08:28 Dose: 250 mls/hr Loperamide HCl (Imodium) 2 mg PO ASDIRECTED PRN PRN Reason: DIARRHEA Loratadine (Claritin) 10 mg PO DAILY [facility] Last Admin: 07/19/18 08:28 Dose: 10 mg Magnesium Chloride (Mag-64) 128 mg PO BID [facility] Last Admin: 07/19/18 08:28 Dose: 128 mg Mometasone Furoate (Asmanex 220 Mcg) 1 puff INH DAILY [facility] Last Admin: 07/19/18 08:27 Dose: 1 puff Omeprazole (Omeprazole) 20 mg PO DAILY@0700 [facility] Last Admin: 07/19/18 05:59 Dose: 20 mg Ondansetron HCl (Zofran Odt) 4 mg PO TID PRN PRN Reason: NAUSEA Last Admin: 07/17/18 11:51 Dose: 4 mg Prednisolone Acetate (Pred Forte 1% Ophth Susp) 1 ml EYERT QID PRN PRN Reason: Other Last Admin: 07/19/18 08:26 Dose: 1 drop Sodium Chloride (Saline Flush) 10 ml FLUSH ASDIRECTED PRN PRN Reason: IV USE Last Admin: 07/17/18 06:25 Dose: 10 ml Sodium Chloride (Saline Flush) 10 ml IV BID [facility] Last Admin: 07/19/18 08:28 Dose: 10 ml Trimethoprim/Sulfamethoxazole (Septra Ds) 1 tab PO MoWeFr@0900 [facility] Last Admin: 07/19/18 08:28 Dose: 1 tab Vancomycin HCl (Pharmacy To Dose - Vancomycin) 1 dose .XX ASDIRECTED [facility] Discontinued Medications Hydrocodone Bitart/Acetaminophen ([place] 325-10 Mg) 1 tab PO Q3H PRN PRN Reason: Pain Last Admin: 07/06/18 08:40 Dose: 1 tab Alteplase, Recombinant (Cathflo Activase) 2 mg IVPUSH ONETIME ONE Stop: 07/10/18 10:31 Last Admin: 07/10/18 11:32 Dose: 2 mg Ceftriaxone Sodium (Rocephin) 2 gm IV Q24H [facility] Last Admin: 07/03/18 14:23 Dose: 2 gm Ceftriaxone Sodium (Rocephin) 2 gm IV DAILY@1200 [facility] Stop: 07/06/18 13:00 Last Admin: 07/06/18 12:24 Dose: 2 gm Ergocalciferol (Vitamin D2) 50,000 units PO DAILY [facility] Last Admin: 07/03/18 08:12 Dose: 50,000 units Finasteride (Proscar) 5 mg PO DAILY [facility] Last Admin: 07/18/18 08:08 Dose: 5 mg Heparin Sodium (Porcine) (Heparin Lock Flush 100 Units/Ml) 300 unit IVPUSH DAILY [facility] Heparin Sodium (Porcine) (Heparin Lock Flush 100 Units/Ml) 300 unit IVPUSH DAILY@1500 [facility] Stop: 07/03/18 17:00 Last Admin: 07/03/18 16:45 Dose: 300 unit Heparin Sodium (Porcine) (Heparin Lock Flush 100 Units/Ml) 300 unit IVPUSH Q12H [facility] Stop: 07/06/18 13:00 Last Admin: 07/06/18 16:04 Dose: 300 unit Vancomycin HCl 1,250 mg/ (Sodium Chloride) 250 mls @ 200 mls/hr IV Q24H [facility] Stop: 07/03/18 16:00 Last Admin: 07/03/18 14:23 Dose: 200 mls/hr Vancomycin HCl 1 gm/ Sodium (Chloride) 250 mls @ 250 mls/hr IV Q12H [facility] Last Admin: 07/06/18 15:59 Dose: Not Given Vancomycin HCl 1,250 mg/ (Sodium Chloride) 250 mls @ 200 mls/hr IV DAILY@0900 [facility] Last Admin: 07/16/18 08:20 Dose: 200 mls/hr Sodium Chloride (Normal Saline) 500 mls @ 500 mls/hr IV ONETIME ONE Stop: 07/14/18 17:00 Last Admin: 07/14/18 16:23 Dose: 500 mls/hr Ketorolac Tromethamine (Toradol) 15 mg PO Q12H PRN PRN Reason: Pain Stop: 07/19/18 21:53 Last Admin: 07/18/18 00:55 Dose: 15 mg Magnesium Chloride (Mag-64) 64 mg PO BID [facility] Last Admin: 07/17/18 08:06 Dose: 64 mg Non-Formulary Medication (Vancomycin/0.9 % Sod Chloride [Vanco 1.25 Gm/250 Ml- 0.9% Nacl]) 1.25 gm IV DAILY [facility] Vancomycin HCl (Vancomycin) Confirm Administered Dose 1,500 mg .ROUTE .STK-MED ONE Stop: 07/08/18 08:56 Last Admin: 07/08/18 10:45 Dose: Not Given - Exam General: Reports: Alert, Cooperative, No Acute Distress HEENT: Reports: Mucous Membr. Moist/[place] Neck: Reports: Supple, Trachea Midline, No Thyromegaly. Denies: Lymphadenopathy Lungs: Reports: Clear to Auscultation, Normal Respiratory Effort Cardiovascular: Reports: Regular Rate, Regular Rhythm, No Murmurs GI/Abdominal Exam: Normal Bowel Sounds, Soft, Non-Tender, No Organomegaly, No Distention, No Mass Back Exam: Reports: Normal Inspection. Denies: Paraspinal Tenderness, Vertebral Tenderness Extremities: Non-Tender, No Pedal Edema, Normal Capillary Refill Skin: Reports: Warm, Dry, Intact
[2018-07-19] MEDS: cefTRIAXone 2 GM Vial IV SCH (08:52)
[2018-07-19] MEDS: Sodium Chloride 0.9% 10 ML Syringe FLUSH PRN (11:18)
[2018-07-19] MEDS: Heparin Sodium 100 Units/ML 3 ML Syringe IVPUSH SCH (11:18)
== END 2018-07-19 12:05 | disposition home or self-care (01) | DRG 551 ==
LOC: VM.MS 11:15
PROVIDERS: ADMIT Family Medicine; ATTEND Family Medicine
DX: M46.46 Discitis, unspecified, lumbar region (principal); K68.12 Psoas muscle abscess; D61.818 Other pancytopenia; E44.0 Moderate protein-calorie malnutrition; C85.80 Other specified types of non-Hodgkin lymphoma, unspecified site; J30.9 Allergic rhinitis, unspecified; K21.9 Gastro-esophageal reflux disease without esophagitis; G89.29 Other chronic pain; G62.9 Polyneuropathy, unspecified; G25.81 Restless legs syndrome; E66.9 Obesity, unspecified; E83.42 Hypomagnesemia; R53.81 Other malaise; J45.40 Moderate persistent asthma, uncomplicated; N40.0 Benign prostatic hyperplasia without lower urinary tract symptoms; Z79.82 Long term (current) use of aspirin; Z93.2 Ileostomy status; J32.8 Other chronic sinusitis; Z90.49 Acquired absence of other specified parts of digestive tract; Z68.23 Body mass index [BMI] 23.0-23.9, adult
CPT/HCPCS: 36415; 80048; 80202; 82565; 83735; 84460; 85025; 94760; 97110-GO; 97110-GP; 97116-GP; 97162-GP; 97165-GO; 97168-GO; 97530-GP; A9270-GY; J0696; J1642; J1650; J2997; J3370; J7040; J7050

== ENCOUNTER 2018-08-03 08:27 | Emergency (ER) | payer MEDICARE, OTHER ==
[2018-08-03] MEDS ORDERED: Ondansetron 8 MG in Sodium Chloride 0.9% 100 ML IV ONE (08:32)
[2018-08-03] MEDS ORDERED: Sodium Chloride 0.9% 1,000 ML IV ONE (08:32)
[2018-08-03 09:15] LABS: CHLORIDE,CL 100 mmol/L (98-107); SODIUM,NA 135 mmol/L (136-145)
[2018-08-03 09:19] LABS: ANION GAP 13.1 mmol/L (10-20)
--- NOTE | 2018-08-03 10:04 | CR ---
[id number] RAD/RAD Chest PA or AP 1V EXAM: RAD Chest PA or AP 1V INDICATION: SHORTNESS OF BREATH. COMPARISON: June 14, 2018. DISCUSSION: Right upper extremity PICC line with tip overlying the midportion of the superior vena cava. Cardiomediastinal silhouette is normal in size and contour. Left basilar subsegmental atelectasis and/or scarring. Underlying infiltrate is not excluded. Number hyperinflation. No pneumothorax. IMPRESSION: Left basilar subsegmental atelectasis and/or scarring. Underlying infiltrate is not excluded. Follow-up imaging after appropriate therapy in 4-6 weeks is recommended. Colby Mcleod DO 08/03/18 1002 Thank you for allowing us to participate in the care of your patient.
--- NOTE | 2018-08-03 10:43 | EDM.PDOC ---
ED HPI GENERAL MEDICAL PROBLEM - General Chief Complaint: Gastrointestinal Problem Time Seen by Provider: 08/03/18 08:30 Source of Information: Reports: Patient, Family History Limitations: Reports: No Limitations - History of Present Illness INITIAL COMMENTS - FREE TEXT/NARRATIVE: Pt presents with high out put from ostomy and N/V Emesis is green bilious material Has had issues with high out put from ostomy for awhile Has been seen in clinic for this and given IV fluids as outpt Pt began with increased emesis last night Was seen in clinic yesterday No fever No cough No chest pain Onset: Gradual Duration: Week(s): Location: Reports: Abdomen Severity: Moderate Associated Symptoms: Reports: Nausea/Vomiting, Weakness - Related Data Allergies Allergy/AdvReac Type Severity Reaction Status Date / Time doxycycline Allergy Other Verified 08/03/18 09:47 mold Allergy Other Verified 08/03/18 09:47 Old Spice Shaving Lotion Allergy Hives Uncoded 06/14/18 18:20 Seasonal Allergies Allergy Other Uncoded 06/14/18 18:20 Home Meds: Home Meds Albuterol [Ventolin HFA] 2 puff IH Q4H PRN 03/06/17 [History] Omeprazole 20 mg PO DAILY 03/06/17 [History] Fluticasone Propionate [Flonase] 1 spray NASBOTH BID 08/05/17 [History] Fluticasone Propionate [Flovent HFA 110 MCG] 2 puff INH BID 08/05/17 [History] Cetirizine [ZyrTEC] 10 mg PO DAILY 01/16/18 [History] Sulfamethoxazole/Trimethoprim [Bactrim Ds Tablet] 1 each PO MOWEFR 04/08/18 [ History] Cyclobenzaprine [Flexeril] 10 mg PO TID PRN #21 tablet 06/09/18 [Rx] Sodium Chloride 0.9% [Normal Saline] 10 ml FLUSH ASDIRECTED PRN 07/01/18 [ History] cefTRIAXone [Rocephin] 2 gm IV DAILY 07/01/18 [History] Acetaminophen [Tylenol Extra Strength] 500 mg PO Q6H PRN tablet 07/19/18 [Rx] Ergocalciferol (Vitamin D2) [Vitamin D2] 50,000 units PO Q7D #8 cap 07/19/18 [Rx ] Heparin Sodium [Heparin Lock Flush 100 Units/ML] 300 unit IVPUSH ASDIRECTED PRN syringe 07/19/18 [Rx] Heparin Sodium [Heparin Lock Flush 100 Units/ML] 300 unit IVPUSH DAILY@1015 syringe 07/19/18 [Rx] Magnesium Chloride [Mag-64] 128 mg PO BID #120 tab.er 07/19/18 [Rx] Pharmacy to Dose - Vancomycin 1 dose .XX ASDIRECTED each 07/19/18 [Rx] Sodium Chloride 0.9% [Normal Saline] 250 ml IV DAILY@0900 advbag 07/19/18 [Rx] Sodium Chloride 0.9% [Saline Flush] 10 ml IV BID syringe 07/19/18 [Rx] Hydrocodone/Acetaminophen [[place] 10-325 Tablet] 1 each PO BID PRN 07/28/18 [ History] Loperamide [Imodium] 2 mg PO ASDIRECTED PRN 07/28/18 [History] Vancomycin 750 mg IV DAILY@0900 07/28/18 [History] Cholestyramine/Sucrose [Cholestyramine Packet] 4 gm PO BIDMEALS 08/03/18 [ History] Past Medical History HEENT History: Reports: Allergic Rhinitis Other HEENT History: amblyopia. paroxysmal positional vertigo of left ear. retinal degeneration. tinnitus Cardiovascular History: Reports: None Respiratory History: Reports: Asthma, SOB Other Respiratory History: dyspnea on exertion. chronic bronchitis. Increased shortness of breath today Gastrointestinal History: Reports: Diverticulosis, GERD, Other (See Below) Other Gastrointestinal History: diaphragmatic hernia Genitourinary History: Reports: BPH Musculoskeletal History: Reports: Back Pain, Chronic Other Musculoskeletal History: muscle atrophy Neurological History: Reports: Neuropathy, Peripheral, Other (See Below) Other Neuro History: restless leg syndrome. 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 nasal surgery Respiratory Surgical History: Reports: None Other Respiratory Surgeries/Procedures: Patient has history of lymphoma. Lymph nodes are enlarged and pushing on his lungs states the patient and . GI Surgical History: Reports: Appendectomy, Colostomy, Other (See Below) Other GI Surgeries/Procedures: hemorrhoidectomy ext comp, hemicolectomy. Male Surgical History: Reports: Vasectomy Musculoskeletal Surgical History: Reports: None, Other (See Below) Other Musculoskeletal Surgeries/Procedures:: spinal abscess Oncologic Surgical History: Reports: None Social & Family History - Family History Family Medical History: Noncontributory Cardiac: Reports: Hypertension Other Cardiac Family History: mother had HTn : Reports: Cystic Kidney Disease Oncologic: Reports: Bone, Prostate Other Oncologic Family History: father had bone cancer and prostate cancer - Tobacco Use Smoking Status *Q: Unknown Ever Smoked - Caffeine Use Caffeine Use: Reports: None - Living Situation & Occupation Living situation: Reports: (1 girl, 1 boy), with Significant Other 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[employer]) ED ROS GENERAL - Review of Systems Review Of Systems: See Below Constitutional: Reports: Weakness Respiratory: Reports: No Symptoms Cardiovascular: Reports: No Symptoms GI/Abdominal: Reports: Nausea, Vomiting, Other (High out put from ostomy) Musculoskeletal: Reports: No Symptoms ED EXAM, GI/ABD - Physical Exam Exam: See Below Exam Limited By: No Limitations General Appearance: Mild Distress, Other (Weak) Throat/Mouth: Other (Dry membranes) Neck: Supple Respiratory/Chest: Lungs Clear Cardiovascular: Regular Rate, Rhythm GI/Abdominal Exam: Soft, Tender, Other (Ostomy intact) Extremities: No Pedal Edema Course - Vital Signs Last Recorded V/S: Last Vital Signs Temp 36.4 C 08/03/18 08:28 Pulse 89 08/03/18 09:27 Resp 16 08/03/18 09:27 BP 105/45 L 08/03/18 09:27 Pulse Ox 85 L 08/03/18 10:00 - Orders/Labs/Meds Orders: Active Orders 24 hr Category Date Time Status UA RFX BONI AND CULT IF INDIC [URIN] Stat Lab 08/03/18 08:31 Ordered Labs: Laboratory Tests 08/03/18 08/03/18 Range/Units 08:46 08:46 WBC 5.0 (4.0-10.0) x10^3/uL RBC 3.10 L (4.5-6.0) x10^6/uL Hgb 8.6 L (14.0-18.0) g/dL Hct 26.6 L (40.0-52.0) % MCV 85.8 (78.0-93.0) fL MCH 27.7 (26.0-32.0) pg MCHC 32.3 (32.0-36.0) g/dL RDW Coeff of Derian 16.3 H (10.0-15.0) % Plt Count 125 L (130-400) x10^3/uL Add Manual Diff Yes Neutrophils % (Manual) 74 (50-80) % Band Neutrophils % 1 (0-6) % Lymphocytes % (Manual) 7 L (25-50) % Reactive Lymphs % 1 H (0) % Monocytes % (Manual) 14 H (2-11) % Eosinophils % (Manual) 2 (0-4) % Basophils % (Manual) 1 (0-1) % Hypersegmented Neuts Few H Platelet Estimate Decreased L Anisocytosis 1+ slight H Ovalocytes 2+ moderate H Rouleaux 1+ slight H Sodium 135 L (136-145) mmol/L Potassium 4.1 (3.5-5.1) mmol/L Chloride 100 (98-107) mmol/L Carbon Dioxide 26 (21-32) mmol/L Anion Gap 13.1 (10-20) mmol/L BUN 18 (7-18) mg/dL Creatinine 1.6 H (0.70-1.30) mg/dL Est Cr Clr Drug Dosing TNP Estimated GFR (MDRD) 42 Glucose 136 H (74-106) mg/dL Calcium 9.6 (8.5-10.1) mg/dL Corrected Calcium 10.72 H (8.5-10.1) mg/dL Total Bilirubin 0.4 (0.2-1.0) mg/dL AST 22 (15-37) U/L ALT 10 L (16-63) U/L Alkaline Phosphatase 101 (46-116) U/L Total Protein 6.3 L (6.4-8.2) g/dL Albumin 2.6 L (3.4-5.0) g/dL Globulin 3.7 Albumin/Globulin Ratio 0.70 Meds: Medications Discontinued Medications Generic Name Dose Route Start Last Admin Trade Name Freq PRN Reason Stop Dose Admin Sodium Chloride 1,000 mls @ 1,000 mls/hr 08/03/18 08:32 08/03/18 08:55 Normal Saline IV 08/03/18 09:31 1,000 mls/hr ONETIME ONE Administration Ondansetron HCl 8 mg/ Sodium 104 mls @ 400 mls/hr 08/03/18 08:32 08/03/18 08: 56 Chloride IV 08/03/18 08:47 400 mls/hr ONETIME ONE Administration - Re-Assessments/Exams Free Text/Narrative Re-Assessment/Exam: 08/03/18 10:44 Pt given IVF NS 1 L and Zofran 8 mg IV Pt noted to be hypoxic at times with sats to 85% while resting or sleeping Oxygen placed and sats increased to 94% Lab with increased Cr today CXR with atelectasis D/W Dr Bhat Recommends transfer to [place] D/W Dr Francois [facility] Will accept Departure - Departure Time of Disposition: 11:00 Disposition: DC/Tfer to [facility] Clinical Impression: Vomiting, Ileostomy in place - Discharge Information *PRESCRIPTION DRUG MONITORING PROGRAM REVIEWED*: Not Applicable *COPY OF PRESCRIPTION DRUG MONITORING REPORT IN PATIENT MANDO: Not Applicable Referrals: Danelle Ryder MD [Primary Care Provider] - Forms: ED Department Discharge, Interfacility Transfer EMTALA ED Communication - Discussed Case With (1) Discussed Case With (1): Admitting Provider Person/s Notified (1): Dr Keith Time Called: 10:30 - My Orders Last 24 Hours: My Active Orders 08/03/18 08:31 UA RFX BONI AND CULT IF INDIC [URIN] Stat - Assessment/Plan Last 24 Hours: My Active Orders 08/03/18 08:31 UA RFX BONI AND CULT IF INDIC [URIN] Stat
[2018-08-03 11:58] VITALS: BP 103/51
== END 2018-08-03 12:15 | disposition short-term general hospital (02) ==
LOC: VM.ED 08:27
DX: R11.2 Nausea with vomiting, unspecified (principal); Z93.2 Ileostomy status; K21.9 Gastro-esophageal reflux disease without esophagitis; Z88.1 Allergy status to other antibiotic agents; Z91.09 Other allergy status, other than to drugs and biological substances; Z91.018 Allergy to other foods; Z79.899 Other long term (current) drug therapy
CPT/HCPCS: 71045; 80053; 81001; 85025; 96361; 96374; 99285-25; J2405; J7030; J7050